=== PATIENT | female | born 1955 | race African-American/Black ===

== ENCOUNTER 2016-12-05 17:10 | Inpatient (IN) | payer OTHER ==
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
[2016-12-05 22:22] LABS: BASOPHIL 0.5 % (0-2.0); EOSINOPHIL 0.4 % (0-4.5); MCH 26.2 pg (25.7-33.7); MCHC 32.4 g/dl (32.0-36.0); MEAN CELL VOLUME 80.9 fl (80-96); MEAN PLT VOLUME 8.3 fl (7.5-11.1); PLATELET COUNT 405 K/MM3 (134-434); RDW 15.8 % (11.6-15.6); WHITE BLOOD COUNT 16.2 K/mm3 (4.0-10.0)
[2016-12-05 22:46] LABS: INR 1.49 (0.82-1.09); PROTHROMBIN TIME (PATIENT) 16.5 SEC (9.98-11.88)
[2016-12-05 22:54] LABS: ALBUMIN 1.9 g/dl (3.4-5.0); ALK PHOS 440 U/L (45-117); ANION GAP 13 (8-16); BILIRUBIN,TOTAL 1.8 mg/dL (0.2-1.0); CALCIUM 8.7 mg/dL (8.5-10.1); CO2 20 mmol/L (21-32); CREATININE 1.5 mg/dL (0.55-1.02); GLUCOSE,RANDOM 94 mg/dL (74-106); SGOT/AST 266 U/L (15-37); SGPT/ALT 178 U/L (12-78); TOT PROT 7.6 g/dl (6.4-8.2)
[2016-12-05 22:56] LABS: CPK 52 IU/L (26-192); TROPONIN I < 0.02 ng/ml (0.00-0.05)
[2016-12-06] MEDS ORDERED: FUROSEMIDE 40 MG/4 ML INJECTABLE VIAL IVPUSH ONE (00:52)
[2016-12-06 01:08] LABS: URINE APPEARANCE CLOUDY; URINE BLOOD NEGATIVE (NEGATIVE); URINE COLOR AMBER; URINE GLUCOSE (UA) NEGATIVE (NEGATIVE); URINE KETONE NEGATIVE (NEGATIVE); URINE LEUK ESTERASE NEGATIVE (NEGATIVE); URINE NITRITE NEGATIVE (NEGATIVE); URINE UROBILINOGEN 4.0 E.U/dl mg/dL (0.2-1.0)
[2016-12-06 01:10] LABS: URINE PROTEIN 1+ (NEGATIVE)
[2016-12-06 01:12] LABS: URINE BACTERIA FEW /hpf (NONE SEEN); URINE HYALINE CAST 20 /lpf; URINE MUCUS RARE; URINE RBC 1 /hpf (0-3); URINE WBC 3 /hpf (3-5)
[2016-12-06] MEDS ORDERED: ENOXAPARIN NA (PORCINE) 80 MG/0.8 ML DISP.SYRIN SQ SCH (02:30)
[2016-12-06] MEDS ORDERED: ENOXAPARIN NA (PORCINE) 80 MG/0.8 ML DISP.SYRIN SQ ONE (03:05)
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
[2016-12-06 06:11] VITALS: BMI 39.2
[2016-12-06] MEDS ORDERED: morphine CARPU-JECT 2 MG/1 ML DISP.SYRIN IVPUSH ONE (06:58)
[2016-12-06 07:07] LABS: BASOPHIL 0.4 % (0-2.0); EOSINOPHIL 0.9 % (0-4.5); MCH 25.6 pg (25.7-33.7); MCHC 31.2 g/dl (32.0-36.0); MEAN PLT VOLUME 8.4 fl (7.5-11.1); NEUTROPHILS 82.1 % (42.8-82.8); PLATELET COUNT 397 K/MM3 (134-434); RDW 15.7 % (11.6-15.6); WHITE BLOOD COUNT 17.3 K/mm3 (4.0-10.0)
[2016-12-06 08:08] LABS: ALK PHOS 439 U/L (45-117); ANION GAP 13 (8-16); BILIRUBIN,TOTAL 2.1 mg/dL (0.2-1.0); CALCIUM 8.8 mg/dL (8.5-10.1); CO2 22 mmol/L (21-32); CPK 93 IU/L (26-192); CREATININE 1.8 mg/dL (0.55-1.02); GLUCOSE,RANDOM 75 mg/dL (74-106); MAGNESIUM 2.1 mg/dL (1.8-2.4); PHOSPHOROUS 4.8 mg/dL (2.5-4.9); SGOT/AST 287 U/L (15-37); SGPT/ALT 181 U/L (12-78); TOT PROT 7.7 g/dl (6.4-8.2); TROPONIN I < 0.02 ng/ml (0.00-0.05)
--- NOTE | 2016-12-06 09:57 | CON.CARD ---
Consult Consult Specialty:: cardiology Reason for Consultation:: martinez - History of Present Illness History of Present Illness: 61 y/o F with a PMHx of hypertension, hypercholesterolemia, and basal cell cancer of the upper lip, recent diagnosis of liver mass presents to the ED with increasing dyspnea on exertion. [facility] for right sided pain. She had multiple CT scans (head, abdomen ) where she was diagnosed with a liver mass. Upon liver mass finding, she was introduced to a bingo manager/oncologist. She has called the office multiple times with no call back. She appears upset because she states she is more symptomatic. Patient also reports she has bilateral leg swelling, which she states is chronic since her bilateral knee replacement. She denies chest pain. She denies nausea, vomiting, diarrhea. She denies urinary complaints. - History Source History Provided By: Patient, Medical Record - Past Medical History Cardio/Vascular: Yes: HTN, Hyperlipdemia Gastrointestinal: Yes: GERD ...: No Psych: Yes: Other (ex ivda) - Past Surgical History Past Surgical History: Yes: Joint Replacement (TKR left) - Alcohol/Substance Use Hx Alcohol Use: No History of Substance Use: reports: Heroin - Smoking History Smoking history: Current some day smoker Have you smoked in the past 12 months: Yes Aproximately how many cigarettes per day: 3 - Social History Usual Living Arrangement: Alone History of Recent Travel: No Home Medications - Allergies Allergies/Adverse Reactions: Allergies Allergy/AdvReac Type Severity Reaction Status Date / Time No Known Allergies Allergy Verified 12/05/16 17:17 - Home Medications Home Medications: Ambulatory Orders Methadone [Dolophine -] 110 mg PO DAILY #7 tab.disper 10/01/13 Aspirin [ASA -] 81 mg PO DAILY 03/02/16 Levofloxacin [Levaquin] 500 mg PO DAILY #10 tablet 03/07/16 Lipase/Protease/Amylase [Cornel Biggs 6,000 Units Capsule] 3 cap PO TIDCM capsule. 03/07/16 Methadone [Dolophine -] 110 mg PO DAILY tablet MDD 1 03/07/16 Metronidazole [Flagyl -] 250 mg PO TID #21 tablet 03/07/16 Review of Systems - Review of Systems Constitutional: reports: No Symptoms Eyes: reports: No Symptoms HENT: reports: No Symptoms Neck: reports: No Symptoms Cardiovascular: reports: No Symptoms, Shortness of Breath Gastrointestinal: reports: No Symptoms Genitourinary: reports: No Symptoms Breasts: reports: No Symptoms Reported Musculoskeletal: reports: No Symptoms Integumentary: reports: No Symptoms Neurological: reports: No Symptoms Endocrine: reports: No Symptoms Hematology/Lymphatic: reports: No Symptoms Psychiatric: reports: No Symptoms Vital Signs: Vital Signs Temperature 98.6 F 12/06/16 08:33 Pulse Rate 102 H 12/06/16 08:33 Respiratory Rate 18 12/06/16 08:33 Blood Pressure 144/80 12/06/16 08:33 O2 Sat by Pulse Oximetry (%) 96 12/06/16 05:54 Constitutional: Yes: Well Nourished, No Distress, Calm Eyes: Yes: WNL, Conjunctiva Clear, EOM Intact HENT: Yes: WNL, Atraumatic, Normocephalic Neck: Yes: WNL, Supple, Trachea Midline Respiratory: Yes: WNL, Regular, CTA Bilaterally Gastrointestinal: Yes: WNL, Normal Bowel Sounds Renal/: Yes: WNL Cardiovascular: Yes: WNL, Regular Rate and Rhythm Musculoskeletal: Yes: WNL Extremities: Yes: WNL Edema: Yes Integumentary: Yes: WNL Neurological: Yes: WNL, Alert, Oriented ...Motor Strength: WNL Psychiatric: Yes: WNL, Alert, Oriented - Other Data Labs, Other Data: CBC, BMP 12/06/16 06:05 12/06/16 06:05 INR, PTT INR 1.49 (0.82-1.09) H D 12/05/16 21:57 Troponin, BNP 12/06/16 06:05 Troponin I < 0.02 Troponin, BNP 12/06/16 06:05 Troponin I < 0.02 Imaging - Results Chest X-ray: Image Reviewed (no i/e) EKG: Image Reviewed (s tachy) Problem List - Problems (1) Abnormal liver function tests Code(s): R79.89 - OTHER SPECIFIED ABNORMAL FINDINGS OF BLOOD CHEMISTRY (2) Anemia Code(s): D64.9 - ANEMIA, UNSPECIFIED Qualifiers: Anemia type: unspecified type Qualified Code(s): D64.9 - Anemia, unspecified (3) Edema of both legs Code(s): R60.0 - LOCALIZED EDEMA (4) Exertional dyspnea Code(s): R06.09 - OTHER FORMS OF DYSPNEA (5) Renal insufficiency Code(s): N28.9 - DISORDER OF KIDNEY AND URETER, UNSPECIFIED (6) Abdominal pain Code(s): R10.9 - UNSPECIFIED ABDOMINAL PAIN (7) Abnormal vaginal bleeding Code(s): N93.9 - ABNORMAL UTERINE AND VAGINAL BLEEDING, UNSPECIFIED (8) Headache Code(s): R51 - HEADACHE Qualifiers: Headache chronicity pattern: unspecified pattern Intractability: not intractable (9) Hypertension Code(s): I10 - ESSENTIAL (PRIMARY) HYPERTENSION (10) IBS (irritable bowel syndrome) Code(s): K58.9 - IRRITABLE BOWEL SYNDROME WITHOUT DIARRHEA (11) Lower abdominal pain Code(s): R10.30 - LOWER ABDOMINAL PAIN, UNSPECIFIED (12) Medication refill Code(s): Z76.0 - ENCOUNTER FOR ISSUE OF REPEAT PRESCRIPTION (13) Rib pain on left side Code(s): R07.81 - PLEURODYNIA (14) Viral syndrome Code(s): B34.9 - VIRAL INFECTION, UNSPECIFIED Assessment/Plan hypertension, hypercholesterolemia, basal cell cancer of the upper lip, recent diagnosis of liver mass abnormal LFT's martinez edema chf plan r/o PE/check d dimers echo obtaine records of maulik w/u at [facility] f/u
[2016-12-06] MEDS ORDERED: FUROSEMIDE 40 MG/4 ML INJECTABLE VIAL IVPUSH SCH (10:00)
[2016-12-06 12:47] LABS: CPK 57 IU/L (26-192); TROPONIN I < 0.02 ng/ml (0.00-0.05)
[2016-12-06] MEDS ORDERED: HEPARIN NA (PORCINE) 5,000 UNITS/ML 1ML VIAL IVPUSH PRN (13:33)
[2016-12-06] MEDS ORDERED: HEPARIN NA (PORCINE) 5,000 UNITS/ML 1ML VIAL IVPUSH ONE ×2 (13:37)
--- NOTE | 2016-12-06 13:57 | HOSP ---
Physical Examination Vital Signs: Vital Signs Temperature 99.4 F 12/06/16 13:40 Pulse Rate 105 H 12/06/16 13:40 Respiratory Rate 20 12/06/16 13:40 Blood Pressure 141/70 12/06/16 13:40 O2 Sat by Pulse Oximetry (%) 96 12/06/16 09:00 Findings/Remarks: ECHO results discussed with Dr. Phillips ([id number]), oscillating mass at the level of the pulmonic valve, cannot exclude thrombus. Start on heparin gtt, PE protocol Discussed with Dr. Hogan [id number]) who will evaluate the patient for V/Q scan Placed call to Dr. Alvarado ([id number]), patient will need BAM Discussed with Dr. Fernandez ([id number]), hx of IVDA (patient reports last use 1 month ago). Will start abx. Blood cultures and HIV testing ordered Current Medications Generic Name Dose Route Start Last Admin Trade Name Freq PRN Reason Stop Dose Admin Heparin Sodium (Porcine) 1,000 unit 12/06/16 13:33 Heparin - IVPUSH PRN PRN Heparin Heparin Sodium (Porcine) 5,000 unit 12/06/16 13:33 Heparin - IVPUSH PRN PRN Heparin Heparin Sodium (Porcine) 25, 500 mls @ 37.08 mls/hr 12/06/16 13:45 12/06/16 15: 57 000 unit/ Sodium Chloride IV 37.08 mls/hr TITR KEITH Administration Protocol 1,854 UNIT/HR Piperacillin Sod/Tazobactam 50 mls @ 100 mls/hr 12/07/16 09:00 Sod 2.25 gm/ Dextrose IVPB Q6H-IV KEITH Protocol Piperacillin Sod/Tazobactam 50 mls @ 100 mls/hr 12/06/16 16:30 Sod 2.25 gm/ Dextrose IVPB 12/07/16 03:29 Q6H-IV KEITH Protocol Objective: Vital Signs Period Temp Pulse Resp BP Sys/Crain Pulse Ox Last 24 Hr 98.6 F-99.4 F 80-120 18-20 121-144/70-94 96-99 Physical Exam: General: lethargic, A&Ox3 Lungs: Decreased breath sound b/l Heart: RRR, S1S2, +murmur Abd: Hepatomegaly, distended. Normoactive bowel sounds Ext: Trace b/l lower extremity edema Neuro: CN 2-12 intact CBCD WBC 17.3 K/mm3 (4.0-10.0) H 12/06/16 06:05 RBC 3.03 M/mm3 (3.60-5.2) L 12/06/16 06:05 Hgb 7.8 GM/dL (10.7-15.3) L 12/06/16 06:05 Hct 24.8 % (32.4-45.2) L 12/06/16 06:05 MCV 82.0 fl (80-96) 12/06/16 06:05 MCHC 31.2 g/dl (32.0-36.0) L 12/06/16 06:05 RDW 15.7 % (11.6-15.6) H 12/06/16 06:05 Plt Count 397 K/MM3 (134-434) 12/06/16 06:05 MPV 8.4 fl (7.5-11.1) 12/06/16 06:05 CMP Sodium 132 mmol/L (136-145) L 12/06/16 06:05 Potassium 5.3 mmol/L (3.5-5.1) H 12/06/16 06:05 Chloride 97 mmol/L (98-107) L 12/06/16 06:05 Carbon Dioxide 22 mmol/L (21-32) 12/06/16 06:05 Anion Gap 13 (8-16) 12/06/16 06:05 BUN 36 mg/dL (7-18) H D 12/06/16 06:05 Creatinine 1.8 mg/dL (0.55-1.02) H 12/06/16 06:05 Creat Clearance w eGFR 28.60 (>60) 12/06/16 06:05 Random Glucose 75 mg/dL (74-106) D 12/06/16 06:05 Calcium 8.8 mg/dL (8.5-10.1) 12/06/16 06:05 Total Bilirubin 2.1 mg/dL (0.2-1.0) H 12/06/16 06:05 AST 287 U/L (15-37) H 12/06/16 06:05 ALT 181 U/L (12-78) H 12/06/16 06:05 Alkaline Phosphatase 439 U/L (45-117) H 12/06/16 06:05 Total Protein 7.7 g/dl (6.4-8.2) 12/06/16 06:05 Albumin 2.0 g/dl (3.4-5.0) L 12/06/16 06:05 CARDIAC ENZYMES Creatine Kinase 57 IU/L (26-192) 12/06/16 11:55 Troponin I < 0.02 ng/ml (0.00-0.05) 12/06/16 11:55 Assessment: This is a 61 year old female with PMHx of basal cell carcinoma of her upper lip, hyperlipidemia, HTN, IVDA on methadone, recently diagnosed liver mass who presented to the ED with shortness of breath and dyspnea on exertion. Plan: 1) Shortness of breath, NARVAEZ - PE vs. new onset CHF - Unable to perform CTA 2/2 COLEMAN - Given Lovenox at 3am. Start on Heparin gtt with PE protocol - ECHO with echogenic, moderate size occulating mass seen at level of pulmonic valve, thrombus needs to be excluded. Hyperdynamic cardiovascular state - Lower extremity doppler negative for DVT - Discussed with Dr. Amaro, will need BAM. Dr. Amaro states he will discuss BAM with Dr. 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 Light (oncologist who evaluated the patient at [facility] ) who states suspicion for HCC. Triple phase MRI or CT was to be done as outpatient for diagnostics - EGD/colonoscopy at [facility] did not reveal any primary lesions Worsening liver functions - F/u liver ultrasound 4) Chronic anemia: - F/u iron studies 5) COLEMAN: - Retention vs. prerenal vs. lasix induced - F/u urine studies - Place landrum catheter for accurate I&O 6) Hx of IVDA - Patient reportedly on Methadone 110mg po daily. Was unable to verify today, will attempt to verify tomorrow 7) F/E/N: - Monitor electrolytes - Appears to have chronic Hyperkalemia: was taken off losartan because of it - Sodium controlled diet, NPO after midnight for possible BAM tomorrow and liver ultrasound 8) Prophylaxis: - On Heparin gtt 9) Dispo: - Requires continued inpatient care CODE STATUS: FULL CODE Labs: CBC, BMP 12/06/16 06:05 12/06/16 06:05
--- NOTE | 2016-12-06 14:24 | CON.PULM ---
Consult Consult Specialty:: PULMONARY Referred by:: HEBER Reason for Consultation:: ABN ECHO - History of Present Illness Chief Complaint: WEAKNESS/SOB/FAILURE TO THRIVE History of Present Illness: 61 y/o F with a PMHx of hypertension, hypercholesterolemia, and basal cell cancer of the upper lip, recent diagnosis of liver mass presents to the ED with increasing dyspnea on exertion. Patient was recently admitted at [facility] from 11/25 - 11/27 for right sided pain. She had multiple CT scans (head, abdomen chest) where she was diagnosed with a liver mass. Upon liver mass finding, she was introduced to a dental hygiene professor/oncologist. She has called the office multiple times with no call back. She appears upset because she states she is more symptomatic. Patient also reports she has bilateral leg swelling, which she states is chronic since her bilateral knee replacement. She denies chest pain. She denies nausea, vomiting, diarrhea. She denies urinary complaints. Former heroin addict now on 110mg methadone. Patient states she was tested a long time ago for hep b /c and hiv and was found to be negative. Our service has been called due to abn echo findings of a possible thrombus at level of pulmonic valve. 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 No: AFIB Gastrointestinal: Yes: GERD ...: No Psych: Yes: Other (ex ivda) - Past Surgical History Past Surgical History: Yes: Joint Replacement (TKR left) - Alcohol/Substance Use Hx Alcohol Use: No History of Substance Use: reports: Heroin - Smoking History Smoking history: Current some day smoker Have you smoked in the past 12 months: Yes Aproximately how many cigarettes per day: 3 - Social History Usual Living Arrangement: Alone Place of : [facility] History of Recent Travel: No Home Medications - Allergies Allergies/Adverse Reactions: Allergies Allergy/AdvReac Type Severity Reaction Status Date / Time No Known Allergies Allergy Verified 12/05/16 17:17 - Home Medications Home Medications: Ambulatory Orders Methadone [Dolophine -] 110 mg PO DAILY #7 tab.disper 10/01/13 Aspirin [ASA -] 81 mg PO DAILY 03/02/16 Levofloxacin [Levaquin] 500 mg PO DAILY #10 tablet 03/07/16 Lipase/Protease/Amylase [Cornel Biggs 6,000 Units Capsule] 3 cap PO TIDCM capsule. 03/07/16 Methadone [Dolophine -] 110 mg PO DAILY tablet MDD 1 03/07/16 Metronidazole [Flagyl -] 250 mg PO TID #21 tablet 03/07/16 Family Disease History - Family Disease History Family History: Unremarkable Review of Systems - Review of Systems Constitutional: reports: Lethargy, Loss of Appetite, Weakness HENT: denies: Difficult Swallowing Neck: denies: Decreased ROM Cardiovascular: denies: Chest Pain Respiratory: reports: SOB on Exertion. denies: Hemoptysis Gastrointestinal: reports: Abdominal Pain Genitourinary: reports: No Symptoms Physical Exam Vital Sings: Vital Signs Temperature 99.4 F 12/06/16 13:40 Pulse Rate 105 H 12/06/16 13:40 Respiratory Rate 20 12/06/16 13:40 Blood Pressure 141/70 12/06/16 13:40 O2 Sat by Pulse Oximetry (%) 96 12/06/16 09:00 Constitutional: Yes: Anxious Eyes: Yes: EOM Intact HENT: Yes: Normocephalic Neck: Yes: Trachea Midline Cardiovascular: Yes: Tachycardia, S1, S2 Respiratory: Yes: CTA Bilaterally Gastrointestinal: Yes: Other (DISTENDED TENSE ABDOMEN) Edema: LLE: 1+, RLE: 1+ Neurological: Yes: Alert Labs: CBC, BMP 12/06/16 06:05 12/06/16 06:05 REST REVIEWED Imaging - Results Chest X-ray: Image Reviewed Cat Scan: Report Reviewed (CHEST/ABD/PELVIS) Other: Report Reviewed (ECHO) Problem List - Problems (1) Abnormal liver function tests Code(s): R79.89 - OTHER SPECIFIED ABNORMAL FINDINGS OF BLOOD CHEMISTRY (2) Anemia Code(s): D64.9 - ANEMIA, UNSPECIFIED Qualifiers: Anemia type: unspecified type Qualified Code(s): D64.9 - Anemia, unspecified (3) Edema of both legs Code(s): R60.0 - LOCALIZED EDEMA (4) Renal insufficiency Code(s): N28.9 - DISORDER OF KIDNEY AND URETER, UNSPECIFIED (5) Abdominal pain Code(s): R10.9 - UNSPECIFIED ABDOMINAL PAIN (6) Liver mass, right lobe Code(s): R16.0 - HEPATOMEGALY, NOT ELSEWHERE CLASSIFIED Assessment/Plan CT REPORT OF LIVER MASS REQUIRING FURTHER DIAGNOSTIC WORKUP WHICH IS COMPLICATED BY POSSIBLE THROMBUS OF PULMONIC VALVE REQUIRING ANTICOAGULATION AGREE WITH BAM/ANTICOAGULATION FOR NOW/V/Q SCAN WILL DEPEND UPON RESULT OF BAM CHECK HEPATIC SEROLOGIES/HIV/KEEP HGB EQUAL TO OR GREATER THAN 8 GMS HAVE REVIEWED ALL REPORTS FROM [facility]. DISCUSSED PLANS WITH PATIENT Rosa ALBA MD
[2016-12-06] MEDS ORDERED: ENOXAPARIN NA (PORCINE) 100 MG/1 ML DISP.SYRIN SQ SCH (15:00)
[2016-12-06] MEDS: HEPARIN - 25,000 UNIT in SODIUM CHLORIDE 495 ML IV SCH (15:57)
[2016-12-06] MEDS ORDERED: VANCOMYCIN 1 GRAM (PRE-DOCKED) 1,000 MG/250 ML BAG IVPB ONE ×2 (16:03→23:30)
--- NOTE | 2016-12-06 16:12 | CONSULT ---
Consult Consult Specialty:: Infectious Diseases Reason for Consultation:: Leukocytosis - History of Present Illness Chief Complaint: SOB on exertion History of Present Illness: 61 year old female with a pmh of HTN, HLD, basal cell CA of the lip, b/l knee replacement, s/p hysterectomy last year and liver mass diagnosed at [facility] during her admission there for feeling ill between (11/25-11/27). At [facility] she also had an upper/lower endoscopy, which was negative for acute pathology as well as negative HBV/HCV. She presented to the ED yesterday with shortness of breath on exertion and the complaint that an oncologist never called her regarding her liver mass. TTE showed mass on pulmonic valve suspect for thrombus. She states that she is a former IV drug user (last use 1 month ago ), and that she is in a methadone program at [facility]. ID consulted for new onset leukocytosis. Patient states that she is feeling poorly and that she has left side pain. States that she has no sick contacts, HIV negative , and has no pets at home. States that she is short of breath when she exerts herself. Denies headache, chest pain, abdominal pain, nausea, vomiting, fever, chills. 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 No: AFIB Gastrointestinal: Yes: GERD ...: No Psych: Yes: Other (ex ivda) - Past Surgical History Past Surgical History: Yes: Joint Replacement (TKR left) - Alcohol/Substance Use Hx Alcohol Use: No History of Substance Use: reports: Heroin - Smoking History Smoking history: Current some day smoker Have you smoked in the past 12 months: Yes Aproximately how many cigarettes per day: 3 - Social History Usual Living Arrangement: Alone History of Recent Travel: No Home Medications - Allergies Allergies/Adverse Reactions: Allergies Allergy/AdvReac Type Severity Reaction Status Date / Time No Known Allergies Allergy Verified 12/05/16 17:17 - Home Medications Home Medications: Ambulatory Orders Methadone [Dolophine -] 110 mg PO DAILY #7 tab.disper 10/01/13 Aspirin [ASA -] 81 mg PO DAILY 03/02/16 Levofloxacin [Levaquin] 500 mg PO DAILY #10 tablet 03/07/16 Lipase/Protease/Amylase [Cornel Biggs 6,000 Units Capsule] 3 cap PO TIDCM capsule. 03/07/16 Methadone [Dolophine -] 110 mg PO DAILY tablet MDD 1 03/07/16 Metronidazole [Flagyl -] 250 mg PO TID #21 tablet 03/07/16 Review of Systems - Review of Systems Constitutional: denies: Chills, Fever, Weakness Eyes: reports: No Symptoms HENT: reports: No Symptoms Neck: reports: No Symptoms Cardiovascular: reports: Shortness of Breath. denies: Chest Pain, Edema, Palpitations Respiratory: reports: SOB on Exertion. denies: Cough Gastrointestinal: denies: Abdominal Pain, Constipation, Diarrhea, Dysphagia, Nausea, Vomiting Genitourinary: reports: No Symptoms Musculoskeletal: reports: No Symptoms Integumentary: reports: No Symptoms Neurological: reports: No Symptoms Endocrine: reports: No Symptoms Hematology/Lymphatic: reports: No Symptoms Psychiatric: reports: No Symptoms Physical Exam Vital Signs: Vital Signs Temperature 99.4 F 12/06/16 13:40 Pulse Rate 105 H 12/06/16 13:40 Respiratory Rate 20 12/06/16 13:40 Blood Pressure 141/70 12/06/16 13:40 O2 Sat by Pulse Oximetry (%) 96 12/06/16 09:00 Constitutional: Yes: No Distress, Calm, Obese Eyes: Yes: Conjunctiva Clear, EOM Intact HENT: Yes: Atraumatic, Normocephalic Neck: Yes: Supple, Trachea Midline Cardiovascular: Yes: Regular Rate and Rhythm Respiratory: Yes: Regular, CTA Bilaterally Gastrointestinal: Yes: Normal Bowel Sounds, Abdomen, Obese, Distention, Hepatomegaly ...Rectal Exam: Yes: WNL Renal/: Yes: WNL Musculoskeletal: Yes: WNL Extremities: Yes: WNL Edema: No Peripheral Pulses WNL: Yes Integumentary: Yes: WNL Neurological: Yes: Alert, Oriented ...Motor Strength: WNL Psychiatric: Yes: Alert, Oriented Labs: CBC, BMP 12/06/16 06:05 12/06/16 06:05 Imaging - Results Chest X-ray: Report Reviewed (No evidence of acute pulmonary disease) Problem List - Problems (1) Abnormal liver function tests Code(s): R79.89 - OTHER SPECIFIED ABNORMAL FINDINGS OF BLOOD CHEMISTRY (2) Leukocytosis Code(s): D72.829 - ELEVATED WHITE BLOOD CELL COUNT, UNSPECIFIED Assessment/Plan 61 year old female with extensive pmh of HTN, HLD, basal cell CA of lip, recently diagnosed liver mass, dyspnea on exertion, and TTE with mass on pulmonic valve suggestive of possible thrombus vs vegetation. -pt with worsening kidney function and hepatic mass with elevated liver enzymes -US abdomen -cover patient for leukocytosis in the setting of possible endocarditis due to recent IV drug abuse -Vanco 1gm once -check random vanc lvl tomorrow -Zosyn 2.25gm IV Q6h 7 days -HCV/HBV tests at [facility] were negative, no need to repeat -
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
[2016-12-06 17:09] LABS: HIV 1 & 2 AB NEGATIVE; HIV 1 AGp24 NEGATIVE
--- NOTE | 2016-12-06 18:40 | EKG ---
Test Reason : Blood Pressure : / mmHG Vent. Rate : 107 BPM Atrial Rate : 107 BPM P-R Int : 146 ms QRS Dur : 082 ms QT Int : 344 ms P-R-T Axes : 046 -07 028 degrees QTc Int : 459 ms POOR DATA QUALITY, INTERPRETATION MAY BE ADVERSELY AFFECTED SINUS TACHYCARDIA POSSIBLE LEFT ATRIAL ENLARGEMENT BORDERLINE ECG WHEN COMPARED WITH ECG OF 04-APR-2015 17:24, T WAVE AMPLITUDE HAS INCREASED IN ANTERIOR LEADS REPEAT EKG IF CLINICALLY INDICATED Confirmed by SANTHOSH KHAN MD ([id number]) on 12/06/2016 6:39:36 PM Referred By: Confirmed By:SANTHOSH KHAN MD
[2016-12-06] MEDS ORDERED: PIPERACILLIN/TAZOBACTAM 2.25 GM VIAL IVPB ONE (21:26)
[2016-12-06] MEDS: PIPERACILLIN/TAZOB 2.25 GM 2.25 GM in DEXTROSE 5%-WATER - 50 ML IVPB SCH (23:32)
[2016-12-07] MEDS: HEPARIN - 25,000 UNIT in SODIUM CHLORIDE 495 ML IV SCH ×3 (01:18→14:27)
[2016-12-07] MEDS: HEPARIN NA (PORCINE) 5,000 UNITS/ML 1ML VIAL IVPUSH PRN ×2 (01:30→09:00)
[2016-12-07] MEDS ORDERED: PIPERACILLIN/TAZOBACTAM 2.25 GM VIAL IVPB ONE ×4 (03:22→22:19)
[2016-12-07] MEDS ORDERED: DEXTROSE 5%-WATER - 50 ML IVPB ONE ×4 (03:23→22:19)
[2016-12-07] MEDS: PIPERACILLIN/TAZOB 2.25 GM 2.25 GM in DEXTROSE 5%-WATER - 50 ML IVPB SCH ×4 (03:30→22:25)
--- NOTE | 2016-12-07 10:23 | PN ---
Progress Note, Physician History of Present Illness: 61 y/o F with a PMHx of hypertension, hypercholesterolemia, and basal cell cancer of the upper lip, recent diagnosis of liver mass presents to the ED with increasing dyspnea on exertion. Patient was recently admitted at [facility] from 11/25 - 11/27 for right sided pain. She had multiple CT scans (head, abdomen ) where she was diagnosed with a liver mass. 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 She has called the office multiple times with no call back. She appears upset because she states she is more symptomatic. Patient also reports she has bilateral leg swelling, which she states is chronic since her bilateral knee replacement. She denies chest pain. She denies nausea, vomiting, diarrhea. She denies urinary complaints. - Current Medication List Current Medications: Active Medications Heparin Sodium (Porcine) (Heparin -) 1,000 unit IVPUSH PRN PRN PRN Reason: Heparin Last Admin: 12/07/16 01:30 Dose: 1,000 unit Heparin Sodium (Porcine) (Heparin -) 5,000 unit IVPUSH PRN PRN PRN Reason: Heparin Heparin Sodium (Porcine) 25, (000 unit/ Sodium Chloride) 500 mls @ 37.08 mls/ hr IV TITR KEITH; 1,854 UNIT/HR PRN Reason: Protocol Last Admin: 12/07/16 01:18 Dose: 39 mls/hr Piperacillin Sod/Tazobactam (Sod 2.25 gm/ Dextrose) 50 mls @ 100 mls/hr IVPB Q6H-IV KEITH PRN Reason: Protocol - Objective Vital Signs: Vital Signs Temperature 99.2 F 12/07/16 05:55 Pulse Rate 105 H 12/07/16 05:55 Respiratory Rate 20 12/07/16 05:55 Blood Pressure 142/83 12/07/16 05:55 O2 Sat by Pulse Oximetry (%) 96 12/06/16 09:00 Eyes: Yes: WNL, Conjunctiva Clear, EOM Intact HENT: Yes: WNL, Atraumatic, Normocephalic Neck: Yes: WNL, Supple, Trachea Midline Cardiovascular: Yes: WNL, Regular Rate and Rhythm Respiratory: Yes: WNL, Regular, CTA Bilaterally Gastrointestinal: Yes: WNL, Normal Bowel Sounds Genitourinary: Yes: WNL Musculoskeletal: Yes: WNL Extremities: Yes: WNL Edema: No Integumentary: Yes: WNL Neurological: Yes: WNL, Alert, Oriented ...Motor Strength: WNL Psychiatric: Yes: WNL Labs: CBC, BMP 12/06/16 06:05 12/06/16 06:05 INR, PTT INR 1.49 (0.82-1.09) H D 12/05/16 21:57 Problem List - Problems (1) Abnormal liver function tests Code(s): R79.89 - OTHER SPECIFIED ABNORMAL FINDINGS OF BLOOD CHEMISTRY (2) Anemia Code(s): D64.9 - ANEMIA, UNSPECIFIED Qualifiers: Anemia type: unspecified type Qualified Code(s): D64.9 - Anemia, unspecified (3) Edema of both legs Code(s): R60.0 - LOCALIZED EDEMA (4) Exertional dyspnea Code(s): R06.09 - OTHER FORMS OF DYSPNEA (5) Renal insufficiency Code(s): N28.9 - DISORDER OF KIDNEY AND URETER, UNSPECIFIED (6) Abdominal pain Code(s): R10.9 - UNSPECIFIED ABDOMINAL PAIN (7) Abnormal vaginal bleeding Code(s): N93.9 - ABNORMAL UTERINE AND VAGINAL BLEEDING, UNSPECIFIED (8) Headache Code(s): R51 - HEADACHE Qualifiers: Headache chronicity pattern: unspecified pattern Intractability: not intractable (9) Hypertension Code(s): I10 - ESSENTIAL (PRIMARY) HYPERTENSION (10) IBS (irritable bowel syndrome) Code(s): K58.9 - IRRITABLE BOWEL SYNDROME WITHOUT DIARRHEA (11) Lower abdominal pain Code(s): R10.30 - LOWER ABDOMINAL PAIN, UNSPECIFIED (12) Medication refill Code(s): Z76.0 - ENCOUNTER FOR ISSUE OF REPEAT PRESCRIPTION (13) Rib pain on left side Code(s): R07.81 - PLEURODYNIA (14) Viral syndrome Code(s): B34.9 - VIRAL INFECTION, UNSPECIFIED Assessment/Plan hypertension, hypercholesterolemia, basal cell cancer of the upper lip, recent diagnosis of liver mass abnormal LFT's martinez edema chf plan r/o PE/ elevated d diamers, cont AC obtaine records of maulik w/u at [facility] will f/u will review echo
--- NOTE | 2016-12-07 11:15 | PN ---
Progress Note (short form) - Note Progress Note: Subjective: The patient was seen was seen and examined at the bedside, she is complaining of dry mouth Current Medications Generic Name Dose Route Start Last Admin Trade Name Hudson PRN Reason Stop Dose Admin Heparin Sodium (Porcine) 1,000 unit 12/06/16 13:33 12/07/16 09:00 Heparin - IVPUSH 1,000 unit PRN PRN Administration Heparin Heparin Sodium (Porcine) 5,000 unit 12/06/16 13:33 Heparin - IVPUSH PRN PRN Heparin Heparin Sodium (Porcine) 25, 500 mls @ 37.08 mls/hr 12/06/16 13:45 12/07/16 09: 00 000 unit/ Sodium Chloride IV 41 mls/hr TITR KEITH Administration Protocol 1,854 UNIT/HR Piperacillin Sod/Tazobactam 50 mls @ 100 mls/hr 12/07/16 09:00 12/07/16 10:39 Sod 2.25 gm/ Dextrose IVPB 100 mls/hr Q6H-IV KEITH Administration Protocol Methadone HCl 110 mg 12/08/16 06:00 Dolophine - PO DAILY@0600 [facility] Objective: Vital Signs Period Temp Pulse Resp BP Sys/Crain Pulse Ox Last 24 Hr 99.0 F-99.4 F 100-108 20-20 115-142/66-83 Physical Exam: General: lethargic, A&Ox3 Lungs: Decreased breath sound b/l Heart: RRR, S1S2, +murmur Abd: Hepatomegaly, distended. Normoactive bowel sounds Ext: Trace b/l lower extremity edema Neuro: CN 2-12 intact CBCD WBC 17.3 K/mm3 (4.0-10.0) H 12/06/16 06:05 RBC 3.03 M/mm3 (3.60-5.2) L 12/06/16 06:05 Hgb 7.8 GM/dL (10.7-15.3) L 12/06/16 06:05 Hct 24.8 % (32.4-45.2) L 12/06/16 06:05 MCV 82.0 fl (80-96) 12/06/16 06:05 MCHC 31.2 g/dl (32.0-36.0) L 12/06/16 06:05 RDW 15.7 % (11.6-15.6) H 12/06/16 06:05 Plt Count 397 K/MM3 (134-434) 12/06/16 06:05 MPV 8.4 fl (7.5-11.1) 12/06/16 06:05 CMP Sodium 132 mmol/L (136-145) L 12/06/16 06:05 Potassium 5.3 mmol/L (3.5-5.1) H 12/06/16 06:05 Chloride 97 mmol/L (98-107) L 12/06/16 06:05 Carbon Dioxide 22 mmol/L (21-32) 12/06/16 06:05 Anion Gap 13 (8-16) 12/06/16 06:05 BUN 36 mg/dL (7-18) H D 12/06/16 06:05 Creatinine 1.8 mg/dL (0.55-1.02) H 12/06/16 06:05 Creat Clearance w eGFR 28.60 (>60) 12/06/16 06:05 Random Glucose 75 mg/dL (74-106) D 12/06/16 06:05 Calcium 8.8 mg/dL (8.5-10.1) 12/06/16 06:05 Total Bilirubin 2.1 mg/dL (0.2-1.0) H 12/06/16 06:05 AST 287 U/L (15-37) H 12/06/16 06:05 ALT 181 U/L (12-78) H 12/06/16 06:05 Alkaline Phosphatase 439 U/L (45-117) H 12/06/16 06:05 Total Protein 7.7 g/dl (6.4-8.2) 12/06/16 06:05 Albumin 2.0 g/dl (3.4-5.0) L 12/06/16 06:05 CARDIAC ENZYMES Creatine Kinase 57 IU/L (26-192) 12/06/16 11:55 Troponin I < 0.02 ng/ml (0.00-0.05) 12/06/16 11:55 Microbiology 12/06/16 01:00 Urine - Urine Clean Catch Urine Culture - Preliminary Assessment: This is a 61 year old female with PMHx of basal cell carcinoma of her upper lip, hyperlipidemia, HTN, IVDA on methadone, recently diagnosed liver mass who presented to the ED with shortness of breath and dyspnea on exertion. Plan: 1) Shortness of breath, NARVAEZ - PE vs. new onset CHF - Unable to perform CTA 2/2 COLEMAN - Given Lovenox at 3am. Start on Heparin gtt with PE protocol - ECHO with echogenic, moderate size occulating mass seen at level of pulmonic valve, thrombus needs to be excluded. Hyperdynamic cardiovascular state - Lower extremity doppler negative for DVT - Awaiting call back from Dr. Alvarado today re: BAM. Will allow the patient to eat today as she is complaining about being hungry. 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 Light (oncologist who evaluated the patient at [facility] ) who states suspicion for HCC. Triple phase MRI or CT was to be done as outpatient for diagnostics - EGD/colonoscopy at [facility] did not reveal any primary lesions Worsening liver functions - Liver ultrasound: Hepatomegaly with fatty infiltration versus hepatocellular disease. Borderline splenomegaly. Partially distended gallbladder with thickening of its wall - F/u surgery consult - F/u GI consult 4) Chronic anemia: - F/u iron studies 5) COLEMAN: - Retention vs. prerenal vs. lasix induced - F/u urine studies - Place landrum catheter for accurate I&O 6) Hx of IVDA - Patient reportedly on Methadone 110mg po daily. Was unable to verify today, will attempt to verify tomorrow 7) F/E/N: - Monitor electrolytes - Appears to have chronic Hyperkalemia: was taken off losartan because of it - Sodium controlled diet 8) Prophylaxis: - On Heparin gtt 9) Dispo: - Requires continued inpatient care CODE STATUS: FULL CODE Visit type - Emergency Visit Emergency Visit: Yes ED Registration Date: 12/06/16 Care time: The patient presented to the Emergency Department on the above date and was hospitalized for further evaluation of their emergent condition. - New Patient This patient is new to me today: No - Critical Care Critical Care patient: No
[2016-12-07 12:17] LABS: BASOPHIL 0.7 % (0-2.0); EOSINOPHIL 0.5 % (0-4.5); MCHC 32.3 g/dl (32.0-36.0); MEAN CELL VOLUME 80.4 fl (80-96); MEAN PLT VOLUME 7.8 fl (7.5-11.1); PLATELET COUNT 359 K/MM3 (134-434); RDW 16.1 % (11.6-15.6); WHITE BLOOD COUNT 17.7 K/mm3 (4.0-10.0)
[2016-12-07] MEDS ORDERED: METHADONE HCL 10 MG TABLET PO SCH ×2 (12:30)
--- NOTE | 2016-12-07 12:50 | PN ---
Progress Note, Physician History of Present Illness: 61 year old female with a pmh of HTN, HLD, basal cell CA of the lip, b/l knee replacement, s/p hysterectomy last year and liver mass diagnosed at [facility] during her admission there for feeling ill between (11/25-11/27). At [facility] she also had an upper/lower endoscopy, which was negative for acute pathology as well as negative HBV/HCV. She presented to the ED yesterday with shortness of breath on exertion and the complaint that an oncologist never called her regarding her liver mass. TTE showed mass on pulmonic valve suspect for thrombus. She states that she is a former IV drug user (last use 1 month ago ), and that she is in a methadone program at [facility]. ID consulted for new leukocytosis. States that she has no sick contacts, HIV negative, and has no pets at home. Patient seen and examined at bedside. States she feels much better than she did yesterday. She has an appetite and is eating. Denies any current complaints including headache, chest pain, shortness of breath, abdominal pain, nausea, vomiting, fever, chills. - Current Medication List Current Medications: Active Medications Heparin Sodium (Porcine) (Heparin -) 1,000 unit IVPUSH PRN PRN PRN Reason: Heparin Last Admin: 12/07/16 09:00 Dose: 1,000 unit Heparin Sodium (Porcine) (Heparin -) 5,000 unit IVPUSH PRN PRN PRN Reason: Heparin Heparin Sodium (Porcine) 25, (000 unit/ Sodium Chloride) 500 mls @ 37.08 mls/ hr IV TITR KEITH; 1,854 UNIT/HR PRN Reason: Protocol Last Admin: 12/07/16 09:00 Dose: 41 mls/hr Piperacillin Sod/Tazobactam (Sod 2.25 gm/ Dextrose) 50 mls @ 100 mls/hr IVPB Q6H-IV KEITH PRN Reason: Protocol Last Admin: 12/07/16 10:39 Dose: 100 mls/hr Methadone HCl (Dolophine -) 110 mg PO DAILY@0600 KEITH - Objective Vital Signs: Vital Signs Temperature 99.2 F 12/07/16 05:55 Pulse Rate 105 H 12/07/16 05:55 Respiratory Rate 20 12/07/16 05:55 Blood Pressure 142/83 12/07/16 05:55 O2 Sat by Pulse Oximetry (%) 96 12/06/16 09:00 Constitutional: Yes: Well Nourished, No Distress, Calm, Obese Eyes: Yes: WNL, Conjunctiva Clear, EOM Intact HENT: Yes: WNL, Atraumatic, Normocephalic Neck: Yes: WNL, Supple, Trachea Midline Cardiovascular: Yes: WNL, Regular Rate and Rhythm, Murmur (Systolic murmur noted ), S1, S2. No: Gallop, Rub Respiratory: Yes: WNL, Regular, CTA Bilaterally. No: Accessory Muscle Use, SOB , Stridor, Tachypnea, Wheezes Gastrointestinal: Yes: WNL, Normal Bowel Sounds, Soft, Abdomen, Obese, Hepatomegaly, Splenomegaly Genitourinary: Yes: Martin Present (Draining orange fluid with sediment) Musculoskeletal: Yes: WNL Extremities: Yes: WNL Edema: No Peripheral Pulses WNL: Yes Integumentary: Yes: Other (chronic scarring noted on neck, face, and stomach) Neurological: Yes: WNL, Alert, Oriented, Cran Nerves II-XII Intact ...Motor Strength: WNL Psychiatric: Yes: Alert, Oriented Labs: CBC, BMP 12/07/16 12:00 INR, PTT INR 1.49 (0.82-1.09) H D 12/05/16 21:57 - ....Imaging Ultrasound: Report Reviewed Problem List - Problems (1) Abnormal liver function tests Code(s): R79.89 - OTHER SPECIFIED ABNORMAL FINDINGS OF BLOOD CHEMISTRY (2) Leukocytosis Code(s): D72.829 - ELEVATED WHITE BLOOD CELL COUNT, UNSPECIFIED Assessment/Plan 61 year old female with extensive pmh of HTN, HLD, basal cell CA of lip, recently diagnosed liver mass, dyspnea on exertion, and TTE with mass on pulmonic valve suggestive of possible thrombus vs vegetation. -pt with worsening kidney function and hepatic mass with elevated liver enzymes -US abdomen showed hepatomegaly with fatty infiltration vs hepatocellular dz ; borderline splenomegaly; partially distended gallbladder with wall thickening and questionable trace pericholecystic fluid; no stones identified -Spoke to radiology, find films from [facility] that describe the mass and possibly obtain MRI without contrast due to renal function -continue to cover patient for leukocytosis in the setting of possible endocarditis due to recent IV drug abuse -Vanco 1gm once given yesterday -random vanc lvl pending, redose if <15 -Zosyn 2.25gm IV Q6h 7 days (day 2 today) -HCV/HBV tests at [facility] were negative, no need to repeat
--- NOTE | 2016-12-07 13:29 | PN ---
Teaching Attending Note Name of Resident: Dalton Srivastava ATTENDING PHYSICIAN STATEMENT I saw and evaluated the patient. I reviewed the resident's note and discussed the case with the resident. I agree with the resident's findings and plan as documented. SUBJECTIVE: feels better no sob hungry just ate lunch OBJECTIVE: Vital Signs Period Temp Pulse Resp BP Sys/Crain Pulse Ox Last 24 Hr 99.0 F-99.4 F 100-108 20-20 115-142/66-83 cor-rrr lungs decreased bs at bases abd firm, +liver edge ext trace edema CBC, BMP 12/07/16 12:00 Microbiology 12/06/16 01:00 Urine - Urine Clean Catch Urine Culture - Preliminary liver sonogram- no mass! partially distended GB with thickened wall ASSESSMENT AND PLAN: abnl echo- ?thrombus, ?veg awaiting BAM continue vanco based on levels continue zosyn- abnl GB on sonogram liver mass- ?repeat imaging- consider MRI of abdomen without karly awaiting GI input COLEMAN-labs pending Problem List - Problems (1) Abnormal echocardiogram Code(s): R93.1 - ABNORMAL FINDINGS ON DX IMAGING OF HEART AND COR CIRC (2) Liver mass, right lobe Code(s): R16.0 - HEPATOMEGALY, NOT ELSEWHERE CLASSIFIED (3) COLEMAN (acute kidney injury) Code(s): N17.9 - ACUTE KIDNEY FAILURE, UNSPECIFIED
[2016-12-07 13:55] LABS: ALBUMIN 1.9 g/dl (3.4-5.0); ALK PHOS 443 U/L (45-117); ANION GAP 15 (8-16); BILIRUBIN,TOTAL 3.3 mg/dL (0.2-1.0); CALCIUM 8.6 mg/dL (8.5-10.1); CO2 20 mmol/L (21-32); CREATININE 1.9 mg/dL (0.55-1.02); GLUCOSE,RANDOM 65 mg/dL (74-106); SGOT/AST 400 U/L (15-37); SGPT/ALT 190 U/L (12-78); TOT PROT 7.4 g/dl (6.4-8.2)
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
[2016-12-07] MEDS ORDERED: VANCOMYCIN 750 MG in DEXTROSE 5%-WATER - 250 ML IVPB ONE ×2 (14:48→22:30)
--- NOTE | 2016-12-07 14:56 | PN ---
Teaching Attending Note Name of Resident: Víctor Terry ATTENDING PHYSICIAN STATEMENT I saw and evaluated the patient. I reviewed the resident's note and discussed the case with the resident. I agree with the resident's findings and plan as documented. Rosa ALBA MD Problem List - Problems (1) Abnormal liver function tests Code(s): R79.89 - OTHER SPECIFIED ABNORMAL FINDINGS OF BLOOD CHEMISTRY (2) Anemia Code(s): D64.9 - ANEMIA, UNSPECIFIED Qualifiers: Qualified Code(s): D64.9 - Anemia, unspecified (3) Edema of both legs Code(s): R60.0 - LOCALIZED EDEMA (4) Renal insufficiency Code(s): N28.9 - DISORDER OF KIDNEY AND URETER, UNSPECIFIED (5) Abdominal pain Code(s): R10.9 - UNSPECIFIED ABDOMINAL PAIN (6) Liver mass, right lobe Code(s): R16.0 - HEPATOMEGALY, NOT ELSEWHERE CLASSIFIED
[2016-12-07] MEDS ORDERED: SODIUM CHLORIDE 1,000 ML IV SCH ×2 (15:30→23:00)
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
[2016-12-07] MEDS: METHADONE 80 MG, METHADONE 30 MG PO SCH (19:03)
[2016-12-07 20:49] LABS: FERRITIN 2342.05 ng/ml (6.9-282.5)
[2016-12-08] MEDS ORDERED: DEXTROSE 5%-WATER - 50 ML IVPB ONE ×4 (03:23→21:43)
[2016-12-08] MEDS ORDERED: PIPERACILLIN/TAZOBACTAM 2.25 GM VIAL IVPB ONE ×4 (03:23→21:43)
[2016-12-08] MEDS: PIPERACILLIN/TAZOB 2.25 GM 2.25 GM in DEXTROSE 5%-WATER - 50 ML IVPB SCH ×4 (03:37→22:02)
[2016-12-08] MEDS ORDERED: METHADONE HCL 10 MG TABLET PO SCH (06:00)
[2016-12-08] MEDS: METHADONE 80 MG, METHADONE 30 MG PO SCH (06:04)
[2016-12-08 06:06] LABS: SERUM IRON 16 ug/dL (27-139); TOTAL IRON BINDING CAPACITY 165 ug/dL (250-450); TRANSFERRIN 125 mg/dL (200-370); UIBC 149 ug/dL (118-369)
[2016-12-08 08:04] LABS: BASOPHIL 0.7 % (0-2.0); EOSINOPHIL 0.8 % (0-4.5); MCH 25.8 pg (25.7-33.7); MCHC 31.9 g/dl (32.0-36.0); MEAN PLT VOLUME 7.9 fl (7.5-11.1); PLATELET COUNT 365 K/MM3 (134-434); RDW 15.8 % (11.6-15.6); WHITE BLOOD COUNT 15.7 K/mm3 (4.0-10.0)
[2016-12-08 08:15] LABS: INR 1.62 (0.82-1.09)
[2016-12-08] MEDS ORDERED: PT OWN MED DRAWER 7, Y5N ONE ×2 (08:30→13:36)
--- NOTE | 2016-12-08 08:44 | PN ---
Progress Note, Physician Chief Complaint: SOB on exertion History of Present Illness: 61 year old female with a pmh of HTN, HLD, basal cell CA of the lip, b/l knee replacement, s/p hysterectomy last year and liver mass diagnosed at [facility] during her admission there for feeling ill between (11/25-11/27). At [facility] she also had an upper/lower endoscopy, which was negative for acute pathology as well as negative HBV/HCV. She presented to the ED yesterday with shortness of breath on exertion and the complaint that an oncologist never called her regarding her liver mass. TTE showed mass on pulmonic valve suspect for thrombus. She states that she is a former IV drug user (last use 1 month ago ), and that she is in a methadone program at [facility]. ID consulted for new leukocytosis. States that she has no sick contacts, HIV negative, and has no pets at home. Patient seen and examined at bedside. States she feels much better. She has an appetite and is eating. Denies any current complaints including headache, chest pain, shortness of breath, abdominal pain, nausea, vomiting, fever, chills. - Current Medication List Current Medications: Active Medications Heparin Sodium (Porcine) (Heparin -) 1,000 unit IVPUSH PRN PRN PRN Reason: Heparin Last Admin: 12/07/16 09:00 Dose: 1,000 unit Heparin Sodium (Porcine) (Heparin -) 5,000 unit IVPUSH PRN PRN PRN Reason: Heparin Heparin Sodium (Porcine) 25, (000 unit/ Sodium Chloride) 500 mls @ 37.08 mls/ hr IV TITR KEITH; 1,854 UNIT/HR PRN Reason: Protocol Last Admin: 12/07/16 14:27 Dose: 41 mls/hr Piperacillin Sod/Tazobactam (Sod 2.25 gm/ Dextrose) 50 mls @ 100 mls/hr IVPB Q6H-IV KEITH PRN Reason: Protocol Last Admin: 12/08/16 03:37 Dose: 100 mls/hr Sodium Chloride (Normal Saline -) 1,000 mls @ 50 mls/hr IV ASDIR KEITH Stop: 12/08/16 15:24 Last Admin: 12/08/16 01:00 Dose: 50 mls/hr Methadone HCl 80 mg/ Methadone (HCl 30 mg) 110 mg PO DAILY@06 KEITH Last Admin: 12/08/16 06:04 Dose: Not Given - Objective Vital Signs: Vital Signs Temperature 98 F 12/08/16 06:00 Pulse Rate 107 H 12/08/16 06:00 Respiratory Rate 20 12/08/16 06:00 Blood Pressure 130/66 12/08/16 06:00 O2 Sat by Pulse Oximetry (%) 100 12/07/16 23:17 Constitutional: Yes: Well Nourished, No Distress, Calm, Obese Eyes: Yes: WNL, Conjunctiva Clear, EOM Intact HENT: Yes: Atraumatic, Normocephalic Neck: Yes: Supple, Trachea Midline Cardiovascular: Yes: Regular Rate and Rhythm, Murmur (holosystolic murmur noted at the 2nd intercostal space), S1, S2 Respiratory: Yes: Regular, CTA Bilaterally. No: Cough, Rales, SOB, Stridor, Wheezes Gastrointestinal: Yes: Normal Bowel Sounds, Abdomen, Obese, Distention. No: Tenderness Musculoskeletal: Yes: WNL Extremities: Yes: WNL Edema: No Peripheral Pulses WNL: Yes Integumentary: Yes: Other (Chronic scarring (keloid-like) noted on face, chest/ back, and abdomen) Neurological: Yes: Alert, Oriented, Cran Nerves II-XII Intact ...Motor Strength: WNL Psychiatric: Yes: Alert, Oriented Labs: CBC, BMP 12/08/16 06:10 INR, PTT INR 1.49 (0.82-1.09) H D 12/05/16 21:57 Problem List - Problems (1) Abnormal liver function tests Code(s): R79.89 - OTHER SPECIFIED ABNORMAL FINDINGS OF BLOOD CHEMISTRY (2) Leukocytosis Code(s): D72.829 - ELEVATED WHITE BLOOD CELL COUNT, UNSPECIFIED Assessment/Plan 61 year old female with extensive pmh of HTN, HLD, basal cell CA of lip, recently diagnosed liver mass, dyspnea on exertion, and TTE with mass on pulmonic valve suggestive of possible thrombus vs vegetation. Patient is NPO and scheduled for BAM today to further assess valvular abnormality. -WBC trending down today, continue to cover patient for leukocytosis in the setting of possible endocarditis due to recent IV drug abuse -Vanco 750gm once given yesterday -obtain random vanc level in am, dose vancomycin -Zosyn 2.25gm IV Q6h 7 days (day 3 today) -HCV/HBV tests at [facility] were negative, no need to repeat -pt with worsening kidney function and hepatic mass with elevated liver enzymes -US abdomen showed hepatomegaly with fatty infiltration vs hepatocellular dz ; borderline splenomegaly; partially distended gallbladder with wall thickening and questionable trace pericholecystic fluid; no stones identified -suggest MRI abdomen w/o contrast
[2016-12-08 08:52] LABS: ALBUMIN 1.6 g/dl (3.4-5.0); ANION GAP 11 (8-16); BILIRUBIN,TOTAL 3.5 mg/dL (0.2-1.0); CALCIUM 8.2 mg/dL (8.5-10.1); CO2 20 mmol/L (21-32); CREATININE 1.9 mg/dL (0.55-1.02); GLUCOSE,RANDOM 76 mg/dL (74-106); SGPT/ALT 234 U/L (12-78); TOT PROT 7.1 g/dl (6.4-8.2)
[2016-12-08 08:53] LABS: ALK PHOS 466 U/L (45-117)
[2016-12-08 08:55] LABS: SGOT/AST 617 U/L (15-37)
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
[2016-12-08] MEDS ORDERED: BISACODYL 10 MG SUPP.RECT RC ONE (10:19)
--- NOTE | 2016-12-08 10:55 | PN ---
Progress Note, Physician Chief Complaint: Pt sitting up at bedside; says she feels "much, much better" compared to yesterday. (Breathes more easily; no abdominal pain or chest pain). History of Present Illness: 46yo Male patient w/ PmHx: HTN, HLD, 1 Stent placement (2000) presents to ED c/ o CP with left arm pain, sweating and nausea which began at 11pm, but worsened throughout the night. Patient states traveling to [facility] 6 months ago, return 1 month ago. He states he does not have a PCP at this time. Patient also took 2 baby ASA prior to arrival. He denies Abd pain, vomiting, diarrhea, fever , diff breathing, rash, or any other complaints at this time. Presenting Symptoms: Chest Pain, Nausea Timing/Duration: reports: constant, getting worse Severity/Quality: reports: mild Location: reports: substernal, back Chest Pain Radiation: reports: back Activities at Onset: reports: no specific activity Prior Chest Pain/Cardiac Workup: reports: Cardiac Cath - Current Medication List Current Medications: Active Medications Bisacodyl (Dulcolax Suppository -) 10 mg MN ONCE ONE Stop: 12/08/16 10:20 Heparin Sodium (Porcine) (Heparin -) 1,000 unit IVPUSH PRN PRN PRN Reason: Heparin Last Admin: 12/07/16 09:00 Dose: 1,000 unit Heparin Sodium (Porcine) (Heparin -) 5,000 unit IVPUSH PRN PRN PRN Reason: Heparin Heparin Sodium (Porcine) 25, (000 unit/ Sodium Chloride) 500 mls @ 37.08 mls/ hr IV TITR KEITH; 1,854 UNIT/HR PRN Reason: Protocol Last Admin: 12/07/16 14:27 Dose: 41 mls/hr Piperacillin Sod/Tazobactam (Sod 2.25 gm/ Dextrose) 50 mls @ 100 mls/hr IVPB Q6H-IV KEITH PRN Reason: Protocol Last Admin: 12/08/16 03:37 Dose: 100 mls/hr Sodium Chloride (Normal Saline -) 1,000 mls @ 50 mls/hr IV ASDIR KEITH Stop: 12/08/16 15:24 Last Admin: 12/08/16 01:00 Dose: 50 mls/hr Methadone HCl 80 mg/ Methadone (HCl 30 mg) 110 mg PO DAILY@06 KEITH Last Admin: 12/08/16 06:04 Dose: Not Given - Objective Vital Signs: Vital Signs Temperature 98 F 12/08/16 06:00 Pulse Rate 107 H 12/08/16 06:00 Respiratory Rate 20 12/08/16 06:00 Blood Pressure 130/66 12/08/16 06:00 O2 Sat by Pulse Oximetry (%) 100 12/07/16 23:17 Constitutional: Yes: Calm Eyes: Yes: WNL HENT: Yes: WNL Neck: Yes: WNL Cardiovascular: Yes: Regular Rate and Rhythm Respiratory: Yes: Diminished (right basde) Gastrointestinal: Yes: Ascites, Distention ...Rectal Exam: Yes: Deferred Genitourinary: No: Anuria Musculoskeletal: Yes: Muscle Weakness Extremities: Yes: Cool, Other (bilateral knee scars (bilateral TKR)) Edema: Yes Edema: LLE: Trace, RLE: Trace Peripheral Pulses WNL: No Peripheral Pulses: Left Doralis Pedis: 1+, Right Dorsalis Pedis: 1+ Neurological: Yes: Alert, Oriented, Weakness Psychiatric: Yes: Alert, Oriented Labs: CBC, BMP 12/08/16 06:10 12/08/16 06:10 INR, PTT INR 1.62 (0.82-1.09) H 12/08/16 06:10 Abnormal Lab Results 12/07/16 12/07/16 12/07/16 12:00 12:00 12:00 WBC 17.7 H RBC 2.98 L Hgb 7.8 L Hct 24.0 L MCHC RDW 16.1 H Neutrophils % 87.0 H Lymphocytes % 4.3 L D INR PTT (Actin FS) Sodium 133 L Carbon Dioxide 20 L BUN 47 H D Creatinine 1.9 H Random Glucose 65 L Calcium Iron 16 L TIBC 165 L Iron Saturation 10 L Transferrin 125 L Ferritin 2342.05 H Total Bilirubin 3.3 H D AST 400 H D ALT 190 H Alkaline Phosphatase 443 H Albumin 1.9 L 12/07/16 12/08/16 12/08/16 12:00 06:10 06:10 WBC 15.7 H RBC 2.88 L Hgb 7.4 L Hct 23.3 L MCHC 31.9 L RDW 15.8 H Neutrophils % 85.0 H Lymphocytes % 5.3 L D INR PTT (Actin FS) 60.9 H 44.6 H Sodium Carbon Dioxide BUN Creatinine Random Glucose Calcium Iron TIBC Iron Saturation Transferrin Ferritin Total Bilirubin AST ALT Alkaline Phosphatase Albumin 12/08/16 12/08/16 06:10 06:10 WBC RBC Hgb Hct MCHC RDW Neutrophils % Lymphocytes % INR 1.62 H PTT (Actin FS) Sodium 133 L Carbon Dioxide 20 L BUN 52 H Creatinine 1.9 H Random Glucose Calcium 8.2 L Iron TIBC Iron Saturation Transferrin Ferritin Total Bilirubin 3.5 H AST 617 H D ALT 234 H D Alkaline Phosphatase 466 H Albumin 1.6 L - ....Imaging Other: Image Reviewed (telemetry: NSR;) Problem List - Problems (1) Abnormal liver function tests Assessment/Plan: liver dysfunction. F/u workup done at [facility] (and ?[place]). Abdominal distention. Code(s): R79.89 - OTHER SPECIFIED ABNORMAL FINDINGS OF BLOOD CHEMISTRY (2) Anemia Code(s): D64.9 - ANEMIA, UNSPECIFIED Qualifiers: Anemia type: unspecified type Qualified Code(s): D64.9 - Anemia, unspecified (3) Edema of both legs Code(s): R60.0 - LOCALIZED EDEMA (4) Exertional dyspnea Code(s): R06.09 - OTHER FORMS OF DYSPNEA (5) Liver mass, right lobe Code(s): R16.0 - HEPATOMEGALY, NOT ELSEWHERE CLASSIFIED (6) Renal insufficiency Code(s): N28.9 - DISORDER OF KIDNEY AND URETER, UNSPECIFIED (7) Hypertension Code(s): I10 - ESSENTIAL (PRIMARY) HYPERTENSION (8) Lower abdominal pain Code(s): R10.30 - LOWER ABDOMINAL PAIN, UNSPECIFIED (9) Abnormal echocardiogram Assessment/Plan: For BAM to r/o pulmonary valve abnormality or thrombus. Code(s): R93.1 - ABNORMAL FINDINGS ON DX IMAGING OF HEART AND COR CIRC
[2016-12-08] MEDS: HEPARIN - 25,000 UNIT in SODIUM CHLORIDE 495 ML IV SCH (11:00)
--- NOTE | 2016-12-08 11:02 | PN ---
Teaching Attending Note Name of Resident: Dalton Srivastava ATTENDING PHYSICIAN STATEMENT I saw and evaluated the patient. I reviewed the resident's note and discussed the case with the resident. I agree with the resident's findings and plan as documented. SUBJECTIVE:Vancomycin and Zosyn NO specific complaints Blood cultures no growth OBJECTIVE: Selected Entries 12/08/16 06:00 Temperature 98 F Pulse Rate 107 H Respiratory 20 Rate Blood Pressure 130/66 ASSESSMENT AND PLAN:Ruling out endocarditis though blood cultures neg Plan Depending on BAM may stop antibiotics Workup for mass liver in progress Ivana GILBERT
[2016-12-08 11:33] LABS: C-REACTIVE PROTEIN 25.8 MG/DL (0.00-0.3)
[2016-12-08] MEDS ORDERED: LIDOCAINE VISCOUS 2% ORAL/TOP 20 ML UNIT-DOSE CUP MM ONE (12:22)
[2016-12-08] MEDS ORDERED: PROPOFOL 20 ML ONE (12:24)
--- NOTE | 2016-12-08 12:59 | PN ---
Progress Note, Physician History of Present Illness: PULMONARY ALERT,NAD,-CP,-SOB - Current Medication List Current Medications: Active Medications Heparin Sodium (Porcine) (Heparin -) 1,000 unit IVPUSH PRN PRN PRN Reason: Heparin Last Admin: 12/07/16 09:00 Dose: 1,000 unit Heparin Sodium (Porcine) (Heparin -) 5,000 unit IVPUSH PRN PRN PRN Reason: Heparin Heparin Sodium (Porcine) 25, (000 unit/ Sodium Chloride) 500 mls @ 37.08 mls/ hr IV TITR KEITH; 1,854 UNIT/HR PRN Reason: Protocol Last Admin: 12/07/16 14:27 Dose: 41 mls/hr Piperacillin Sod/Tazobactam (Sod 2.25 gm/ Dextrose) 50 mls @ 100 mls/hr IVPB Q6H-IV KEITH PRN Reason: Protocol Last Admin: 12/08/16 10:54 Dose: 100 mls/hr Sodium Chloride (Normal Saline -) 1,000 mls @ 50 mls/hr IV ASDIR KEITH Stop: 12/08/16 15:24 Last Admin: 12/08/16 01:00 Dose: 50 mls/hr Methadone HCl 80 mg/ Methadone (HCl 30 mg) 110 mg PO DAILY@06 KEITH Last Admin: 12/08/16 06:04 Dose: Not Given - Objective Vital Signs: Vital Signs Temperature 98.4 F 12/08/16 10:00 Pulse Rate 108 H 12/08/16 10:00 Respiratory Rate 20 12/08/16 10:00 Blood Pressure 118/63 12/08/16 10:00 O2 Sat by Pulse Oximetry (%) 99 12/08/16 10:00 Constitutional: Yes: Well Nourished, Calm Eyes: Yes: WNL HENT: Yes: WNL Neck: Yes: WNL Cardiovascular: Yes: Regular Rate and Rhythm, S1, S2 Respiratory: Yes: Diminished Gastrointestinal: Yes: Normal Bowel Sounds, Soft Extremities: Yes: WNL Edema: Yes Labs: CBC, BMP 12/08/16 06:10 12/08/16 06:10 INR, PTT INR 1.62 (0.82-1.09) H 12/08/16 06:10
--- NOTE | 2016-12-08 13:28 | PN ---
Progress Note, Physician Chief Complaint: SOB on exertion History of Present Illness: 61 year old female with a pmh of HTN, HLD, basal cell CA of the lip, b/l knee replacement, s/p hysterectomy last year and liver mass diagnosed at [facility] during her admission there for feeling ill between (11/25-11/27). At [facility] she also had an upper/lower endoscopy, which was negative for acute pathology as well as negative HBV/HCV. She presented to the ED yesterday with shortness of breath on exertion. TTE showed mass on pulmonic valve suspect for thrombus. She states that she is a former IV drug user (last use 1 month ago), and that she is in a methadone program at [facility]. ID consulted for new onset leukocytosis. States that she has no sick contacts, HIV negative, and has no pets at home. Patient seen and examined at bedside. States she feels much better than she did yesterday. Needs to use the restroom. Denies any current complaints including headache, chest pain, shortness of breath, abdominal pain, nausea, vomiting, fever, chills. - Current Medication List Current Medications: Active Medications Heparin Sodium (Porcine) (Heparin -) 1,000 unit IVPUSH PRN PRN PRN Reason: Heparin Last Admin: 12/07/16 09:00 Dose: 1,000 unit Heparin Sodium (Porcine) (Heparin -) 5,000 unit IVPUSH PRN PRN PRN Reason: Heparin Heparin Sodium (Porcine) 25, (000 unit/ Sodium Chloride) 500 mls @ 37.08 mls/ hr IV TITR KEITH; 1,854 UNIT/HR PRN Reason: Protocol Last Admin: 12/07/16 14:27 Dose: 41 mls/hr Piperacillin Sod/Tazobactam (Sod 2.25 gm/ Dextrose) 50 mls @ 100 mls/hr IVPB Q6H-IV KEITH PRN Reason: Protocol Last Admin: 12/08/16 10:54 Dose: 100 mls/hr Sodium Chloride (Normal Saline -) 1,000 mls @ 50 mls/hr IV ASDIR KEITH Stop: 12/08/16 15:24 Last Admin: 12/08/16 01:00 Dose: 50 mls/hr Methadone HCl 80 mg/ Methadone (HCl 30 mg) 110 mg PO DAILY@06 KEITH Last Admin: 12/08/16 06:04 Dose: Not Given - Objective Vital Signs: Vital Signs Temperature 98.2 F 12/08/16 12:33 Pulse Rate 109 H 12/08/16 12:48 Respiratory Rate 20 12/08/16 12:48 Blood Pressure 120/67 12/08/16 12:48 O2 Sat by Pulse Oximetry (%) 100 12/08/16 12:48 Constitutional: Yes: Well Nourished, No Distress, Calm Eyes: Yes: WNL, Conjunctiva Clear, EOM Intact HENT: Yes: WNL, Atraumatic, Normocephalic Neck: Yes: WNL, Supple, Trachea Midline Cardiovascular: Yes: Regular Rate and Rhythm, Murmur (systolic murmur noted), S1 , S2 Respiratory: Yes: Regular, CTA Bilaterally. No: Rales, SOB, Stridor, Wheezes Gastrointestinal: Yes: Normal Bowel Sounds, Soft, Distention Musculoskeletal: Yes: WNL Extremities: Yes: WNL Edema: No Peripheral Pulses WNL: Yes Integumentary: Yes: Other (Chronic keloid scarring noted on face, chest, back) Labs: CBC, BMP 12/08/16 06:10 12/08/16 06:10 INR, PTT INR 1.62 (0.82-1.09) H 12/08/16 06:10 Problem List - Problems (1) Leukocytosis Code(s): D72.829 - ELEVATED WHITE BLOOD CELL COUNT, UNSPECIFIED Assessment/Plan 61 year old female with extensive pmh of HTN, HLD, basal cell CA of lip, recently diagnosed liver mass, dyspnea on exertion, and TTE with mass on pulmonic valve suggestive of possible thrombus vs vegetation. Patient is NPO and scheduled for BAM today to further assess valvular abnormality. -WBC trending down today, continue to cover patient for leukocytosis in the setting of possible endocarditis due to recent IV drug abuse -f/u BAM -vancomycin -continue Zosyn 2.25gm IV Q6h 7 days (day 3 today) -may stop antibiotics pending results of BAM -pt with worsening kidney function and hepatic mass with elevated liver enzymes -US abdomen showed hepatomegaly with fatty infiltration vs hepatocellular dz ; borderline splenomegaly; partially distended gallbladder with wall thickening and questionable trace pericholecystic fluid; no stones identified -suggest MRI abdomen w/o contrast
--- NOTE | 2016-12-08 13:31 | PN ---
Progress Note (short form) - Note Progress Note: Cardiology Procedure note Risks and benefits were discussed. Consent obtained. Official report to follow Dewey Nix MD
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
[2016-12-09] MEDS: PIPERACILLIN/TAZOB 2.25 GM 2.25 GM in DEXTROSE 5%-WATER - 50 ML IVPB SCH ×2 (04:48→10:13)
[2016-12-09] MEDS: HEPARIN - 25,000 UNIT in SODIUM CHLORIDE 495 ML IV SCH ×2 (04:49→17:10)
[2016-12-09] MEDS ORDERED: METHADONE HCL 40 MG DISPERSABLE TABLET ONE (06:51)
[2016-12-09] MEDS ORDERED: METHADONE HCL 10 MG TABLET ONE (06:51)
[2016-12-09] MEDS: METHADONE 80 MG, METHADONE 30 MG PO SCH (06:56)
[2016-12-09 09:00] LABS: MCH 25.4 pg (25.7-33.7); MCHC 31.3 g/dl (32.0-36.0); MEAN PLT VOLUME 7.8 fl (7.5-11.1); PLATELET COUNT 343 K/MM3 (134-434); RDW 16.4 % (11.6-15.6); WHITE BLOOD COUNT 18.6 K/mm3 (4.0-10.0)
[2016-12-09] MEDS ORDERED: DEXTROSE 5%-WATER - 50 ML IVPB ONE (10:01)
[2016-12-09] MEDS ORDERED: PIPERACILLIN/TAZOBACTAM 2.25 GM VIAL IVPB ONE (10:01)
--- NOTE | 2016-12-09 10:42 | PN ---
Progress Note, Physician Chief Complaint: Pt denies chest pain, dyspnea, or abdominal salcido. She is depressed that her health, which had been "very good", has "all of a sudden given me all kinds of problems and hospitalizations". History of Present Illness: 46yo Male patient w/ PmHx: HTN, HLD, 1 Stent placement (2000) presents to ED c/ o CP with left arm pain, sweating and nausea which began at 11pm, but worsened throughout the night. Patient states traveling to [facility] 6 months ago, return 1 month ago. He states he does not have a PCP at this time. Patient also took 2 baby ASA prior to arrival. He denies Abd pain, vomiting, diarrhea, fever , diff breathing, rash, or any other complaints at this time. Presenting Symptoms: Chest Pain, Nausea Timing/Duration: reports: constant, getting worse Severity/Quality: reports: mild Location: reports: substernal, back Chest Pain Radiation: reports: back Activities at Onset: reports: no specific activity Prior Chest Pain/Cardiac Workup: reports: Cardiac Cath - Current Medication List Current Medications: Active Medications Heparin Sodium (Porcine) (Heparin -) 1,000 unit IVPUSH PRN PRN PRN Reason: Heparin Last Admin: 12/07/16 09:00 Dose: 1,000 unit Heparin Sodium (Porcine) (Heparin -) 5,000 unit IVPUSH PRN PRN PRN Reason: Heparin Last Admin: 12/08/16 17:20 Dose: 5,000 unit Heparin Sodium (Porcine) 25, (000 unit/ Sodium Chloride) 500 mls @ 37.08 mls/ hr IV TITR KEITH; 1,854 UNIT/HR PRN Reason: Protocol Last Admin: 12/09/16 04:49 Dose: 46 mls/hr Piperacillin Sod/Tazobactam (Sod 2.25 gm/ Dextrose) 50 mls @ 100 mls/hr IVPB Q6H-IV KEITH PRN Reason: Protocol Last Admin: 12/09/16 10:13 Dose: 100 mls/hr Methadone HCl 80 mg/ Methadone (HCl 30 mg) 110 mg PO DAILY@06 KEITH Last Admin: 12/09/16 06:56 Dose: 110 mg - Objective Vital Signs: Vital Signs Temperature 98 F 12/09/16 05:00 Pulse Rate 105 H 12/09/16 05:00 Respiratory Rate 20 12/09/16 05:00 Blood Pressure 120/58 12/09/16 05:00 O2 Sat by Pulse Oximetry (%) 97 12/08/16 21:13 Constitutional: Yes: Anxious Eyes: Yes: WNL HENT: Yes: WNL Neck: Yes: WNL Respiratory: Yes: Regular Gastrointestinal: Yes: Distention ...Rectal Exam: Yes: Deferred Genitourinary: No: Anuria Breast(s): Yes: WNL Extremities: Yes: Cool Edema: Yes Edema: LLE: 1+, RLE: 1+ Peripheral Pulses WNL: No Peripheral Pulses: Left Doralis Pedis: 1+, Right Dorsalis Pedis: 1+ Neurological: Yes: Alert, Oriented, Weakness Psychiatric: Yes: Other Labs: CBC, BMP 12/09/16 08:30 INR, PTT INR 1.62 (0.82-1.09) H 12/08/16 06:10 Problem List - Problems (1) Abnormal liver function tests Assessment/Plan: liver dysfunction. F/u workup done at [facility] (and ?[place]). Abdominal distention. Code(s): R79.89 - OTHER SPECIFIED ABNORMAL FINDINGS OF BLOOD CHEMISTRY (2) Anemia Assessment/Plan: To receive PRBCs today for drop in Hb.F/u workup for etiology. On IV heparin for presumed PE. Code(s): D64.9 - ANEMIA, UNSPECIFIED Qualifiers: Anemia type: unspecified type Qualified Code(s): D64.9 - Anemia, unspecified (3) Edema of both legs Code(s): R60.0 - LOCALIZED EDEMA (4) Exertional dyspnea Code(s): R06.09 - OTHER FORMS OF DYSPNEA (5) Liver mass, right lobe Code(s): R16.0 - HEPATOMEGALY, NOT ELSEWHERE CLASSIFIED (6) Renal insufficiency Code(s): N28.9 - DISORDER OF KIDNEY AND URETER, UNSPECIFIED (7) Hypertension Code(s): I10 - ESSENTIAL (PRIMARY) HYPERTENSION (8) Lower abdominal pain Code(s): R10.30 - LOWER ABDOMINAL PAIN, UNSPECIFIED (9) Abnormal echocardiogram Assessment/Plan: BAM (done to assess abnormalities noted on TTE): normal LVEF; no pulmonary valve abnormality; no vegetations; small pericardial effusion; RVOT abnormality is an artifact. Code(s): R93.1 - ABNORMAL FINDINGS ON DX IMAGING OF HEART AND COR CIRC
[2016-12-09 11:00] LABS: TOTAL CELLS COUNTED 100
[2016-12-09 11:08] LABS: ANISOCYTOSIS 1+; HYPOCHROMIA 1+; MICROCYTOSIS 1+; POLYCHROMASIA 1+; TEAR DROP CELLS 1+
[2016-12-09 11:35] LABS: ALBUMIN 1.6 g/dl (3.4-5.0); ALK PHOS 536 U/L (45-117); ANION GAP 17 (8-16); CALCIUM 8.7 mg/dL (8.5-10.1); CO2 16 mmol/L (21-32); CREATININE 2.3 mg/dL (0.55-1.02); GLUCOSE,RANDOM 88 mg/dL (74-106); MAGNESIUM 2.5 mg/dL (1.8-2.4); SGOT/AST 767 U/L (15-37); SGPT/ALT 294 U/L (12-78); TOT PROT 7.1 g/dl (6.4-8.2)
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
[2016-12-09 12:47] LABS: URINE MARIJUANA THC NEGATIVE ng/ml (CUTOFF=50)
--- NOTE | 2016-12-09 13:06 | PN ---
Teaching Attending Note Name of Resident: Víctor Terry ATTENDING PHYSICIAN STATEMENT I saw and evaluated the patient. I reviewed the resident's note and discussed the case with the resident. I agree with the resident's findings and plan as documented. pulmonary alert,nad,-sob,-cp, echo - IMP LIVER MASS DYSPNEA IMPROVED ANEMIA COLEMAN PLAN MRI LIVER TRANSFUSE MONITOR H+H,LYTES MONITOR RENAL FUNCTION DR ROJAS Problem List - Problems (1) COLEMAN (acute kidney injury) Code(s): N17.9 - ACUTE KIDNEY FAILURE, UNSPECIFIED (2) Abnormal liver function tests Code(s): R79.89 - OTHER SPECIFIED ABNORMAL FINDINGS OF BLOOD CHEMISTRY (3) Exertional dyspnea Code(s): R06.09 - OTHER FORMS OF DYSPNEA (4) Leukocytosis Code(s): D72.829 - ELEVATED WHITE BLOOD CELL COUNT, UNSPECIFIED (5) Liver mass, right lobe Code(s): R16.0 - HEPATOMEGALY, NOT ELSEWHERE CLASSIFIED (6) Renal insufficiency Code(s): N28.9 - DISORDER OF KIDNEY AND URETER, UNSPECIFIED
[2016-12-09 13:13] LABS: SODIUM,RANDOM URINE 11 MMOL/L
--- NOTE | 2016-12-09 13:20 | PN ---
Progress Note (short form) - Note Progress Note: ID Remains on PIp Tzobactam NO fever and no distress Microbiology 12/06/16 01:00 Urine - Urine Clean Catch Urine Culture - Final Contaminated: Please Repeat 12/06/16 14:45 Blood - Peripheral Venous Blood Culture - Preliminary NO GROWTH OBTAINED AFTER 24 HOURS, INCUBATION TO CONTINUE FOR 4 DAYS. 12/06/16 14:45 Blood - Peripheral Venous Blood Culture - Preliminary NO GROWTH OBTAINED AFTER 24 HOURS, INCUBATION TO CONTINUE FOR 4 DAYS. Selected Entries 12/09/16 09:00 Temperature 97.8 F Pulse Rate 102 H Respiratory 20 Rate Laboratory Tests 12/06/16 12/08/16 12/08/16 15:30 06:10 06:10 WBC 15.7 H Hgb 7.4 L Hct 23.3 L Plt Count 365 Total Bilirubin 3.5 H Alkaline Phosphatase 466 H Total Protein 7.1 Albumin 1.6 L HIV 1&2 Antibody Screen Negative HIV P24 Antigen Negative Assessment IN view of negative BAM for vegetations can stop antibiotic BLood cultures have been no growth 4 sets. Will stop the drug Ivana GILBERT
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
[2016-12-09 14:54] LABS: OSMOLALITY,SERUM 297 mosm/kg (278-305)
[2016-12-09] MEDS ORDERED: LORazepam 2 MG/ML SDV VIAL IVPUSH ONE (17:00)
--- NOTE | 2016-12-09 17:15 | PN ---
Progress Note (short form) - Note Progress Note: Liver Mass Transaminitis COLEMAN/ R/O hepatorenal Severe Hypoalbuminemia Current Medications mild anasarca Heparin Sodium (Porcine) (Heparin -) 1,000 unit IVPUSH PRN PRN PRN Reason: Heparin Last Admin: 12/07/16 09:00 Dose: 1,000 unit Heparin Sodium (Porcine) (Heparin -) 5,000 unit IVPUSH PRN PRN PRN Reason: Heparin Last Admin: 12/08/16 17:20 Dose: 5,000 unit Heparin Sodium (Porcine) 25, (000 unit/ Sodium Chloride) 500 mls @ 37.08 mls/ hr IV TITR KEITH; 1,854 UNIT/HR PRN Reason: Protocol Last Admin: 12/09/16 17:10 Dose: 46 mls/hr Methadone HCl 80 mg/ Methadone (HCl 30 mg) 110 mg PO DAILY@06 KEITH Last Admin: 12/09/16 06:56 Dose: 110 mg Last Vital Signs Temp Pulse Resp BP Pulse Ox 97.4 F L 92 H 20 119/68 98 12/09/16 14:04 12/09/16 14:04 12/09/16 14:04 12/09/16 14:04 12/09/16 09:00 Lungs clear Heart RRR Abd soft Ext edema CBC, BMP 12/09/16 08:30 12/09/16 08:30 IMP- coleman r/o hepatorenal syndrome May still be volume depleted intravascular since her peripheral edema is not very pronounced Plan- check urine electrolytes will eval FENa trial of normal saline at some point if urine indices are inconclusive
[2016-12-09 22:48] LABS: MCH 26.7 pg (25.7-33.7); MCHC 32.7 g/dl (32.0-36.0); MEAN CELL VOLUME 81.8 fl (80-96); MEAN PLT VOLUME 8.1 fl (7.5-11.1); PLATELET COUNT 342 K/MM3 (134-434); RDW 16.3 % (11.6-15.6); WHITE BLOOD COUNT 20.5 K/mm3 (4.0-10.0)
[2016-12-09 23:37] LABS: TOTAL CELLS COUNTED 100
[2016-12-09 23:38] LABS: METAMYELOCYTE 2 % (0-2); MYELOCYTE 1 % (0-2)
[2016-12-09 23:40] LABS: HYPOCHROMIA OCCASIONAL; PLATELET ESTIMATE ADEQUATE (NORMAL); POLYCHROMASIA 1+
[2016-12-10] MEDS: HEPARIN - 25,000 UNIT in SODIUM CHLORIDE 495 ML IV SCH ×2 (05:34→17:12)
[2016-12-10] MEDS: METHADONE 80 MG, METHADONE 30 MG PO SCH (05:35)
[2016-12-10 07:41] LABS: MCH 26.1 pg (25.7-33.7); MCHC 32.1 g/dl (32.0-36.0); MEAN CELL VOLUME 81.2 fl (80-96); MEAN PLT VOLUME 7.9 fl (7.5-11.1); PLATELET COUNT 328 K/MM3 (134-434); RDW 16.1 % (11.6-15.6); WHITE BLOOD COUNT 18.1 K/mm3 (4.0-10.0)
[2016-12-10 09:04] LABS: ALBUMIN 1.6 g/dl (3.4-5.0); ANION GAP 17 (8-16); CALCIUM 8.9 mg/dL (8.5-10.1); CO2 17 mmol/L (21-32); CREATININE 2.3 mg/dL (0.55-1.02); GLUCOSE,RANDOM 56 mg/dL (74-106); MAGNESIUM 2.7 mg/dL (1.8-2.4); SGPT/ALT 297 U/L (12-78)
[2016-12-10 09:10] LABS: ALK PHOS 505 U/L (45-117); BILIRUBIN,TOTAL 6.2 mg/dL (0.2-1.0); TOT PROT 6.9 g/dl (6.4-8.2)
[2016-12-10 09:13] LABS: SGOT/AST 666 U/L (15-37); URIC ACID 12.1 mg/dL (2.6-7.2)
[2016-12-10 10:11] LABS: METAMYELOCYTE 1 % (0-2); PLATELET ESTIMATE ADEQUATE (NORMAL); TOTAL CELLS COUNTED 100
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
--- NOTE | 2016-12-10 12:24 | PN ---
Progress Note (short form) - Note Progress Note: PULMONARY States breathing is improving. Denies abdominal pain. No fevers or chills. Last Vital Signs Temp Pulse Resp BP Pulse Ox 98.2 F 100 H 18 117/66 98 12/10/16 10:00 12/10/16 10:00 12/10/16 10:00 12/10/16 10:00 12/10/16 09:00 Intake & Output 12/07/16 12/08/16 12/09/16 12/10/16 23:59 23:59 23:59 23:59 Intake Total 1269 1472 1292 952 Output Total 1050 650 800 Balance 219 822 492 952 Weight 220 lb 3.2 oz 230 lb 229 lb 12.8 oz Gen: mildly tachypneic at rest Heart: tachycardic, regular Lung: decreased breath sounds at the bases Abd: hepatomegaly, nontender Ext: + edema CBC, BMP 12/10/16 06:00 12/10/16 06:00 Active Medications Heparin Sodium (Porcine) (Heparin -) 1,000 unit IVPUSH PRN PRN PRN Reason: Heparin Last Admin: 12/07/16 09:00 Dose: 1,000 unit Heparin Sodium (Porcine) (Heparin -) 5,000 unit IVPUSH PRN PRN PRN Reason: Heparin Last Admin: 12/08/16 17:20 Dose: 5,000 unit Heparin Sodium (Porcine) 25, (000 unit/ Sodium Chloride) 500 mls @ 37.08 mls/ hr IV TITR KEITH; 1,854 UNIT/HR PRN Reason: Protocol Last Admin: 12/10/16 05:34 Dose: 46 mls/hr Methadone HCl 80 mg/ Methadone (HCl 30 mg) 110 mg PO DAILY@06 KEITH Last Admin: 12/10/16 05:35 Dose: Not Given A/P Liver Mass/Hepatomegaly r/o PE Elevated R Hemidiaphragm from above Acute Kidney Injury Anemia - on empiric anticoagulation - V/Q scan - suspect diaphragmatic compression contributing to dyspnea - monitor H/H - monitor urine output, creatinine
[2016-12-10] MEDS ORDERED: SODIUM CHLORIDE 1,000 ML IV SCH ×3 (15:15→22:05)
[2016-12-10 18:30] LABS: ARTERIAL BLOOD GAS PO2 86.9 mmHg (80-100); ARTERIAL BLOOD GAS pH 7.34 (7.35-7.45)
[2016-12-10 18:31] LABS: ALLENS TEST POSITIVE; ART PUNCT SITE RIGHT RADIAL; ARTERIAL BLD GAS O2 SATURATION 95.7 % (90-98.9); ARTERIAL BLOOD GAS BASE EXCESS -9.9 meq/l (-2-2); LPM/O2% 21%; PT. ON O2? NO
[2016-12-10 18:32] LABS: TYPE OF O2 R/A
[2016-12-10 18:33] LABS: ARTERIAL BLOOD GAS HCO3 14.5 meq/L (22-26)
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
--- NOTE | 2016-12-10 22:08 | PN ---
Progress Note (short form) - Note Progress Note: Liver Mass Transaminitis COLEMAN/ R/O hepatorenal Severe Hypoalbuminemia Current Medications mild anasarca Current Medications Heparin Sodium (Porcine) (Heparin -) 1,000 unit IVPUSH PRN PRN PRN Reason: Heparin Last Admin: 12/07/16 09:00 Dose: 1,000 unit Heparin Sodium (Porcine) (Heparin -) 5,000 unit IVPUSH PRN PRN PRN Reason: Heparin Last Admin: 12/08/16 17:20 Dose: 5,000 unit Heparin Sodium (Porcine) 25, (000 unit/ Sodium Chloride) 500 mls @ 37.08 mls/ hr IV TITR KEITH; 1,854 UNIT/HR PRN Reason: Protocol Last Admin: 12/10/16 17:12 Dose: 46 mls/hr Sodium Chloride (Normal Saline -) 1,000 mls @ 50 mls/hr IV ASDIR KEITH Stop: 12/11/16 19:28 Methadone HCl 80 mg/ Methadone (HCl 30 mg) 110 mg PO DAILY@06 KEITH Last Admin: 12/10/16 05:35 Dose: Not Given Last Vital Signs Temp Pulse Resp BP Pulse Ox 97.8 F 102 H 18 117/71 98 12/10/16 17:58 12/10/16 17:58 12/10/16 17:58 12/10/16 17:58 12/10/16 09:00 Lungs clear Heart RRR Abd soft Ext edema CBC, BMP 12/10/16 06:00 12/10/16 06:00 IMP- [place]leman peristent azotemia, but not worsening bun and creat may have peaked r/o hepatorenal syndrome- less likely since she is non-oliguric May still be volume depleted intravascular since her peripheral edema is not very pronounced Plan- check urine electrolytes will eval FENa trial of normal saline at some point if urine indices are inconclusive increase present IVF from 50 cc to 75 cc
[2016-12-11] MEDS ORDERED: traMADol HCL 50 MG TABLET PO ONE (03:23)
[2016-12-11] MEDS: HEPARIN - 25,000 UNIT in SODIUM CHLORIDE 495 ML IV SCH (05:52)
[2016-12-11] MEDS: METHADONE 80 MG, METHADONE 30 MG PO SCH (05:52)
[2016-12-11] MEDS ORDERED: morphine CARPU-JECT 2 MG/1 ML DISP.SYRIN IVPUSH PRN (10:40)
[2016-12-11 11:12] LABS: BASOPHIL 0.7 % (0-2.0); EOSINOPHIL 0.8 % (0-4.5); MCH 25.7 pg (25.7-33.7); MCHC 31.2 g/dl (32.0-36.0); MEAN CELL VOLUME 82.3 fl (80-96); MEAN PLT VOLUME 7.4 fl (7.5-11.1); NEUTROPHILS 86.4 % (42.8-82.8); PLATELET COUNT 339 K/MM3 (134-434); RDW 16.7 % (11.6-15.6); WHITE BLOOD COUNT 20.7 K/mm3 (4.0-10.0)
[2016-12-11 11:28] LABS: INR 1.77 (0.82-1.09); PROTHROMBIN TIME (PATIENT) 19.7 SEC (9.98-11.88)
[2016-12-11] MEDS ORDERED: LORazepam 2 MG/ML SDV VIAL IVPUSH ONE ×2 (11:45→16:23)
[2016-12-11 11:53] LABS: ALBUMIN 1.6 g/dl (3.4-5.0); ANION GAP 17 (8-16); BILIRUBIN,DIRECT 5.8 mg/dL (0.0-0.2); CALCIUM 9.1 mg/dL (8.5-10.1); CO2 15 mmol/L (21-32); CREATININE 2.3 mg/dL (0.55-1.02); MAGNESIUM 2.8 mg/dL (1.8-2.4); PHOSPHOROUS 4.8 mg/dL (2.5-4.9); SGPT/ALT 314 U/L (12-78)
[2016-12-11 11:55] LABS: ALK PHOS 515 U/L (45-117); BILIRUBIN,TOTAL 6.8 mg/dL (0.2-1.0); TOT PROT 7.2 g/dl (6.4-8.2)
[2016-12-11 11:57] LABS: SGOT/AST 664 U/L (15-37)
[2016-12-11 11:59] LABS: GLUCOSE,RANDOM 42 mg/dL (74-106)
[2016-12-11] MEDS ORDERED: CEFOTAXIME SODIUM 500 MG VIAL (RESTRICTED TO ID) IVPB SCH (12:15)
[2016-12-11] MEDS ORDERED: morphine CARPU-JECT 4 MG/1 ML DISP.SYRIN IVPUSH ONE (12:26)
[2016-12-11] MEDS ORDERED: DEXTROSE 50%-WATER - 25 GM/50 ML VIAL IVPUSH ONE (12:27)
[2016-12-11] MEDS ORDERED: DEXTROSE 50%-WATER 50 ML DISP.SYRIN ONE (12:31)
--- NOTE | 2016-12-11 12:34 | PN ---
Progress Note (short form) - Note Progress Note: PULMONARY Denies shortness of breath but daughter states she is still short of breath. Denies abdominal pain. No fevers or chills. c/o poor appetite. Last Vital Signs Temp Pulse Resp BP Pulse Ox 97.2 F L 100 H 20 115/70 98 12/11/16 10:00 12/11/16 10:00 12/11/16 10:00 12/11/16 10:00 12/10/16 21:00 Gen: mildly tachypneic at rest Heart: tachycardic, regular Lung: decreased breath sounds right base Abd: hepatomegaly, nontender Ext: + edema CBC, BMP 12/11/16 10:55 12/11/16 10:55 Active Medications Cefotaxime Sodium (Claforan (Restricted To Id) -) 2 mg IVPB Q8H KEITH PRN Reason: Protocol Dextrose (D50w (Vial) -) 50 gm IVPUSH NOW ONE Stop: 12/11/16 12:28 Heparin Sodium (Porcine) (Heparin -) 1,000 unit IVPUSH PRN PRN PRN Reason: Heparin Last Admin: 12/07/16 09:00 Dose: 1,000 unit Heparin Sodium (Porcine) (Heparin -) 5,000 unit IVPUSH PRN PRN PRN Reason: Heparin Last Admin: 12/08/16 17:20 Dose: 5,000 unit Heparin Sodium (Porcine) 25, (000 unit/ Sodium Chloride) 500 mls @ 37.08 mls/ hr IV TITR KEITH; 1,854 UNIT/HR PRN Reason: Protocol Last Admin: 12/11/16 05:52 Dose: 46 mls/hr Sodium Chloride (Normal Saline -) 1,000 mls @ 75 mls/hr IV ASDIR KEITH Stop: 12/11/16 19:28 Last Admin: 12/11/16 04:05 Dose: 75 mls/hr Methadone HCl 80 mg/ Methadone (HCl 30 mg) 110 mg PO DAILY@06 KEITH Last Admin: 12/11/16 05:52 Dose: Not Given Morphine Sulfate (Morphine Injection -) 1 mg IVPUSH Q4H PRN PRN Reason: PAIN Last Admin: 12/11/16 11:45 Dose: 1 mg A/P Liver Mass/Hepatomegaly r/o PE Elevated R Hemidiaphragm from above Acute Kidney Injury Metabolic Acidosis Anemia - on empiric anticoagulation - V/Q scan - suspect diaphragmatic compression and metabolic acidosis contributing to dyspnea - monitor H/H - monitor urine output, creatinine
[2016-12-11] MEDS: DEXTROSE 50%-WATER - 25 GM/50 ML VIAL IVPUSH ONE ×2 (12:39→13:12)
[2016-12-11] MEDS ORDERED: PIPERACILLIN/TAZOB 3.375 GM/50 ML PRE-DOCKED IVPB SCH ×2 (13:45→18:00)
[2016-12-11] MEDS ORDERED: PIPERACILLIN/TAZOB 3.375 GM 3.375 GM in DEXTROSE 5%-WATER 100 ML IVPB SCH (14:15)
[2016-12-11] MEDS ORDERED: PIPERACILLIN/TAZOBACTAM 3.375 GM VIAL IVPB ONE (14:27)
[2016-12-11] MEDS ORDERED: DEXTROSE 5%-WATER 100 ML IVPB ONE (14:27)
[2016-12-11] MEDS ORDERED: PIPERACILLIN/TAZOB 3.375 GM 3.375 GM in DEXTROSE 5%-WATER 100 ML IVPB ONE (14:38)
[2016-12-11] MEDS ORDERED: DEXTROSE 5%-WATER - 1,000 ML with SODIUM BICARBONATE 8.4% - 150 MEQ IV SCH ×3 (15:30→16:45)
[2016-12-11] MEDS ORDERED: DEXTROSE 10%-WATER - 1,000 ML IV SCH (15:30)
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
--- NOTE | 2016-12-11 16:14 | PN ---
Progress Note, Physician Chief Complaint: Pt is lethargic, but responsive. Her sister is present. 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 Patient was recently admitted at [facility] from 11/25 - 11/27 for right sided pain. She had multiple CT scans (head, abdomen) where she was diagnosed with a liver mass. Upon liver mass finding, she was introduced to a physical plant manager/oncologist. She has called the office multiple times with no call back. She appears upset because she states she is more symptomatic. Patient also reports she has bilateral leg swelling, which she states is chronic since her bilateral knee replacement. She denies chest pain. She denies nausea, vomiting, diarrhea. She denies urinary complaints. PCP: Dr. Sven Chávez Surgeries: partial hysterectomy, bilateral knee replacement, multiple skin grafts (face, extremities) SHx: Current smoker (half a pack/day for 40 years) Allergies: none - Current Medication List Current Medications: Active Medications Heparin Sodium (Porcine) (Heparin -) 5,000 unit IVPUSH PRN PRN PRN Reason: Heparin Last Admin: 12/08/16 17:20 Dose: 5,000 unit Heparin Sodium (Porcine) 25, (000 unit/ Sodium Chloride) 500 mls @ 37.08 mls/ hr IV TITR KEITH; 1,854 UNIT/HR PRN Reason: Protocol Last Admin: 12/11/16 05:52 Dose: 46 mls/hr Dextrose (D10w -) 1,000 mls @ 42 mls/hr IV ASDIR KEITH Piperacillin Sod/Tazobactam (Sod 3.375 gm/ Dextrose) 50 mls @ 100 mls/hr IVPB Q8H-IV KEITH Sodium Bicarbonate 150 meq/ (Dextrose) 1,150 mls @ 125 mls/hr IV .Q10H KEITH Methadone HCl 80 mg/ Methadone (HCl 30 mg) 110 mg PO DAILY@06 KEITH Last Admin: 12/11/16 05:52 Dose: Not Given Morphine Sulfate (Morphine Injection -) 1 mg IVPUSH Q4H PRN PRN Reason: PAIN Last Admin: 12/11/16 11:45 Dose: 1 mg - Objective Vital Signs: Vital Signs Temperature 97.2 F L 12/11/16 10:00 Pulse Rate 100 H 12/11/16 10:00 Respiratory Rate 20 12/11/16 10:00 Blood Pressure 115/70 12/11/16 10:00 O2 Sat by Pulse Oximetry (%) 98 12/11/16 09:00 Constitutional: Yes: Calm Eyes: Yes: WNL HENT: Yes: WNL Neck: Yes: WNL Cardiovascular: Yes: Tachycardia, S1, S2 Respiratory: Yes: Regular Gastrointestinal: Yes: Distention. No: Tenderness ...Rectal Exam: Yes: Deferred Genitourinary: No: Anuria Musculoskeletal: Yes: Joint Swelling, Muscle Weakness Extremities: Yes: Cool Edema: Yes Edema: LLE: 2+, RLE: 2+ Peripheral Pulses WNL: No Peripheral Pulses: Left Doralis Pedis: 1+, Right Dorsalis Pedis: 1+ Neurological: Yes: Weakness Psychiatric: Yes: Other Labs: CBC, BMP 12/11/16 10:55 12/11/16 10:55 INR, PTT INR 1.77 (0.82-1.09) H 12/11/16 10:55 Problem List - Problems (1) Abnormal liver function tests Assessment/Plan: liver dysfunction. Hypoglycemic; hypokalemic; ? hepatic encepalopathy. More lethargic. Requires transfer to tertiary center. Code(s): R79.89 - OTHER SPECIFIED ABNORMAL FINDINGS OF BLOOD CHEMISTRY (2) Anemia Assessment/Plan: Received PRBCs (one unit); f/u HB, anemia workup. On IV heparin for presumed PE; future decision on PO agent to be used. Code(s): D64.9 - ANEMIA, UNSPECIFIED Qualifiers: Qualified Code(s): D64.9 - Anemia, unspecified (3) Edema of both legs Code(s): R60.0 - LOCALIZED EDEMA (4) Exertional dyspnea Code(s): R06.09 - OTHER FORMS OF DYSPNEA (5) Liver mass, right lobe Code(s): R16.0 - HEPATOMEGALY, NOT ELSEWHERE CLASSIFIED (6) Renal insufficiency Code(s): N28.9 - DISORDER OF KIDNEY AND URETER, UNSPECIFIED (7) Hypertension Code(s): I10 - ESSENTIAL (PRIMARY) HYPERTENSION (8) Lower abdominal pain Code(s): R10.30 - LOWER ABDOMINAL PAIN, UNSPECIFIED (9) Abnormal echocardiogram Assessment/Plan: BAM (done to assess abnormalities noted on TTE): normal LVEF; no pulmonary valve abnormality; no vegetations; small pericardial effusion; RVOT abnormality is an artifact. Code(s): R93.1 - ABNORMAL FINDINGS ON DX IMAGING OF HEART AND COR CIRC
[2016-12-11] MEDS ORDERED: HEPARIN NA (PORCINE) 5,000 UNITS/ML 1ML VIAL IVPUSH PRN ×4 (16:23→16:33)
[2016-12-11] MEDS ORDERED: HEPARIN - 25,000 UNIT in SODIUM CHLORIDE 495 ML IV SCH (16:23)
--- NOTE | 2016-12-11 16:24 | PN ---
Progress Note (short form) - Note Progress Note: Liver Mass Transaminitis COLEMAN/ R/O hepatorenal Severe Hypoalbuminemia Current Medications mild anasarca transferred to MICU- somnolent, hypoglycemia, r/o new hepatic encephalopathy Current Medications Heparin Sodium (Porcine) (Heparin -) 5,000 unit IVPUSH PRN PRN PRN Reason: Heparin Last Admin: 12/08/16 17:20 Dose: 5,000 unit Heparin Sodium (Porcine) 25, (000 unit/ Sodium Chloride) 500 mls @ 37.08 mls/ hr IV TITR KEITH; 1,854 UNIT/HR PRN Reason: Protocol Last Admin: 12/11/16 05:52 Dose: 46 mls/hr Dextrose (D10w -) 1,000 mls @ 42 mls/hr IV ASDIR KEITH Piperacillin Sod/Tazobactam (Sod 3.375 gm/ Dextrose) 50 mls @ 100 mls/hr IVPB Q8H-IV KEITH Sodium Bicarbonate 150 meq/ (Dextrose) 1,150 mls @ 125 mls/hr IV .Q10H KEITH Methadone HCl 80 mg/ Methadone (HCl 30 mg) 110 mg PO DAILY@06 KEITH Last Admin: 12/11/16 05:52 Dose: Not Given Morphine Sulfate (Morphine Injection -) 1 mg IVPUSH Q4H PRN PRN Reason: PAIN Last Admin: 12/11/16 11:45 Dose: 1 mg Last Vital Signs Temp Pulse Resp BP Pulse Ox 97.2 F L 100 H 20 115/70 98 12/11/16 10:00 12/11/16 10:00 12/11/16 10:00 12/11/16 10:00 12/11/16 09:00 Somnolent but responsive Lungs clear Heart RRR Abd distended, dull to percussion ( no ascites on abd sono, major component is liver mass) Ext 3+ edema IMP- Hypoglycemia / liver failue coleman peristent azotemia, but not worsening today- r/o oliguria bun and creat may have peaked r/o hepatorenal syndrome- less likely since she is non-oliguric May still be volume depleted intravascular since her peripheral edema is not very pronounced she gained 20 lbs from admission, my be 3rd spacing Plan- strict I and o landrum catheter to monitor urine output will add some albumin if urine output is decreasing
--- NOTE | 2016-12-11 16:36 | PN ---
Progress Note (short form) - Note Progress Note: GI NOte: [facility] has accepted Nedra for transfer and is looking for an ICU bed. The accepting physician is Dr. Adler . I informed Nedra's sister Chanel who is at the bedside of the grim prognosis and asked her to inform Nedra's son. Discussed with Lucía Shaw NP, Dr. Reynolds and Dr. Amaro.
[2016-12-11] MEDS ORDERED: SODIUM BICARBONATE 8.4% - 150 MEQ in DEXTROSE 5%-WATER - 1,000 ML IV SCH ×3 (16:44→16:46)
[2016-12-11] MEDS ORDERED: SODIUM BICARBONATE 8.4% - 150 MEQ in DEXTROSE 5%-WATER - 1,000 ML IVPB SCH (16:45)
--- NOTE | 2016-12-11 16:56 | DS ---
Physical Exam: SUBJECTIVE: Patient seen and examined at bedside. OBJECTIVE: Vital Signs Period Temp Pulse Resp BP Sys/Crain Pulse Ox Last 24 Hr 97.2 F-97.9 F 100-107 16-20 101-139/61-85 98-98 PHYSICAL EXAM GENERAL/NEURO: The patient is A&Ox2. In moderate distress secondary to abdominal pain. Lethargic alternating with complaining of pain. LUNGS: Diminished breath sounds RLL. No wheezes, no crackles, no accessory muscle use. HEART: Regular rate and rhythm, S1, S2 without murmur, rub or gallop. ABDOMEN: Severely distended, tender, hypoactive bowel sounds EXTREMITIES: 1-2+ bilateral lower extremity edema Laboratory Tests 12/05/16 12/05/16 12/05/16 21:57 21:57 21:57 WBC 16.2 H D RBC 3.05 L D Hgb 8.0 L D Hct 24.7 L D MCV 80.9 MCH 26.2 MCHC 32.4 RDW 15.8 H Plt Count 405 D MPV 8.3 Total Counted Neutrophils % 83.0 H D Neutrophils % (Manual) Band Neuts % (Manual) Lymphocytes % 6.5 L Lymphocytes % (Manual) Monocytes % 9.6 Monocytes % (Manual) Eosinophils % 0.4 Eosinophils % (Manual) Basophils % 0.5 Myelocytes % (Man) Hypochromia Platelet Estimate Platelet Comment Polychromasia Anisocytosis Microcytosis Tear Drop Cells ESR INR PTT (Actin FS) D-Dimer Anticoagulation Therapy Puncture Site ABG pH ABG pCO2 at Pt Temp ABG pO2 at Pt Temp ABG HCO3 ABG O2 Sat (Measured) ABG O2 Content ABG Base Excess Simon Test O2 Delivery Device Oxygen Flow Rate Vent Mode Vent Rate Mechanical Rate PEEP Pressure Support Vent Sodium 133 L Potassium 5.3 H D Chloride 100 Carbon Dioxide 20 L D Anion Gap 13 BUN 29 H D Creatinine 1.5 H D Creat Clearance w eGFR 35.30 POC Glucometer Random Glucose 94 Serum Osmolality Lactic Acid Uric Acid Calcium 8.7 Phosphorus Magnesium Iron TIBC Iron Saturation Transferrin Ferritin Total Bilirubin 1.8 H D Direct Bilirubin AST 266 H D ALT 178 H D Alkaline Phosphatase 440 H D Ammonia Creatine Kinase 52 Troponin I < 0.02 C-Reactive Protein B-Natriuretic Peptide Total Protein 7.6 Albumin 1.9 L D Tumor Marker AFP Urine Color Urine Appearance Urine pH Urine Protein Urine Glucose (UA) Urine Ketones Urine Blood Urine Nitrite Urine Bilirubin Urine Urobilinogen Ur Leukocyte Esterase Urine RBC Urine WBC Ur Epithelial Cells Urine Bacteria Hyaline Casts Urine Mucus Ur Random Sodium Ur Random Potassium Ur Random Chloride Ur Random Urea Nitrogn Urine Creatinine Stool Occult Blood Random Vancomycin Opiates Screen Methadone Screen Barbiturate Screen Phencyclidine Screen Ur Amphetamines Screen MDMA (Ecstasy) Screen Benzodiazepines Screen Cocaine Screen U Marijuana (THC) Screen HIV 1&2 Antibody Screen HIV P24 Antigen Blood Type Antibody Screen Crossmatch Spec Expiration Date 12/05/16 12/05/16 12/06/16 21:57 21:57 01:00 WBC RBC Hgb Hct MCV MCH MCHC RDW Plt Count MPV Total Counted Neutrophils % Neutrophils % (Manual) Band Neuts % (Manual) Lymphocytes % Lymphocytes % (Manual) Monocytes % Monocytes % (Manual) Eosinophils % Eosinophils % (Manual) Basophils % Myelocytes % (Man) Hypochromia Platelet Estimate Platelet Comment Polychromasia Anisocytosis Microcytosis Tear Drop Cells ESR INR 1.49 H D PTT (Actin FS) D-Dimer Anticoagulation Therapy Puncture Site ABG pH ABG pCO2 at Pt Temp ABG pO2 at Pt Temp ABG HCO3 ABG O2 Sat (Measured) ABG O2 Content ABG Base Excess Simon Test O2 Delivery Device Oxygen Flow Rate Vent Mode Vent Rate Mechanical Rate PEEP Pressure Support Vent Sodium Potassium Chloride Carbon Dioxide Anion Gap BUN Creatinine Creat Clearance w eGFR POC Glucometer Random Glucose Serum Osmolality Lactic Acid Uric Acid Calcium Phosphorus Magnesium Iron TIBC Iron Saturation Transferrin Ferritin Total Bilirubin Direct Bilirubin AST ALT Alkaline Phosphatase Ammonia Creatine Kinase Troponin I C-Reactive Protein B-Natriuretic Peptide 1050.40 H Total Protein Albumin Tumor Marker AFP Urine Color Adela Urine Appearance Cloudy Urine pH 5.0 Urine Protein 1+ H Urine Glucose (UA) Negative Urine Ketones Negative Urine Blood Negative Urine Nitrite Negative Urine Bilirubin 2.0 Urine Urobilinogen 4.0 e.u/dl H Ur Leukocyte Esterase Negative Urine RBC 1 Urine WBC 3 Ur Epithelial Cells Moderate Urine Bacteria Few Hyaline Casts 20 Urine Mucus Rare Ur Random Sodium Ur Random Potassium Ur Random Chloride Ur Random Urea Nitrogn Urine Creatinine Stool Occult Blood Random Vancomycin Opiates Screen Methadone Screen Barbiturate Screen Phencyclidine Screen Ur Amphetamines Screen MDMA (Ecstasy) Screen Benzodiazepines Screen Cocaine Screen U Marijuana (THC) Screen HIV 1&2 Antibody Screen HIV P24 Antigen Blood Type Antibody Screen Crossmatch Spec Expiration Date 12/06/16 12/06/16 12/06/16 01:35 06:05 06:05 WBC 17.3 H RBC 3.03 L Hgb 7.8 L Hct 24.8 L MCV 82.0 MCH 25.6 L MCHC 31.2 L RDW 15.7 H Plt Count 397 MPV 8.4 Total Counted Neutrophils % 82.1 Neutrophils % (Manual) Band Neuts % (Manual) Lymphocytes % 7.2 L Lymphocytes % (Manual) Monocytes % 9.4 Monocytes % (Manual) Eosinophils % 0.9 D Eosinophils % (Manual) Basophils % 0.4 Myelocytes % (Man) Hypochromia Platelet Estimate Platelet Comment Polychromasia Anisocytosis Microcytosis Tear Drop Cells ESR INR PTT (Actin FS) D-Dimer Anticoagulation Therapy Puncture Site ABG pH ABG pCO2 at Pt Temp ABG pO2 at Pt Temp ABG HCO3 ABG O2 Sat (Measured) ABG O2 Content ABG Base Excess Simon Test O2 Delivery Device Oxygen Flow Rate Vent Mode Vent Rate Mechanical Rate PEEP Pressure Support Vent Sodium 132 L Potassium 5.3 H Chloride 97 L Carbon Dioxide 22 Anion Gap 13 BUN 36 H D Creatinine 1.8 H Creat Clearance w eGFR 28.60 POC Glucometer Random Glucose 75 D Serum Osmolality Lactic Acid Uric Acid Calcium 8.8 Phosphorus 4.8 D Magnesium 2.1 Iron TIBC Iron Saturation Transferrin Ferritin Total Bilirubin 2.1 H Direct Bilirubin AST 287 H ALT 181 H Alkaline Phosphatase 439 H Ammonia Creatine Kinase 93 Troponin I < 0.02 C-Reactive Protein B-Natriuretic Peptide Total Protein 7.7 Albumin 2.0 L Tumor Marker AFP Urine Color Urine Appearance Urine pH Urine Protein Urine Glucose (UA) Urine Ketones Urine Blood Urine Nitrite Urine Bilirubin Urine Urobilinogen Ur Leukocyte Esterase Urine RBC Urine WBC Ur Epithelial Cells Urine Bacteria Hyaline Casts Urine Mucus Ur Random Sodium Ur Random Potassium Ur Random Chloride Ur Random Urea Nitrogn Urine Creatinine Stool Occult Blood Negative Random Vancomycin Opiates Screen Methadone Screen Barbiturate Screen Phencyclidine Screen Ur Amphetamines Screen MDMA (Ecstasy) Screen Benzodiazepines Screen Cocaine Screen U Marijuana (THC) Screen HIV 1&2 Antibody Screen HIV P24 Antigen Blood Type Antibody Screen Crossmatch Spec Expiration Date 12/06/16 12/06/16 12/06/16 11:05 11:55 14:45 WBC RBC Hgb Hct MCV MCH MCHC RDW Plt Count MPV Total Counted Neutrophils % Neutrophils % (Manual) Band Neuts % (Manual) Lymphocytes % Lymphocytes % (Manual) Monocytes % Monocytes % (Manual) Eosinophils % Eosinophils % (Manual) Basophils % Myelocytes % (Man) Hypochromia Platelet Estimate Platelet Comment Polychromasia Anisocytosis Microcytosis Tear Drop Cells ESR INR PTT (Actin FS) 31.1 D-Dimer 4134 H Anticoagulation Therapy Puncture Site ABG pH ABG pCO2 at Pt Temp ABG pO2 at Pt Temp ABG HCO3 ABG O2 Sat (Measured) ABG O2 Content ABG Base Excess Simon Test O2 Delivery Device Oxygen Flow Rate Vent Mode Vent Rate Mechanical Rate PEEP Pressure Support Vent Sodium Potassium Chloride Carbon Dioxide Anion Gap BUN Creatinine Creat Clearance w eGFR POC Glucometer Random Glucose Serum Osmolality Lactic Acid Uric Acid Calcium Phosphorus Magnesium Iron TIBC Iron Saturation Transferrin Ferritin Total Bilirubin Direct Bilirubin AST ALT Alkaline Phosphatase Ammonia Creatine Kinase 57 Troponin I < 0.02 C-Reactive Protein B-Natriuretic Peptide Total Protein Albumin Tumor Marker AFP Urine Color Urine Appearance Urine pH Urine Protein Urine Glucose (UA) Urine Ketones Urine Blood Urine Nitrite Urine Bilirubin Urine Urobilinogen Ur Leukocyte Esterase Urine RBC Urine WBC Ur Epithelial Cells Urine Bacteria Hyaline Casts Urine Mucus Ur Random Sodium Ur Random Potassium Ur Random Chloride Ur Random Urea Nitrogn Urine Creatinine Stool Occult Blood Random Vancomycin Opiates Screen Methadone Screen Barbiturate Screen Phencyclidine Screen Ur Amphetamines Screen MDMA (Ecstasy) Screen Benzodiazepines Screen Cocaine Screen U Marijuana (THC) Screen HIV 1&2 Antibody Screen HIV P24 Antigen Blood Type Antibody Screen Crossmatch Spec Expiration Date 12/06/16 12/06/16 12/06/16 15:30 20:00 20:00 WBC RBC Hgb Hct MCV MCH MCHC RDW Plt Count MPV Total Counted Neutrophils % Neutrophils % (Manual) Band Neuts % (Manual) Lymphocytes % Lymphocytes % (Manual) Monocytes % Monocytes % (Manual) Eosinophils % Eosinophils % (Manual) Basophils % Myelocytes % (Man) Hypochromia Platelet Estimate Platelet Comment Polychromasia Anisocytosis Microcytosis Tear Drop Cells ESR INR PTT (Actin FS) D-Dimer Anticoagulation Therapy Puncture Site ABG pH ABG pCO2 at Pt Temp ABG pO2 at Pt Temp ABG HCO3 ABG O2 Sat (Measured) ABG O2 Content ABG Base Excess Simon Test O2 Delivery Device Oxygen Flow Rate Vent Mode Vent Rate Mechanical Rate PEEP Pressure Support Vent Sodium Potassium Chloride Carbon Dioxide Anion Gap BUN Creatinine Creat Clearance w eGFR POC Glucometer Random Glucose Serum Osmolality Lactic Acid Uric Acid Calcium Phosphorus Magnesium Iron TIBC Iron Saturation Transferrin Ferritin Total Bilirubin Direct Bilirubin AST ALT Alkaline Phosphatase Ammonia Creatine Kinase Troponin I C-Reactive Protein B-Natriuretic Peptide Total Protein Albumin Tumor Marker AFP Urine Color Urine Appearance Urine pH Urine Protein Urine Glucose (UA) Urine Ketones Urine Blood Urine Nitrite Urine Bilirubin Urine Urobilinogen Ur Leukocyte Esterase Urine RBC Urine WBC Ur Epithelial Cells Urine Bacteria Hyaline Casts Urine Mucus Ur Random Sodium 51 Ur Random Potassium 38.5 Ur Random Chloride 57 Ur Random Urea Nitrogn Urine Creatinine 100.0 Stool Occult Blood Random Vancomycin Opiates Screen Methadone Screen Barbiturate Screen Phencyclidine Screen Ur Amphetamines Screen MDMA (Ecstasy) Screen Benzodiazepines Screen Cocaine Screen U Marijuana (THC) Screen HIV 1&2 Antibody Screen Negative HIV P24 Antigen Negative Blood Type Antibody Screen Crossmatch Spec Expiration Date 12/06/16 12/07/16 12/07/16 20:00 00:15 12:00 WBC RBC Hgb Hct MCV MCH MCHC RDW Plt Count MPV Total Counted Neutrophils % Neutrophils % (Manual) Band Neuts % (Manual) Lymphocytes % Lymphocytes % (Manual) Monocytes % Monocytes % (Manual) Eosinophils % Eosinophils % (Manual) Basophils % Myelocytes % (Man) Hypochromia Platelet Estimate Platelet Comment Polychromasia Anisocytosis Microcytosis Tear Drop Cells ESR INR PTT (Actin FS) 47.9 H D D-Dimer Anticoagulation Therapy Puncture Site ABG pH ABG pCO2 at Pt Temp ABG pO2 at Pt Temp ABG HCO3 ABG O2 Sat (Measured) ABG O2 Content ABG Base Excess Simon Test O2 Delivery Device Oxygen Flow Rate Vent Mode Vent Rate Mechanical Rate PEEP Pressure Support Vent Sodium Potassium Chloride Carbon Dioxide Anion Gap BUN Creatinine Creat Clearance w eGFR POC Glucometer Random Glucose Serum Osmolality Lactic Acid Uric Acid Calcium Phosphorus Magnesium Iron TIBC Iron Saturation Transferrin Ferritin Total Bilirubin Direct Bilirubin AST ALT Alkaline Phosphatase Ammonia Creatine Kinase Troponin I C-Reactive Protein B-Natriuretic Peptide Total Protein Albumin Tumor Marker AFP Urine Color Urine Appearance Urine pH Urine Protein Urine Glucose (UA) Urine Ketones Urine Blood Urine Nitrite Urine Bilirubin Urine Urobilinogen Ur Leukocyte Esterase Urine RBC Urine WBC Ur Epithelial Cells Urine Bacteria Hyaline Casts Urine Mucus Ur Random Sodium Ur Random Potassium Ur Random Chloride Ur Random Urea Nitrogn 472 Urine Creatinine Stool Occult Blood Random Vancomycin 10.380 Opiates Screen Methadone Screen Barbiturate Screen Phencyclidine Screen Ur Amphetamines Screen MDMA (Ecstasy) Screen Benzodiazepines Screen Cocaine Screen U Marijuana (THC) Screen HIV 1&2 Antibody Screen HIV P24 Antigen Blood Type Antibody Screen Crossmatch Spec Expiration Date 12/07/16 12/07/16 12/07/16 12:00 12:00 12:00 WBC 17.7 H RBC 2.98 L Hgb 7.8 L Hct 24.0 L MCV 80.4 MCH 26.0 MCHC 32.3 RDW 16.1 H Plt Count 359 MPV 7.8 Total Counted Neutrophils % 87.0 H Neutrophils % (Manual) Band Neuts % (Manual) Lymphocytes % 4.3 L D Lymphocytes % (Manual) Monocytes % 7.5 Monocytes % (Manual) Eosinophils % 0.5 Eosinophils % (Manual) Basophils % 0.7 Myelocytes % (Man) Hypochromia Platelet Estimate Platelet Comment Polychromasia Anisocytosis Microcytosis Tear Drop Cells ESR INR PTT (Actin FS) D-Dimer Anticoagulation Therapy Puncture Site ABG pH ABG pCO2 at Pt Temp ABG pO2 at Pt Temp ABG HCO3 ABG O2 Sat (Measured) ABG O2 Content ABG Base Excess Simon Test O2 Delivery Device Oxygen Flow Rate Vent Mode Vent Rate Mechanical Rate PEEP Pressure Support Vent Sodium 133 L Potassium 5.1 Chloride 98 Carbon Dioxide 20 L Anion Gap 15 BUN 47 H D Creatinine 1.9 H Creat Clearance w eGFR 26.87 POC Glucometer Random Glucose 65 L Serum Osmolality Lactic Acid Uric Acid Calcium 8.6 Phosphorus Magnesium Iron 16 L TIBC 165 L Iron Saturation 10 L Transferrin 125 L Ferritin 2342.05 H Total Bilirubin 3.3 H D Direct Bilirubin AST 400 H D ALT 190 H Alkaline Phosphatase 443 H Ammonia Creatine Kinase Troponin I C-Reactive Protein B-Natriuretic Peptide Total Protein 7.4 Albumin 1.9 L Tumor Marker AFP Urine Color Urine Appearance Urine pH Urine Protein Urine Glucose (UA) Urine Ketones Urine Blood Urine Nitrite Urine Bilirubin Urine Urobilinogen Ur Leukocyte Esterase Urine RBC Urine WBC Ur Epithelial Cells Urine Bacteria Hyaline Casts Urine Mucus Ur Random Sodium Ur Random Potassium Ur Random Chloride Ur Random Urea Nitrogn Urine Creatinine Stool Occult Blood Random Vancomycin Opiates Screen Methadone Screen Barbiturate Screen Phencyclidine Screen Ur Amphetamines Screen MDMA (Ecstasy) Screen Benzodiazepines Screen Cocaine Screen U Marijuana (THC) Screen HIV 1&2 Antibody Screen HIV P24 Antigen Blood Type Antibody Screen Crossmatch Spec Expiration Date 12/07/16 12/08/16 12/08/16 12:00 06:10 06:10 WBC RBC Hgb Hct MCV MCH MCHC RDW Plt Count MPV Total Counted Neutrophils % Neutrophils % (Manual) Band Neuts % (Manual) Lymphocytes % Lymphocytes % (Manual) Monocytes % Monocytes % (Manual) Eosinophils % Eosinophils % (Manual) Basophils % Myelocytes % (Man) Hypochromia Platelet Estimate Platelet Comment Polychromasia Anisocytosis Microcytosis Tear Drop Cells ESR INR PTT (Actin FS) 60.9 H 44.6 H D-Dimer Anticoagulation Therapy Puncture Site ABG pH ABG pCO2 at Pt Temp ABG pO2 at Pt Temp ABG HCO3 ABG O2 Sat (Measured) ABG O2 Content ABG Base Excess Simon Test O2 Delivery Device Oxygen Flow Rate Vent Mode Vent Rate Mechanical Rate PEEP Pressure Support Vent Sodium Potassium Chloride Carbon Dioxide Anion Gap BUN Creatinine Creat Clearance w eGFR POC Glucometer Random Glucose Serum Osmolality Lactic Acid Uric Acid Calcium Phosphorus Magnesium Iron TIBC Iron Saturation Transferrin Ferritin Total Bilirubin Direct Bilirubin AST ALT Alkaline Phosphatase Ammonia Creatine Kinase Troponin I C-Reactive Protein B-Natriuretic Peptide Total Protein Albumin Tumor Marker AFP Urine Color Urine Appearance Urine pH Urine Protein Urine Glucose (UA) Urine Ketones Urine Blood Urine Nitrite Urine Bilirubin Urine Urobilinogen Ur Leukocyte Esterase Urine RBC Urine WBC Ur Epithelial Cells Urine Bacteria Hyaline Casts Urine Mucus Ur Random Sodium Ur Random Potassium Ur Random Chloride Ur Random Urea Nitrogn Urine Creatinine Stool Occult Blood Random Vancomycin 13.261 Opiates Screen Methadone Screen Barbiturate Screen Phencyclidine Screen Ur Amphetamines Screen MDMA (Ecstasy) Screen Benzodiazepines Screen Cocaine Screen U Marijuana (THC) Screen HIV 1&2 Antibody Screen HIV P24 Antigen Blood Type Antibody Screen Crossmatch Spec Expiration Date 12/08/16 12/08/16 12/08/16 06:10 06:10 06:10 WBC 15.7 H RBC 2.88 L Hgb 7.4 L Hct 23.3 L MCV 81.0 MCH 25.8 MCHC 31.9 L RDW 15.8 H Plt Count 365 MPV 7.9 Total Counted Neutrophils % 85.0 H Neutrophils % (Manual) Band Neuts % (Manual) Lymphocytes % 5.3 L D Lymphocytes % (Manual) Monocytes % 8.2 Monocytes % (Manual) Eosinophils % 0.8 Eosinophils % (Manual) Basophils % 0.7 Myelocytes % (Man) Hypochromia Platelet Estimate Platelet Comment Polychromasia Anisocytosis Microcytosis Tear Drop Cells ESR INR 1.62 H PTT (Actin FS) D-Dimer Anticoagulation Therapy Puncture Site ABG pH ABG pCO2 at Pt Temp ABG pO2 at Pt Temp ABG HCO3 ABG O2 Sat (Measured) ABG O2 Content ABG Base Excess Simon Test O2 Delivery Device Oxygen Flow Rate Vent Mode Vent Rate Mechanical Rate PEEP Pressure Support Vent Sodium Potassium Chloride Carbon Dioxide Anion Gap BUN Creatinine Creat Clearance w eGFR POC Glucometer Random Glucose Serum Osmolality Lactic Acid Uric Acid Calcium Phosphorus Magnesium Iron TIBC Iron Saturation Transferrin Ferritin Total Bilirubin Direct Bilirubin AST ALT Alkaline Phosphatase Ammonia Creatine Kinase Troponin I C-Reactive Protein B-Natriuretic Peptide Total Protein Albumin Tumor Marker AFP 13.5 H Urine Color Urine Appearance Urine pH Urine Protein Urine Glucose (UA) Urine Ketones Urine Blood Urine Nitrite Urine Bilirubin Urine Urobilinogen Ur Leukocyte Esterase Urine RBC Urine WBC Ur Epithelial Cells Urine Bacteria Hyaline Casts Urine Mucus Ur Random Sodium Ur Random Potassium Ur Random Chloride Ur Random Urea Nitrogn Urine Creatinine Stool Occult Blood Random Vancomycin Opiates Screen Methadone Screen Barbiturate Screen Phencyclidine Screen Ur Amphetamines Screen MDMA (Ecstasy) Screen Benzodiazepines Screen Cocaine Screen U Marijuana (THC) Screen HIV 1&2 Antibody Screen HIV P24 Antigen Blood Type Antibody Screen Crossmatch Spec Expiration Date 12/08/16 12/08/16 12/08/16 06:10 06:10 15:15 WBC RBC Hgb Hct MCV MCH MCHC RDW Plt Count MPV Total Counted Neutrophils % Neutrophils % (Manual) Band Neuts % (Manual) Lymphocytes % Lymphocytes % (Manual) Monocytes % Monocytes % (Manual) Eosinophils % Eosinophils % (Manual) Basophils % Myelocytes % (Man) Hypochromia Platelet Estimate Platelet Comment Polychromasia Anisocytosis Microcytosis Tear Drop Cells ESR INR PTT (Actin FS) 39.5 H D-Dimer Anticoagulation Therapy Puncture Site ABG pH ABG pCO2 at Pt Temp ABG pO2 at Pt Temp ABG HCO3 ABG O2 Sat (Measured) ABG O2 Content ABG Base Excess Simon Test O2 Delivery Device Oxygen Flow Rate Vent Mode Vent Rate Mechanical Rate PEEP Pressure Support Vent Sodium 133 L Potassium 4.8 Chloride 102 Carbon Dioxide 20 L Anion Gap 11 BUN 52 H Creatinine 1.9 H Creat Clearance w eGFR 26.87 POC Glucometer Random Glucose 76 Serum Osmolality 297 Lactic Acid Uric Acid Calcium 8.2 L Phosphorus Magnesium Iron TIBC Iron Saturation Transferrin Ferritin Total Bilirubin 3.5 H Direct Bilirubin AST 617 H D ALT 234 H D Alkaline Phosphatase 466 H Ammonia Creatine Kinase Troponin I C-Reactive Protein 25.8 H Cancelled B-Natriuretic Peptide Total Protein 7.1 Albumin 1.6 L Tumor Marker AFP Urine Color Urine Appearance Urine pH Urine Protein Urine Glucose (UA) Urine Ketones Urine Blood Urine Nitrite Urine Bilirubin Urine Urobilinogen Ur Leukocyte Esterase Urine RBC Urine WBC Ur Epithelial Cells Urine Bacteria Hyaline Casts Urine Mucus Ur Random Sodium Ur Random Potassium Ur Random Chloride Ur Random Urea Nitrogn Urine Creatinine Stool Occult Blood Random Vancomycin Opiates Screen Methadone Screen Barbiturate Screen Phencyclidine Screen Ur Amphetamines Screen MDMA (Ecstasy) Screen Benzodiazepines Screen Cocaine Screen U Marijuana (THC) Screen HIV 1&2 Antibody Screen HIV P24 Antigen Blood Type Antibody Screen Crossmatch Spec Expiration Date 12/09/16 12/09/16 12/09/16 03:20 08:30 08:30 WBC 18.6 H RBC 2.74 L Hgb 6.9 L* Hct 22.1 L MCV 81.0 MCH 25.4 L MCHC 31.3 L RDW 16.4 H Plt Count 343 MPV 7.8 Total Counted 100 Neutrophils % Y Neutrophils % (Manual) 76 Band Neuts % (Manual) 11 H Lymphocytes % Y Lymphocytes % (Manual) 6 L Monocytes % Monocytes % (Manual) 6 Eosinophils % Eosinophils % (Manual) 1 Basophils % Myelocytes % (Man) Hypochromia 1+ Platelet Estimate Platelet Comment Polychromasia 1+ Anisocytosis 1+ Microcytosis 1+ Tear Drop Cells 1+ ESR > 130 H INR PTT (Actin FS) 54.4 H D D-Dimer Anticoagulation Therapy Puncture Site ABG pH ABG pCO2 at Pt Temp ABG pO2 at Pt Temp ABG HCO3 ABG O2 Sat (Measured) ABG O2 Content ABG Base Excess Simon Test O2 Delivery Device Oxygen Flow Rate Vent Mode Vent Rate Mechanical Rate PEEP Pressure Support Vent Sodium Potassium Chloride Carbon Dioxide Anion Gap BUN Creatinine Creat Clearance w eGFR POC Glucometer Random Glucose Serum Osmolality Lactic Acid Uric Acid Calcium Phosphorus Magnesium Iron TIBC Iron Saturation Transferrin Ferritin Total Bilirubin Direct Bilirubin AST ALT Alkaline Phosphatase Ammonia Creatine Kinase Troponin I C-Reactive Protein B-Natriuretic Peptide Total Protein Albumin Tumor Marker AFP Urine Color Urine Appearance Urine pH Urine Protein Urine Glucose (UA) Urine Ketones Urine Blood Urine Nitrite Urine Bilirubin Urine Urobilinogen Ur Leukocyte Esterase Urine RBC Urine WBC Ur Epithelial Cells Urine Bacteria Hyaline Casts Urine Mucus Ur Random Sodium Ur Random Potassium Ur Random Chloride Ur Random Urea Nitrogn Urine Creatinine Stool Occult Blood Random Vancomycin Opiates Screen Methadone Screen Barbiturate Screen Phencyclidine Screen Ur Amphetamines Screen MDMA (Ecstasy) Screen Benzodiazepines Screen Cocaine Screen U Marijuana (THC) Screen HIV 1&2 Antibody Screen HIV P24 Antigen Blood Type Antibody Screen Crossmatch Spec Expiration Date 12/09/16 12/09/16 12/09/16 08:30 08:55 08:55 WBC RBC Hgb Hct MCV MCH MCHC RDW Plt Count MPV Total Counted Neutrophils % Neutrophils % (Manual) Band Neuts % (Manual) Lymphocytes % Lymphocytes % (Manual) Monocytes % Monocytes % (Manual) Eosinophils % Eosinophils % (Manual) Basophils % Myelocytes % (Man) Hypochromia Platelet Estimate Platelet Comment Polychromasia Anisocytosis Microcytosis Tear Drop Cells ESR INR PTT (Actin FS) D-Dimer Anticoagulation Therapy Puncture Site ABG pH ABG pCO2 at Pt Temp ABG pO2 at Pt Temp ABG HCO3 ABG O2 Sat (Measured) ABG O2 Content ABG Base Excess Simon Test O2 Delivery Device Oxygen Flow Rate Vent Mode Vent Rate Mechanical Rate PEEP Pressure Support Vent Sodium 136 Potassium 4.9 Chloride 103 Carbon Dioxide 16 L Anion Gap 17 H BUN 61 H Creatinine 2.3 H D Creat Clearance w eGFR 21.56 POC Glucometer Random Glucose 88 Serum Osmolality Lactic Acid Uric Acid Calcium 8.7 Phosphorus Magnesium 2.5 H Iron TIBC Iron Saturation Transferrin Ferritin Total Bilirubin 4.0 H Direct Bilirubin AST 767 H D ALT 294 H D Alkaline Phosphatase 536 H Ammonia Creatine Kinase Troponin I C-Reactive Protein B-Natriuretic Peptide Total Protein 7.1 Albumin 1.6 L Tumor Marker AFP Urine Color Urine Appearance Urine pH Urine Protein Urine Glucose (UA) Urine Ketones Urine Blood Urine Nitrite Urine Bilirubin Urine Urobilinogen Ur Leukocyte Esterase Urine RBC Urine WBC Ur Epithelial Cells Urine Bacteria Hyaline Casts Urine Mucus Ur Random Sodium Ur Random Potassium Ur Random Chloride Ur Random Urea Nitrogn 632 Urine Creatinine Stool Occult Blood Random Vancomycin Opiates Screen Negative Methadone Screen Positive Barbiturate Screen Negative Phencyclidine Screen Negative Ur Amphetamines Screen Negative MDMA (Ecstasy) Screen Negative Benzodiazepines Screen Negative Cocaine Screen Negative U Marijuana (THC) Screen Negative HIV 1&2 Antibody Screen HIV P24 Antigen Blood Type Antibody Screen Crossmatch Spec Expiration Date 12/09/16 12/09/16 12/09/16 08:55 09:45 22:00 WBC 20.5 H RBC 3.37 L D Hgb 9.0 L D Hct 27.6 L D MCV 81.8 MCH 26.7 MCHC 32.7 RDW 16.3 H Plt Count 342 MPV 8.1 Total Counted 100 Neutrophils % Y Neutrophils % (Manual) 63 Band Neuts % (Manual) 20 H D Lymphocytes % Y Lymphocytes % (Manual) 6 L Monocytes % Monocytes % (Manual) 4 Eosinophils % Eosinophils % (Manual) 4 D Basophils % Myelocytes % (Man) 1 Hypochromia Occasional Platelet Estimate Adequate Platelet Comment Polychromasia 1+ Anisocytosis Microcytosis Tear Drop Cells ESR INR PTT (Actin FS) D-Dimer Anticoagulation Therapy Puncture Site ABG pH ABG pCO2 at Pt Temp ABG pO2 at Pt Temp ABG HCO3 ABG O2 Sat (Measured) ABG O2 Content ABG Base Excess Simon Test O2 Delivery Device Oxygen Flow Rate Vent Mode Vent Rate Mechanical Rate PEEP Pressure Support Vent Sodium Potassium Chloride Carbon Dioxide Anion Gap BUN Creatinine Creat Clearance w eGFR POC Glucometer Random Glucose Serum Osmolality Lactic Acid Uric Acid Calcium Phosphorus Magnesium Iron TIBC Iron Saturation Transferrin Ferritin Total Bilirubin Direct Bilirubin AST ALT Alkaline Phosphatase Ammonia Creatine Kinase Troponin I C-Reactive Protein B-Natriuretic Peptide Total Protein Albumin Tumor Marker AFP Urine Color Urine Appearance Urine pH Urine Protein Urine Glucose (UA) Urine Ketones Urine Blood Urine Nitrite Urine Bilirubin Urine Urobilinogen Ur Leukocyte Esterase Urine RBC Urine WBC Ur Epithelial Cells Urine Bacteria Hyaline Casts Urine Mucus Ur Random Sodium 11 Ur Random Potassium 48.9 Ur Random Chloride < 10 Ur Random Urea Nitrogn Urine Creatinine Stool Occult Blood Random Vancomycin Opiates Screen Methadone Screen Barbiturate Screen Phencyclidine Screen Ur Amphetamines Screen MDMA (Ecstasy) Screen Benzodiazepines Screen Cocaine Screen U Marijuana (THC) Screen HIV 1&2 Antibody Screen HIV P24 Antigen Blood Type A POSITIVE Antibody Screen Negative Crossmatch See Detail Spec Expiration Date 12/10/16 12/10/16 12/10/16 06:00 06:00 06:00 WBC 18.1 H RBC 3.30 L Hgb 8.6 L Hct 26.8 L MCV 81.2 MCH 26.1 MCHC 32.1 RDW 16.1 H Plt Count 328 MPV 7.9 Total Counted 100 Neutrophils % Y Neutrophils % (Manual) 72 Band Neuts % (Manual) 8 D Lymphocytes % Y Lymphocytes % (Manual) 10 D Monocytes % Monocytes % (Manual) 8 D Eosinophils % Eosinophils % (Manual) 1 Basophils % Myelocytes % (Man) Hypochromia Platelet Estimate Adequate Platelet Comment No clumping noted Polychromasia Anisocytosis Microcytosis Tear Drop Cells ESR INR PTT (Actin FS) 70.6 H D-Dimer Anticoagulation Therapy Puncture Site ABG pH ABG pCO2 at Pt Temp ABG pO2 at Pt Temp ABG HCO3 ABG O2 Sat (Measured) ABG O2 Content ABG Base Excess Simon Test O2 Delivery Device Oxygen Flow Rate Vent Mode Vent Rate Mechanical Rate PEEP Pressure Support Vent Sodium 138 Potassium 5.0 Chloride 104 Carbon Dioxide 17 L Anion Gap 17 H BUN 68 H Creatinine 2.3 H Creat Clearance w eGFR 21.56 POC Glucometer Random Glucose 56 L D Serum Osmolality Lactic Acid Uric Acid 12.1 H Calcium 8.9 Phosphorus Magnesium 2.7 H Iron TIBC Iron Saturation Transferrin Ferritin Total Bilirubin 6.2 H D Direct Bilirubin AST 666 H ALT 297 H Alkaline Phosphatase 505 H Ammonia Creatine Kinase Troponin I C-Reactive Protein B-Natriuretic Peptide Total Protein 6.9 Albumin 1.6 L Tumor Marker AFP Urine Color Urine Appearance Urine pH Urine Protein Urine Glucose (UA) Urine Ketones Urine Blood Urine Nitrite Urine Bilirubin Urine Urobilinogen Ur Leukocyte Esterase Urine RBC Urine WBC Ur Epithelial Cells Urine Bacteria Hyaline Casts Urine Mucus Ur Random Sodium Ur Random Potassium Ur Random Chloride Ur Random Urea Nitrogn Urine Creatinine Stool Occult Blood Random Vancomycin Opiates Screen Methadone Screen Barbiturate Screen Phencyclidine Screen Ur Amphetamines Screen MDMA (Ecstasy) Screen Benzodiazepines Screen Cocaine Screen U Marijuana (THC) Screen HIV 1&2 Antibody Screen HIV P24 Antigen Blood Type Antibody Screen Crossmatch Spec Expiration Date 12/10/16 12/10/16 12/10/16 11:45 11:45 16:00 WBC RBC Hgb Hct MCV MCH MCHC RDW Plt Count MPV Total Counted Neutrophils % Neutrophils % (Manual) Band Neuts % (Manual) Lymphocytes % Lymphocytes % (Manual) Monocytes % Monocytes % (Manual) Eosinophils % Eosinophils % (Manual) Basophils % Myelocytes % (Man) Hypochromia Platelet Estimate Platelet Comment Polychromasia Anisocytosis Microcytosis Tear Drop Cells ESR INR PTT (Actin FS) D-Dimer Anticoagulation Therapy Puncture Site ABG pH ABG pCO2 at Pt Temp ABG pO2 at Pt Temp ABG HCO3 ABG O2 Sat (Measured) ABG O2 Content ABG Base Excess Simon Test O2 Delivery Device Oxygen Flow Rate Vent Mode Vent Rate Mechanical Rate PEEP Pressure Support Vent Sodium Potassium Chloride Carbon Dioxide Anion Gap BUN Creatinine Creat Clearance w eGFR POC Glucometer Random Glucose Serum Osmolality Lactic Acid Uric Acid Calcium Phosphorus Magnesium Iron TIBC Iron Saturation Transferrin Ferritin Total Bilirubin Direct Bilirubin AST ALT Alkaline Phosphatase Ammonia < 10 L Creatine Kinase Troponin I C-Reactive Protein B-Natriuretic Peptide Total Protein Albumin Tumor Marker AFP Urine Color Urine Appearance Urine pH Urine Protein Urine Glucose (UA) Urine Ketones Urine Blood Urine Nitrite Urine Bilirubin Urine Urobilinogen Ur Leukocyte Esterase Urine RBC Urine WBC Ur Epithelial Cells Urine Bacteria Hyaline Casts Urine Mucus Ur Random Sodium 16 Ur Random Potassium Ur Random Chloride Ur Random Urea Nitrogn Urine Creatinine 127.0 Stool Occult Blood Random Vancomycin Opiates Screen Methadone Screen Barbiturate Screen Phencyclidine Screen Ur Amphetamines Screen MDMA (Ecstasy) Screen Benzodiazepines Screen Cocaine Screen U Marijuana (THC) Screen HIV 1&2 Antibody Screen HIV P24 Antigen Blood Type Antibody Screen Crossmatch Spec Expiration Date 12/10/16 12/10/16 12/11/16 16:00 18:25 10:55 WBC RBC Hgb Hct MCV MCH MCHC RDW Plt Count MPV Total Counted Neutrophils % Neutrophils % (Manual) Band Neuts % (Manual) Lymphocytes % Lymphocytes % (Manual) Monocytes % Monocytes % (Manual) Eosinophils % Eosinophils % (Manual) Basophils % Myelocytes % (Man) Hypochromia Platelet Estimate Platelet Comment Polychromasia Anisocytosis Microcytosis Tear Drop Cells ESR INR PTT (Actin FS) 52.8 H D-Dimer Anticoagulation Therapy Y Puncture Site Right radial ABG pH 7.34 L ABG pCO2 at Pt Temp 27.9 L ABG pO2 at Pt Temp 86.9 ABG HCO3 14.5 L* ABG O2 Sat (Measured) 95.7 ABG O2 Content 11.7 L ABG Base Excess -9.9 L Simon Test Positive O2 Delivery Device R/a Oxygen Flow Rate 21% Vent Mode Y Vent Rate Y Mechanical Rate Y PEEP Pressure Support Vent Y Sodium Potassium Chloride Carbon Dioxide Anion Gap BUN Creatinine Creat Clearance w eGFR POC Glucometer Random Glucose Serum Osmolality Lactic Acid 4.4 H* Uric Acid Calcium Phosphorus Magnesium Iron TIBC Iron Saturation Transferrin Ferritin Total Bilirubin Direct Bilirubin AST ALT Alkaline Phosphatase Ammonia Creatine Kinase Troponin I C-Reactive Protein B-Natriuretic Peptide Total Protein Albumin Tumor Marker AFP Urine Color Urine Appearance Urine pH Urine Protein Urine Glucose (UA) Urine Ketones Urine Blood Urine Nitrite Urine Bilirubin Urine Urobilinogen Ur Leukocyte Esterase Urine RBC Urine WBC Ur Epithelial Cells Urine Bacteria Hyaline Casts Urine Mucus Ur Random Sodium Ur Random Potassium Ur Random Chloride Ur Random Urea Nitrogn Urine Creatinine Stool Occult Blood Random Vancomycin Opiates Screen Methadone Screen Barbiturate Screen Phencyclidine Screen Ur Amphetamines Screen MDMA (Ecstasy) Screen Benzodiazepines Screen Cocaine Screen U Marijuana (THC) Screen HIV 1&2 Antibody Screen HIV P24 Antigen Blood Type Antibody Screen Crossmatch Spec Expiration Date 12/11/16 12/11/16 12/11/16 10:55 10:55 10:55 WBC 20.7 H RBC 3.45 L Hgb 8.9 L Hct 28.4 L MCV 82.3 MCH 25.7 MCHC 31.2 L RDW 16.7 H Plt Count 339 MPV 7.4 L Total Counted Neutrophils % 86.4 H Neutrophils % (Manual) Band Neuts % (Manual) Lymphocytes % 6.8 L D Lymphocytes % (Manual) Monocytes % 5.3 Monocytes % (Manual) Eosinophils % 0.8 Eosinophils % (Manual) Basophils % 0.7 Myelocytes % (Man) Hypochromia Platelet Estimate Platelet Comment Polychromasia Anisocytosis Microcytosis Tear Drop Cells ESR INR 1.77 H PTT (Actin FS) D-Dimer Anticoagulation Therapy Puncture Site ABG pH ABG pCO2 at Pt Temp ABG pO2 at Pt Temp ABG HCO3 ABG O2 Sat (Measured) ABG O2 Content ABG Base Excess Simon Test O2 Delivery Device Oxygen Flow Rate Vent Mode Vent Rate Mechanical Rate PEEP Pressure Support Vent Sodium 138 Potassium 5.3 H Chloride 106 Carbon Dioxide 15 L Anion Gap 17 H BUN 75 H Creatinine 2.3 H Creat Clearance w eGFR POC Glucometer Random Glucose 42 L* D Serum Osmolality Lactic Acid Uric Acid Calcium 9.1 Phosphorus 4.8 Magnesium 2.8 H Iron TIBC Iron Saturation Transferrin Ferritin Total Bilirubin 6.8 H Direct Bilirubin 5.8 H AST 664 H ALT 314 H Alkaline Phosphatase 515 H Ammonia Creatine Kinase Troponin I C-Reactive Protein B-Natriuretic Peptide Total Protein 7.2 Albumin 1.6 L Tumor Marker AFP Urine Color Urine Appearance Urine pH Urine Protein Urine Glucose (UA) Urine Ketones Urine Blood Urine Nitrite Urine Bilirubin Urine Urobilinogen Ur Leukocyte Esterase Urine RBC Urine WBC Ur Epithelial Cells Urine Bacteria Hyaline Casts Urine Mucus Ur Random Sodium Ur Random Potassium Ur Random Chloride Ur Random Urea Nitrogn Urine Creatinine Stool Occult Blood Random Vancomycin Opiates Screen Methadone Screen Barbiturate Screen Phencyclidine Screen Ur Amphetamines Screen MDMA (Ecstasy) Screen Benzodiazepines Screen Cocaine Screen U Marijuana (THC) Screen HIV 1&2 Antibody Screen HIV P24 Antigen Blood Type Antibody Screen Crossmatch Spec Expiration Date 12/11/16 12/11/16 12/11/16 15:22 16:31 16:40 WBC RBC Hgb Hct MCV MCH MCHC RDW Plt Count MPV Total Counted Neutrophils % Neutrophils % (Manual) Band Neuts % (Manual) Lymphocytes % Lymphocytes % (Manual) Monocytes % Monocytes % (Manual) Eosinophils % Eosinophils % (Manual) Basophils % Myelocytes % (Man) Hypochromia Platelet Estimate Platelet Comment Polychromasia Anisocytosis Microcytosis Tear Drop Cells ESR INR PTT (Actin FS) D-Dimer Anticoagulation Therapy Puncture Site Right radial ABG pH 7.30 L ABG pCO2 at Pt Temp 30.1 L ABG pO2 at Pt Temp 111.0 H D ABG HCO3 14.3 L* ABG O2 Sat (Measured) 97.6 ABG O2 Content 11.3 L ABG Base Excess -10.7 L* Simon Test Positive O2 Delivery Device Nasal Oxygen Flow Rate 2l Vent Mode Vent Rate Mechanical Rate PEEP 0.0 Pressure Support Vent Sodium Potassium Chloride Carbon Dioxide Anion Gap BUN Creatinine Creat Clearance w eGFR POC Glucometer 81 [id number] Random Glucose Serum Osmolality Lactic Acid Uric Acid Calcium Phosphorus Magnesium Iron TIBC Iron Saturation Transferrin Ferritin Total Bilirubin Direct Bilirubin AST ALT Alkaline Phosphatase Ammonia Creatine Kinase Troponin I C-Reactive Protein B-Natriuretic Peptide Total Protein Albumin Tumor Marker AFP Urine Color Urine Appearance Urine pH Urine Protein Urine Glucose (UA) Urine Ketones Urine Blood Urine Nitrite Urine Bilirubin Urine Urobilinogen Ur Leukocyte Esterase Urine RBC Urine WBC Ur Epithelial Cells Urine Bacteria Hyaline Casts Urine Mucus Ur Random Sodium Ur Random Potassium Ur Random Chloride Ur Random Urea Nitrogn Urine Creatinine Stool Occult Blood Random Vancomycin Opiates Screen Methadone Screen Barbiturate Screen Phencyclidine Screen Ur Amphetamines Screen MDMA (Ecstasy) Screen Benzodiazepines Screen Cocaine Screen U Marijuana (THC) Screen HIV 1&2 Antibody Screen HIV P24 Antigen Blood Type Antibody Screen Crossmatch Spec Expiration Date 12/11/16 18:01 WBC RBC Hgb Hct MCV MCH MCHC RDW Plt Count MPV Total Counted Neutrophils % Neutrophils % (Manual) Band Neuts % (Manual) Lymphocytes % Lymphocytes % (Manual) Monocytes % Monocytes % (Manual) Eosinophils % Eosinophils % (Manual) Basophils % Myelocytes % (Man) Hypochromia Platelet Estimate Platelet Comment Polychromasia Anisocytosis Microcytosis Tear Drop Cells ESR INR PTT (Actin FS) D-Dimer Anticoagulation Therapy Puncture Site ABG pH ABG pCO2 at Pt Temp ABG pO2 at Pt Temp ABG HCO3 ABG O2 Sat (Measured) ABG O2 Content ABG Base Excess Simon Test O2 Delivery Device Oxygen Flow Rate Vent Mode Vent Rate Mechanical Rate PEEP Pressure Support Vent Sodium Potassium Chloride Carbon Dioxide Anion Gap BUN Creatinine Creat Clearance w eGFR POC Glucometer [id number] Random Glucose Serum Osmolality Lactic Acid Uric Acid Calcium Phosphorus Magnesium Iron TIBC Iron Saturation Transferrin Ferritin Total Bilirubin Direct Bilirubin AST ALT Alkaline Phosphatase Ammonia Creatine Kinase Troponin I C-Reactive Protein B-Natriuretic Peptide Total Protein Albumin Tumor Marker AFP Urine Color Urine Appearance Urine pH Urine Protein Urine Glucose (UA) Urine Ketones Urine Blood Urine Nitrite Urine Bilirubin Urine Urobilinogen Ur Leukocyte Esterase Urine RBC Urine WBC Ur Epithelial Cells Urine Bacteria Hyaline Casts Urine Mucus Ur Random Sodium Ur Random Potassium Ur Random Chloride Ur Random Urea Nitrogn Urine Creatinine Stool Occult Blood Random Vancomycin Opiates Screen Methadone Screen Barbiturate Screen Phencyclidine Screen Ur Amphetamines Screen MDMA (Ecstasy) Screen Benzodiazepines Screen Cocaine Screen U Marijuana (THC) Screen HIV 1&2 Antibody Screen HIV P24 Antigen Blood Type Antibody Screen Crossmatch Spec Expiration Date Current Medications Generic Name Dose Route Start Last Admin Trade Name Freq PRN Reason Stop Dose Admin Heparin Sodium (Porcine) 5,000 unit 12/11/16 16:23 Heparin - IVPUSH PRN PRN Heparin Heparin Sodium (Porcine) 1,000 unit 12/11/16 16:33 Heparin - IVPUSH PRN PRN Heparin Piperacillin Sod/Tazobactam 50 mls @ 100 mls/hr 12/11/16 18:00 Sod 3.375 gm/ Dextrose IVPB Q8H-IV KEITH Heparin Sodium (Porcine) 25, 500 mls @ 37.08 mls/hr 12/11/16 16:23 000 unit/ Sodium Chloride IV TITR KEITH Protocol 1,854 UNIT/HR Sodium Bicarbonate 150 meq/ 1,150 mls @ 125 mls/hr 12/11/16 17:04 12/11/16 17: 49 Dextrose IV 125 mls/hr Q10H KEITH Administration Methadone HCl 80 mg/ Methadone 110 mg 12/12/16 06:00 HCl 30 mg PO DAILY@06 [facility] Morphine Sulfate 1 mg 12/11/16 16:23 Morphine Injection - IVPUSH Q4H PRN PAIN HOSPITAL COURSE: Date of Admission:12/06/16 Date of Discharge: 12/11/16 Pre Hospital Course 61 year-old female with a PMH significant for HTN, HLD, basal cell carcinoma, chronic lower extremity edema, and methadone dependency 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 Current every day smoker x 40 years. Recently hospitalized at [facility] from 11/25/16 to 11/27/2016 for RUQ pain and was diagnosed with a large liver mass during her hospitalization. Patient did not stay for the follow up triple phase CT scan at [facility] and opted to leave before biopsy of the liver mass. Patient presented to [facility] ED on 12/06/2016 with dyspnea on exertion and stated she had this dyspnea when seen at [facility] but it had gotten progressively worse. She also reported worsening bilateral lower extremity edema. In the ED she reported intermittent chest pain. On arrival to [place], she was noted to have HR 120, BP 141/94, and SaO2 99% room air. She had a persistent leukocytosis since arrival (15.7k<--> 20.7k) but remained afebrile throughout her hospital stay. Available Findings from [facility] 11/25/16 CT chest w/contrast: large heterogeneous mass within right lobe liver, 15 x 12.5cm, and small paracardiac lymph node HBsAb+ HBsAg (-) Hep C (-) CA 19-9 elevated @ 77 (range <34) CEA <0.5 11/25/16 Colonoscopy: mild gastritis, no varices, no neoplasms Imaging at [facility] 12/06/16 TTE: echogenic mid-sized occulating mass seen at level of the pulmonic valve - thrombus needs to be excluded 12/08/16 BAM: LV normal; RV normal; no thrombus; trace AI; small pericardial effusion, no evidence of vegetations on all valves 12/07/16 US abd: large area of heterogenous echotexture liver, may be consistent with 15cm right lobe mass; partially distended gallbladder, thickend wall, and possible trace fluid 12/11/16 US upper abd: no susan evidence of free fluid/ascites in the 4 quadrants 12/11/16 CTAP: large hypodense masslike density in right hepatic lobe; small amount of free fluid in the right flank and in the pelvis. Assessment and plan by system Neuro Altered mental status likely secondary to metabolic encephalopathy --on 12/10 began exhibiting signs of altered mental status; lethargic; unable to focus or answer questions, A&Ox2 --Tot bili 6.8, elevated transaminases; BUN 68; Cr 2.3; lactic acid 4.4; serum bicarb 15 --12/10 CT head: no acute intracranial pathology Cardiovascular r/o ACS r/o endocarditis --initial concern for possible endocarditis given h/o drug abuse; started on Vanc and Zosyn --12/08 BAM: negative for thrombus or vegetations; antibiotics stopped (2 days given) --ACS r/o: troponins neg x 3; ECG not suggestive of acute ischemic event Pulmonary Shortness of breath --r/o PE: Wells Score 8.5 high risk; echos without evidence of right heart strain --because Cr 1.5 on arrival, could not administer IV contrast for CTA --started on heparin drip --transfused 1U PRBC on 12/09 with good response, Hgb 6.9-->9.0,h/h stable since GI Liver mass Liver failure --large right lobe masslike density; abdominal girth has increased significantly over past 24 hours --bili, transaminases all trending up --serial serum glucose levels over last 24 hours trending down (88-->56-->42) --serum bicarb 15 --D5+bicarb drip started @125mL/hr; hourly fingersticks ID Persistent leukocytosis --afebrile --blood culutres (12/06, 12/07, 12/11) NGTD --urine culture 12/10 negative --empiric Zosyn started 12/11 Renal Acute Kidney Injury Azotemia --baseline Cr 1.0; on admission Cr 1.5; now Cr 2.3 --BUN 29-->75 --UOP ~30 cc's/hr Psych Methadone dependency Minutes to complete discharge: 90 Discharge Summary Reason For Visit: EDEMA OF BOTH LEGS ANEMIA EXERTIONAL DYSPNEA Current Active Problems COLEMAN (acute kidney injury) (Acute) Abnormal echocardiogram (Acute) Abnormal liver function tests (Acute) Anemia (Acute) Edema of both legs (Acute) Exertional dyspnea (Acute) Leukocytosis (Acute) Liver mass, right lobe (Acute) Renal insufficiency (Acute) - Instructions Referrals: Sven Chávez MD [Primary Care Provider] - - Home Medications Comprehensive Discharge Medication List: Ambulatory Orders Methadone [Dolophine -] 110 mg PO DAILY #7 tab.disper 10/01/13 Aspirin [ASA -] 81 mg PO DAILY 03/02/16 Levofloxacin [Levaquin] 500 mg PO DAILY #10 tablet 03/07/16 Lipase/Protease/Amylase [Cornel Biggs 6,000 Units Capsule] 3 cap PO TIDCM capsule. 03/07/16 Methadone [Dolophine -] 110 mg PO DAILY tablet MDD 1 03/07/16 Metronidazole [Flagyl -] 250 mg PO TID #21 tablet 03/07/16 This patient is new to me today: No Emergency Visit: Yes ED Registration Date: 12/06/16 Care time: The patient presented to the Emergency Department on the above date and was hospitalized for further evaluation of their emergent condition. Critical Care patient: Yes Total Critical Care Time (in minutes): 120 Critical Care Statement: The care of this patient involved high complexity decision making to prevent further life threatening deterioration of the patient 's condition and/or to evaluate & treat vital organ system(s) failure or risk of failure. - Discharge Referral Referred to [facility] Med P.C.: No
[2016-12-11 16:57] LABS: ARTERIAL BLD GAS O2 SATURATION 97.6 % (90-98.9); ARTERIAL BLOOD GAS BASE EXCESS -10.7 meq/l (-2-2)
--- NOTE | 2016-12-11 16:58 | PN ---
Progress Note (short form) - Note Progress Note: GI Addendum: Records from [facility] found: Nedra is HCV negative, HBsAb positive and HBsAg negative. Her Ca 19.9 was elevated at 77 ( range <34) and CEA < 0.5. Colonoscopy and EGD revealed mild gastritis, no varices and no neoplasms. CT revealed a 15 x 12.5cm right lobe neoplasm.
[2016-12-11 17:00] LABS: ALLENS TEST POSITIVE; ART PUNCT SITE RIGHT RADIAL; LPM/O2% 2L; PT. ON O2? YES; TYPE OF O2 NASAL
[2016-12-11 17:01] LABS: ARTERIAL BLOOD GAS HCO3 14.3 meq/L (22-26)
[2016-12-11] MEDS ORDERED: SODIUM BICARBONATE 8.4% - 50 ML ONE (17:38)
[2016-12-11] MEDS: SODIUM BICARBONATE 8.4% - 150 MEQ in DEXTROSE 5%-WATER - 1,000 ML IV SCH (17:49)
[2016-12-11] MEDS: PIPERACILLIN/TAZOB 3.375 GM 3.375 GM in DEXTROSE 5%-WATER - 50 ML IVPB SCH (18:53)
[2016-12-11 21:49] LABS: URINE APPEARANCE SLCLOUDY; URINE BILIRUBIN NEGATIVE (NEGATIVE); URINE BLOOD NEGATIVE (NEGATIVE); URINE COLOR AMBER; URINE GLUCOSE (UA) NEGATIVE (NEGATIVE); URINE KETONE NEGATIVE (NEGATIVE); URINE LEUK ESTERASE NEGATIVE (NEGATIVE); URINE NITRITE NEGATIVE (NEGATIVE); URINE PROTEIN NEGATIVE (NEGATIVE)
[2016-12-11] MEDS: morphine CARPU-JECT 2 MG/1 ML DISP.SYRIN IVPUSH PRN (22:36)
[2016-12-12] MEDS: SODIUM BICARBONATE 8.4% - 150 MEQ in DEXTROSE 5%-WATER - 1,000 ML IV SCH ×3 (00:14→09:31)
[2016-12-12] MEDS: PIPERACILLIN/TAZOB 3.375 GM 3.375 GM in DEXTROSE 5%-WATER - 50 ML IVPB SCH ×2 (01:31→09:31)
[2016-12-12] MEDS: morphine CARPU-JECT 2 MG/1 ML DISP.SYRIN IVPUSH PRN ×2 (04:00→21:35)
[2016-12-12] MEDS ORDERED: METHADONE 80 MG, METHADONE 30 MG PO SCH (06:00)
[2016-12-12 06:13] LABS: BASOPHIL 0.5 % (0-2.0); EOSINOPHIL 1.5 % (0-4.5); MCH 26.5 pg (25.7-33.7); MCHC 32.2 g/dl (32.0-36.0); MEAN CELL VOLUME 82.2 fl (80-96); MEAN PLT VOLUME 8.1 fl (7.5-11.1); NEUTROPHILS 85.1 % (42.8-82.8); PLATELET COUNT 299 K/MM3 (134-434); RDW 17.2 % (11.6-15.6)
[2016-12-12 06:38] LABS: INR 1.96 (0.82-1.09); PROTHROMBIN TIME (PATIENT) 21.9 SEC (9.98-11.88)
[2016-12-12] MEDS ORDERED: METHADONE HCL 10 MG TABLET ONE (06:44)
[2016-12-12] MEDS ORDERED: METHADONE HCL 40 MG DISPERSABLE TABLET ONE (06:44)
[2016-12-12 06:47] LABS: ALBUMIN 1.4 g/dl (3.4-5.0); ALK PHOS 459 U/L (45-117); ANION GAP 14 (8-16); BILIRUBIN,TOTAL 5.9 mg/dL (0.2-1.0); CALCIUM 8.9 mg/dL (8.5-10.1); CO2 18 mmol/L (21-32); CREATININE 2.5 mg/dL (0.55-1.02); GLUCOSE,RANDOM 90 mg/dL (74-106); MAGNESIUM 2.7 mg/dL (1.8-2.4); SGPT/ALT 339 U/L (12-78); TOT PROT 7.4 g/dl (6.4-8.2)
[2016-12-12 07:10] LABS: SGOT/AST 822 U/L (15-37)
[2016-12-12] MEDS ORDERED: SODIUM BICARBONATE 8.4% - 50 ML ONE (08:40)
--- NOTE | 2016-12-12 10:56 | PN ---
GI Progress Note Subjective: GI NOte: Nedra is lethargic but conversant when aroused. She did receive morphine overnight and got Methadone at 6AM today. Her urine output is about 20cc/hr. Her blood glucoses have been in a safe range with D5W alone. D10 would require a CVP. I am told by the pharmacy that there is a shortage of bicarbonate but still infusing at this point. Her anion gap is still elevated at 14. Her lactic acid level is 7.7. She ate minimally. - Objective Vital Signs: Vital Signs Temperature 97.6 F 12/12/16 10:00 Pulse Rate 92 H 12/12/16 10:10 Respiratory Rate 20 12/12/16 10:00 Blood Pressure 124/74 12/12/16 10:00 O2 Sat by Pulse Oximetry (%) 99 12/12/16 10:10 Laboratory Tests 12/05/16 12/08/16 12/09/16 21:57 06:10 08:30 WBC Plt Count Carbon Dioxide Anion Gap Creatinine 1.5 H D 1.9 H Lactic Acid Total Bilirubin 1.8 H D 4.0 H Direct Bilirubin AST ALT Alkaline Phosphatase Albumin 12/11/16 12/12/16 12/12/16 10:55 05:30 05:30 WBC 21.0 H Plt Count 299 Carbon Dioxide 18 L Anion Gap 14 Creatinine 2.3 H 2.5 H Lactic Acid Total Bilirubin 6.8 H 5.9 H Direct Bilirubin 5.0 H AST 822 H D ALT 339 H Alkaline Phosphatase 459 H Albumin 1.4 L 12/12/16 05:30 WBC Plt Count Carbon Dioxide Anion Gap Creatinine Lactic Acid 7.7 H* Total Bilirubin Direct Bilirubin AST ALT Alkaline Phosphatase Albumin Constitutional: Calm Gastrointestinal Inspection: Yes: Distention ...Auscultate: Yes: Hypoactive Bowel Sounds ...Palpate: Yes: Soft, Other (nontender) Labs: CBC, BMP 12/12/16 05:30 12/12/16 05:30 INR, PTT INR 1.96 (0.82-1.09) H 12/12/16 05:30 Assessment/Plan Advanced liver failure due to rapid tumor growth leading to hepatorenal syndrome and hypoglycemia. Receiving D5 and HCO3. Will increase fluids to 150cc/ hr. Believe lethargy is narcotic effect rather than hepatic encephalopathy at this point. Await transfer to [facility]. Prognosis grim.
[2016-12-12] MEDS: PIPERACILLIN/TAZOB 3.375 GM 50 ML IVPB SCH ×2 (11:15→18:21)
--- NOTE | 2016-12-12 11:50 | PN ---
Teaching Attending Note Name of Resident: Daniel Zaldivar ATTENDING PHYSICIAN STATEMENT I saw and evaluated the patient. I reviewed the resident's note and discussed the case with the resident. I agree with the resident's findings and plan as documented. SUBJECTIVE: Pt seen and examined in the ICU. Lethargic this AM but arousable. Received morphine overnight. OBJECTIVE: Last Vital Signs Temp Pulse Resp BP Pulse Ox 97.6 F 93 H 27 H 119/71 99 12/12/16 10:00 12/12/16 11:14 12/12/16 11:14 12/12/16 11:14 12/12/16 10:10 Intake & Output 12/09/16 12/10/16 12/11/16 12/12/16 23:59 23:59 23:59 23:59 Intake Total 0998 420 1925 2252 Output Total 800 500 750 825 Balance 412 028 0176 1427 Weight 230 lb 229 lb 12.8 oz 234 lb 6.4 oz 234 lb 7 oz Gen: lethargic but arousable, mildly tachypneic at rest Heart: RRR Lung: decreased breath sounds right base Abd: distended, hepatomegaly Ext: no edema CBC, BMP 12/12/16 05:30 12/12/16 05:30 ABG Results ABG pH 7.30 (7.35-7.45) L 12/11/16 16:40 ABG pCO2 at Pt Temp 30.1 mmHg (35-45) L 12/11/16 16:40 ABG pO2 at Pt Temp 111.0 mmHg (80-100) H D 12/11/16 16:40 ABG HCO3 14.3 meq/L (22-26) L* 12/11/16 16:40 ABG O2 Sat (Measured) 97.6 % (90-98.9) 12/11/16 16:40 ABG O2 Content 11.3 % vol (15-22) L 12/11/16 16:40 ABG Base Excess -10.7 meq/l (-2-2) L* 12/11/16 16:40 Active Medications Heparin Sodium (Porcine) (Heparin -) 5,000 unit IVPUSH PRN PRN PRN Reason: Heparin Heparin Sodium (Porcine) (Heparin -) 1,000 unit IVPUSH PRN PRN PRN Reason: Heparin Heparin Sodium (Porcine) 25, (000 unit/ Sodium Chloride) 500 mls @ 37.08 mls/ hr IV TITR KEITH; 1,854 UNIT/HR PRN Reason: Protocol Last Titration: 12/12/16 10:56 Dose: 2,200 unit/hr Piperacillin Sod/Tazobactam Sod (Zosyn 3.375gm Ivpb (Pre-Docked)) 50 mls @ 100 mls/hr IVPB Q8H-IV KEITH Last Admin: 12/12/16 11:15 Dose: 100 mls/hr Sodium Bicarbonate 150 meq/ (Dextrose) 1,150 mls @ 150 mls/hr IV Q10H KEITH Methadone HCl 80 mg/ Methadone (HCl 30 mg) 110 mg PO DAILY@06 KEITH Last Admin: 12/12/16 06:47 Dose: 110 mg Morphine Sulfate (Morphine Injection -) 1 mg IVPUSH Q4H PRN PRN Reason: PAIN Last Admin: 12/12/16 04:00 Dose: 1 mg ASSESSMENT AND PLAN: Liver Mass/Hepatomegaly Liver Failure with Acute Kidney Injury r/o PE Elevated R Hemidiaphragm from above Metabolic Acidosis Anemia - on empiric anticoagulation - V/Q scan although less likely PE - suspect diaphragmatic compression and metabolic acidosis contributing to dyspnea - monitor H/H - monitor urine output, creatinine - continue IVF, bicarb - for transfer to tertiary care center - poor prognosis critical care time spent in reviewing chart, evaluating patient and formulating plan 35 min
--- NOTE | 2016-12-12 13:37 | PN ---
Progress Note (short form) - Note Progress Note: in MICU Liver Mass/hepatic failure COLEMAN/ hepatorenal Severe Hypoalbuminemia mild anasarca somnolent, s/p hypoglycemia, hepatic encephalopathy Current Medications Heparin Sodium (Porcine) (Heparin -) 5,000 unit IVPUSH PRN PRN PRN Reason: Heparin Heparin Sodium (Porcine) (Heparin -) 1,000 unit IVPUSH PRN PRN PRN Reason: Heparin Heparin Sodium (Porcine) 25, (000 unit/ Sodium Chloride) 500 mls @ 37.08 mls/ hr IV TITR KEITH; 1,854 UNIT/HR PRN Reason: Protocol Last Titration: 12/12/16 10:56 Dose: 2,200 unit/hr Piperacillin Sod/Tazobactam Sod (Zosyn 3.375gm Ivpb (Pre-Docked)) 50 mls @ 100 mls/hr IVPB Q8H-IV KEITH Last Admin: 12/12/16 11:15 Dose: 100 mls/hr Sodium Bicarbonate 150 meq/ (Dextrose) 1,150 mls @ 150 mls/hr IV Q10H KEITH Methadone HCl 80 mg/ Methadone (HCl 30 mg) 110 mg PO DAILY@06 KEITH Last Admin: 12/12/16 06:47 Dose: 110 mg Morphine Sulfate (Morphine Injection -) 1 mg IVPUSH Q4H PRN PRN Reason: PAIN Last Admin: 12/12/16 04:00 Dose: 1 mg Last Vital Signs Temp Pulse Resp BP Pulse Ox 97.4 F L 90 22 111/58 99 12/12/16 12:59 12/12/16 12:59 12/12/16 12:59 12/12/16 12:59 12/12/16 10:10 Somnolent but responsive Lungs clear Heart RRR Abd distended, dull to percussion ( no ascites on abd sono, major component is liver mass) Ext 3+ edema CBC, BMP 12/12/16 05:30 12/12/16 05:30 IMP- Hypoglycemia / liver failure coleman peristent azotemia, but not worsening today- urine output 750 bun and creat may have peaked r/o hepatorenal syndrome- less likely since she is non-oliguric May still be volume depleted intravascular since her peripheral edema is not very pronounced she gained 20 lbs from admission, my be 3rd spacing Plan- continue strict I and o will add a trial of albumin for borderline low urine output
--- NOTE | 2016-12-12 14:38 | PN ---
Progress Note (short form) - Note Progress Note: Patient seen and examined lethargic/answering simple questions Last Vital Signs Temp Pulse Resp BP Pulse Ox 97.4 F L 90 22 111/58 99 12/12/16 12:59 12/12/16 12:59 12/12/16 12:59 12/12/16 12:59 12/12/16 10:10 Cor: RSR, No murmurs, No gallops Lungs: Clear to P&A Abd: Soft, Normal bowel sounds, No organomegaly Ext:No significant edema Skin: No rashes, Integument intact Abnormal Lab Results 12/09/16 12/11/16 12/11/16 09:45 16:40 20:00 WBC RBC Hgb Hct RDW Neutrophils % Lymphocytes % INR PTT (Actin FS) ABG pH 7.30 L ABG pCO2 at Pt Temp 30.1 L ABG pO2 at Pt Temp 111.0 H D ABG HCO3 14.3 L* ABG O2 Content 11.3 L ABG Base Excess -10.7 L* Carbon Dioxide BUN Creatinine Lactic Acid Phosphorus Magnesium Total Bilirubin Direct Bilirubin AST ALT Alkaline Phosphatase Albumin Urine Urobilinogen 2.0 H Crossmatch See Detail 12/12/16 12/12/16 12/12/16 05:30 05:30 05:30 WBC 21.0 H RBC 3.18 L Hgb 8.4 L Hct 26.1 L RDW 17.2 H Neutrophils % 85.1 H Lymphocytes % 6.3 L INR 1.96 H PTT (Actin FS) 88.5 H D ABG pH ABG pCO2 at Pt Temp ABG pO2 at Pt Temp ABG HCO3 ABG O2 Content ABG Base Excess Carbon Dioxide BUN Creatinine Lactic Acid Phosphorus Magnesium Total Bilirubin Direct Bilirubin AST ALT Alkaline Phosphatase Albumin Urine Urobilinogen Crossmatch 12/12/16 12/12/16 05:30 05:30 WBC RBC Hgb Hct RDW Neutrophils % Lymphocytes % INR PTT (Actin FS) ABG pH ABG pCO2 at Pt Temp ABG pO2 at Pt Temp ABG HCO3 ABG O2 Content ABG Base Excess Carbon Dioxide 18 L BUN 75 H Creatinine 2.5 H Lactic Acid 7.7 H* Phosphorus 5.0 H Magnesium 2.7 H Total Bilirubin 5.9 H Direct Bilirubin 5.0 H AST 822 H D ALT 339 H Alkaline Phosphatase 459 H Albumin 1.4 L Urine Urobilinogen Crossmatch Active Medications Generic Name Dose Route Start Last Admin Trade Name Freq PRN Reason Stop Dose Admin Albumin Human 12.5 gm 12/12/16 14:16 Albumin Human 25% IVPB 12/12/16 14:17 Q30M ONE Heparin Sodium (Porcine) 5,000 unit 12/11/16 16:23 Heparin - IVPUSH PRN PRN Heparin Heparin Sodium (Porcine) 1,000 unit 12/11/16 16:33 Heparin - IVPUSH PRN PRN Heparin Heparin Sodium (Porcine) 25, 500 mls @ 37.08 mls/hr 12/11/16 16:23 12/12/16 10: 56 000 unit/ Sodium Chloride IV 2,200 unit/hr TITR KEITH Titration Protocol 1,854 UNIT/HR Piperacillin Sod/Tazobactam Sod 50 mls @ 100 mls/hr 12/12/16 09:59 12/12/16 11: 15 Zosyn 3.375gm Ivpb (Pre-Docked) IVPB 100 mls/hr Q8H-IV KEITH Administration Sodium Bicarbonate 150 meq/ 1,150 mls @ 150 mls/hr 12/12/16 16:00 Dextrose IV Q10H KEITH Methadone HCl 80 mg/ Methadone 110 mg 12/12/16 06:00 12/12/16 06:47 HCl 30 mg PO 110 mg DAILY@06 KEITH Administration Morphine Sulfate 1 mg 12/11/16 16:23 12/12/16 04:00 Morphine Injection - IVPUSH 1 mg Q4H PRN Administration PAIN A/P 61 y/o patient with rt. lobe, liver mass, presented with worsening liver function/hepato/renal syndrome Rapidly enlarging hepatic mass/liver failure CEA/CA19.9 --nl AFP -mildly elevated will check LDH/uric acid hEp. c/Hep. BsAg neg. from [facility] HIV - ? lymphoproliferative no adenopathy on scans will hold heparin drip. Coagulopathy Monitor hepatic/renal function discussed with all teams involved awaiting transfer to [facility]
--- NOTE | 2016-12-12 15:27 | PN ---
Physical Exam: SUBJECTIVE: Patient seen and examined in ICU. Sister present. OBJECTIVE: Vital Signs Period Temp Pulse Resp BP Sys/Crain Pulse Ox Last 24 Hr 97.1 F-99 F 89-106 16-28 96-143/48-89 99-100 GENERAL/NEURO: The patient somnolent, lethargic. Answers yes or no questions put by sister and quickly falls asleep. Denies pain. In no acute distress. LUNGS: Diminished breath sounds RLL. No wheezes, no crackles, no accessory muscle use. HEART: Regular rate and rhythm, S1, S2 without murmur, rub or gallop. ABDOMEN: Severely distended, tender, hypoactive bowel sounds EXTREMITIES: Mild bilateral edema resolving. Laboratory Results - last 24 hr 12/09/16 12/11/16 12/11/16 09:45 15:22 16:31 WBC RBC Hgb Hct MCV MCH MCHC RDW Plt Count MPV Neutrophils % Lymphocytes % Monocytes % Eosinophils % Basophils % INR PTT (Actin FS) Puncture Site ABG pH ABG pCO2 at Pt Temp ABG pO2 at Pt Temp ABG HCO3 ABG O2 Sat (Measured) ABG O2 Content ABG Base Excess Simon Test O2 Delivery Device Oxygen Flow Rate PEEP Sodium Potassium Chloride Carbon Dioxide Anion Gap BUN Creatinine POC Glucometer 81 98.19219 Random Glucose Lactic Acid Calcium Phosphorus Magnesium Total Bilirubin Direct Bilirubin AST ALT Alkaline Phosphatase Total Protein Albumin Urine Color Urine Appearance Urine pH Ur Specific [place] Urine Protein Urine Glucose (UA) Urine Ketones Urine Blood Urine Nitrite Urine Bilirubin Urine Urobilinogen Ur Leukocyte Esterase Blood Type A POSITIVE Antibody Screen Negative Crossmatch See Detail Spec Expiration Date 12/11/16 12/11/16 12/11/16 16:40 18:01 20:00 WBC RBC Hgb Hct MCV MCH MCHC RDW Plt Count MPV Neutrophils % Lymphocytes % Monocytes % Eosinophils % Basophils % INR PTT (Actin FS) Puncture Site Right radial ABG pH 7.30 L ABG pCO2 at Pt Temp 30.1 L ABG pO2 at Pt Temp 111.0 H D ABG HCO3 14.3 L* ABG O2 Sat (Measured) 97.6 ABG O2 Content 11.3 L ABG Base Excess -10.7 L* Simon Test Positive O2 Delivery Device Nasal Oxygen Flow Rate 2l PEEP 0.0 Sodium Potassium Chloride Carbon Dioxide Anion Gap BUN Creatinine POC Glucometer 99.26907 Random Glucose Lactic Acid Calcium Phosphorus Magnesium Total Bilirubin Direct Bilirubin AST ALT Alkaline Phosphatase Total Protein Albumin Urine Color Adela Urine Appearance Slcloudy Urine pH 5.0 Ur Specific [place] 1.015 Urine Protein Negative Urine Glucose (UA) Negative Urine Ketones Negative Urine Blood Negative Urine Nitrite Negative Urine Bilirubin Negative Urine Urobilinogen 2.0 H Ur Leukocyte Esterase Negative Blood Type Antibody Screen Crossmatch Spec Expiration Date 12/11/16 12/11/16 12/11/16 20:36 21:25 22:45 WBC RBC Hgb Hct MCV MCH MCHC RDW Plt Count MPV Neutrophils % Lymphocytes % Monocytes % Eosinophils % Basophils % INR PTT (Actin FS) Puncture Site ABG pH ABG pCO2 at Pt Temp ABG pO2 at Pt Temp ABG HCO3 ABG O2 Sat (Measured) ABG O2 Content ABG Base Excess Simon Test O2 Delivery Device Oxygen Flow Rate PEEP Sodium Potassium Chloride Carbon Dioxide Anion Gap BUN Creatinine POC Glucometer 129.46634 127.18815 97.05738 Random Glucose Lactic Acid Calcium Phosphorus Magnesium Total Bilirubin Direct Bilirubin AST ALT Alkaline Phosphatase Total Protein Albumin Urine Color Urine Appearance Urine pH Ur Specific [place] Urine Protein Urine Glucose (UA) Urine Ketones Urine Blood Urine Nitrite Urine Bilirubin Urine Urobilinogen Ur Leukocyte Esterase Blood Type Antibody Screen Crossmatch Spec Expiration Date 12/12/16 12/12/16 12/12/16 01:50 05:30 05:30 WBC 21.0 H RBC 3.18 L Hgb 8.4 L Hct 26.1 L MCV 82.2 MCH 26.5 MCHC 32.2 RDW 17.2 H Plt Count 299 MPV 8.1 Neutrophils % 85.1 H Lymphocytes % 6.3 L Monocytes % 6.6 Eosinophils % 1.5 D Basophils % 0.5 INR PTT (Actin FS) 88.5 H D Puncture Site ABG pH ABG pCO2 at Pt Temp ABG pO2 at Pt Temp ABG HCO3 ABG O2 Sat (Measured) ABG O2 Content ABG Base Excess Simon Test O2 Delivery Device Oxygen Flow Rate PEEP Sodium Potassium Chloride Carbon Dioxide Anion Gap BUN Creatinine POC Glucometer 117.92942 Random Glucose Lactic Acid Calcium Phosphorus Magnesium Total Bilirubin Direct Bilirubin AST ALT Alkaline Phosphatase Total Protein Albumin Urine Color Urine Appearance Urine pH Ur Specific [place] Urine Protein Urine Glucose (UA) Urine Ketones Urine Blood Urine Nitrite Urine Bilirubin Urine Urobilinogen Ur Leukocyte Esterase Blood Type Antibody Screen Crossmatch Spec Expiration Date 12/12/16 12/12/16 12/12/16 05:30 05:30 05:30 WBC RBC Hgb Hct MCV MCH MCHC RDW Plt Count MPV Neutrophils % Lymphocytes % Monocytes % Eosinophils % Basophils % INR 1.96 H PTT (Actin FS) Puncture Site ABG pH ABG pCO2 at Pt Temp ABG pO2 at Pt Temp ABG HCO3 ABG O2 Sat (Measured) ABG O2 Content ABG Base Excess Simon Test O2 Delivery Device Oxygen Flow Rate PEEP Sodium 136 Potassium 5.1 Chloride 104 Carbon Dioxide 18 L Anion Gap 14 BUN 75 H Creatinine 2.5 H POC Glucometer Random Glucose 90 D Lactic Acid 7.7 H* Calcium 8.9 Phosphorus 5.0 H Magnesium 2.7 H Total Bilirubin 5.9 H Direct Bilirubin 5.0 H AST 822 H D ALT 339 H Alkaline Phosphatase 459 H Total Protein 7.4 Albumin 1.4 L Urine Color Urine Appearance Urine pH Ur Specific [place] Urine Protein Urine Glucose (UA) Urine Ketones Urine Blood Urine Nitrite Urine Bilirubin Urine Urobilinogen Ur Leukocyte Esterase Blood Type Antibody Screen Crossmatch Spec Expiration Date 12/12/16 12/12/16 12/12/16 06:06 08:34 09:28 WBC RBC Hgb Hct MCV MCH MCHC RDW Plt Count MPV Neutrophils % Lymphocytes % Monocytes % Eosinophils % Basophils % INR PTT (Actin FS) Puncture Site ABG pH ABG pCO2 at Pt Temp ABG pO2 at Pt Temp ABG HCO3 ABG O2 Sat (Measured) ABG O2 Content ABG Base Excess Simon Test O2 Delivery Device Oxygen Flow Rate PEEP Sodium Potassium Chloride Carbon Dioxide Anion Gap BUN Creatinine POC Glucometer 110.46361 121.41535 135.60081 Random Glucose Lactic Acid Calcium Phosphorus Magnesium Total Bilirubin Direct Bilirubin AST ALT Alkaline Phosphatase Total Protein Albumin Urine Color Urine Appearance Urine pH Ur Specific [place] Urine Protein Urine Glucose (UA) Urine Ketones Urine Blood Urine Nitrite Urine Bilirubin Urine Urobilinogen Ur Leukocyte Esterase Blood Type Antibody Screen Crossmatch Spec Expiration Date 12/12/16 12/12/16 11:57 14:58 WBC RBC Hgb Hct MCV MCH MCHC RDW Plt Count MPV Neutrophils % Lymphocytes % Monocytes % Eosinophils % Basophils % INR PTT (Actin FS) Puncture Site ABG pH ABG pCO2 at Pt Temp ABG pO2 at Pt Temp ABG HCO3 ABG O2 Sat (Measured) ABG O2 Content ABG Base Excess Simon Test O2 Delivery Device Oxygen Flow Rate PEEP Sodium Potassium Chloride Carbon Dioxide Anion Gap BUN Creatinine POC Glucometer 134.49213 149.48282 Random Glucose Lactic Acid Calcium Phosphorus Magnesium Total Bilirubin Direct Bilirubin AST ALT Alkaline Phosphatase Total Protein Albumin Urine Color Urine Appearance Urine pH Ur Specific [place] Urine Protein Urine Glucose (UA) Urine Ketones Urine Blood Urine Nitrite Urine Bilirubin Urine Urobilinogen Ur Leukocyte Esterase Blood Type Antibody Screen Crossmatch Spec Expiration Date Active Medications Generic Name Dose Route Start Last Admin Trade Name Freq PRN Reason Stop Dose Admin Albumin Human 12.5 gm 12/12/16 15:15 Albumin Human 25% IVPB 12/12/16 16:46 Q30M KEITH Piperacillin Sod/Tazobactam Sod 50 mls @ 100 mls/hr 12/12/16 09:59 12/12/16 11: 15 Zosyn 3.375gm Ivpb (Pre-Docked) IVPB 100 mls/hr Q8H-IV KEITH Administration Sodium Bicarbonate 150 meq/ 1,150 mls @ 150 mls/hr 12/12/16 16:00 Dextrose IV Q10H KEITH Morphine Sulfate 1 mg 12/11/16 16:23 12/12/16 04:00 Morphine Injection - IVPUSH 1 mg Q4H PRN Administration PAIN ASSESSMENT/PLAN Neuro Altered mental status likely secondary to metabolic encephalopathy --on 12/10 began exhibiting signs of altered mental status; lethargic; unable to focus or answer questions, A&Ox2 --Tot bili 5.9, elevated transaminases; BUN 75; Cr 2.5; lactic acid 7.7; serum bicarb 18 Cardiovascular r/o ACS r/o endocarditis --initial concern for possible endocarditis given h/o drug abuse; started on Vanc and Zosyn --12/08 BAM: negative for thrombus or vegetations; antibiotics stopped (2 days given) --ACS r/o: troponins neg x 3; ECG not suggestive of acute ischemic event Pulmonary Shortness of breath --was started on heparin drip early in admission for possible PE; in view of acute liver failure and INR 1.96, will stop heparin drip --discussed with Sophia Sprague, [place], consensus to stop heparin drip at this time GI Liver mass Acute Liver failure Hypoglycemia --large right lobe masslike density; abdominal girth has increased significantly over past 24 hours --bili, transaminases, INR all trending up --D51/2+bicarb drip @150mL/hr for hypoglycemia ID Persistent leukocytosis --afebrile --blood culutres (12/06, 12/07, 12/11) NGTD --urine culture 12/10 negative --empiric Zosyn started 12/11 Renal Acute Kidney Injury Azotemia --baseline Cr 1.0; on admission Cr 1.5; now Cr 2.5 --BUN 29-->75 --UOP ~20 cc's/hr Psych Methadone dependency Dispo: Full Code. Pending transfer to [facility] ICU. Continues to require ICU level care. Visit type - Emergency Visit Emergency Visit: Yes ED Registration Date: 12/06/16 Care time: The patient presented to the Emergency Department on the above date and was hospitalized for further evaluation of their emergent condition. - New Patient This patient is new to me today: No - Critical Care Critical Care patient: Yes Total Critical Care Time (in minutes): 90 Critical Care Statement: The care of this patient involved high complexity decision making to prevent further life threatening deterioration of the patient 's condition and/or to evaluate & treat vital organ system(s) failure or risk of failure.
[2016-12-12] MEDS ORDERED: SODIUM BICARBONATE 8.4% - 150 MEQ in DEXTROSE 5%-WATER - 1,000 ML IV SCH (16:00)
--- NOTE | 2016-12-12 16:18 | PN ---
Physical Exam: SUBJECTIVE: Patient seen and examined. ICU transfer to [facility] pending. OBJECTIVE: Vital Signs Period Temp Pulse Resp BP Sys/Crain Pulse Ox Last 24 Hr 97.4 F-99 F 89-106 16-28 96-143/48-89 99-100 GENERAL/NEURO: The patient somnolent, slurring words. Denies pain. In no acute distress. LUNGS: Diminished breath sounds RLL. B/L wheezes, no crackles, no accessory muscle use. HEART: Regular rate and rhythm, S1, S2 without murmur, rub or gallop. ABDOMEN: Severely distended, tender, Hepatomagalyhypoactive bowel sounds EXTREMITIES: Mild bilateral edema resolving. Laboratory Results - last 24 hr 12/09/16 12/11/16 12/11/16 09:45 16:31 16:40 WBC RBC Hgb Hct MCV MCH MCHC RDW Plt Count MPV Neutrophils % Lymphocytes % Monocytes % Eosinophils % Basophils % INR PTT (Actin FS) Puncture Site Right radial ABG pH 7.30 L ABG pCO2 at Pt Temp 30.1 L ABG pO2 at Pt Temp 111.0 H D ABG HCO3 14.3 L* ABG O2 Sat (Measured) 97.6 ABG O2 Content 11.3 L ABG Base Excess -10.7 L* Simon Test Positive O2 Delivery Device Nasal Oxygen Flow Rate 2l PEEP 0.0 Sodium Potassium Chloride Carbon Dioxide Anion Gap BUN Creatinine POC Glucometer 98.44166 Random Glucose Lactic Acid Calcium Phosphorus Magnesium Total Bilirubin Direct Bilirubin AST ALT Alkaline Phosphatase Total Protein Albumin Urine Color Urine Appearance Urine pH Ur Specific [place] Urine Protein Urine Glucose (UA) Urine Ketones Urine Blood Urine Nitrite Urine Bilirubin Urine Urobilinogen Ur Leukocyte Esterase Blood Type A POSITIVE Antibody Screen Negative Crossmatch See Detail Spec Expiration Date 12/11/16 12/11/16 12/11/16 18:01 20:00 20:36 WBC RBC Hgb Hct MCV MCH MCHC RDW Plt Count MPV Neutrophils % Lymphocytes % Monocytes % Eosinophils % Basophils % INR PTT (Actin FS) Puncture Site ABG pH ABG pCO2 at Pt Temp ABG pO2 at Pt Temp ABG HCO3 ABG O2 Sat (Measured) ABG O2 Content ABG Base Excess Simon Test O2 Delivery Device Oxygen Flow Rate PEEP Sodium Potassium Chloride Carbon Dioxide Anion Gap BUN Creatinine POC Glucometer 99.85887 129.69449 Random Glucose Lactic Acid Calcium Phosphorus Magnesium Total Bilirubin Direct Bilirubin AST ALT Alkaline Phosphatase Total Protein Albumin Urine Color Adela Urine Appearance Slcloudy Urine pH 5.0 Ur Specific [place] 1.015 Urine Protein Negative Urine Glucose (UA) Negative Urine Ketones Negative Urine Blood Negative Urine Nitrite Negative Urine Bilirubin Negative Urine Urobilinogen 2.0 H Ur Leukocyte Esterase Negative Blood Type Antibody Screen Crossmatch Spec Expiration Date 12/11/16 12/11/16 12/12/16 21:25 22:45 01:50 WBC RBC Hgb Hct MCV MCH MCHC RDW Plt Count MPV Neutrophils % Lymphocytes % Monocytes % Eosinophils % Basophils % INR PTT (Actin FS) Puncture Site ABG pH ABG pCO2 at Pt Temp ABG pO2 at Pt Temp ABG HCO3 ABG O2 Sat (Measured) ABG O2 Content ABG Base Excess Simon Test O2 Delivery Device Oxygen Flow Rate PEEP Sodium Potassium Chloride Carbon Dioxide Anion Gap BUN Creatinine POC Glucometer 127.03116 97.29525 117.44561 Random Glucose Lactic Acid Calcium Phosphorus Magnesium Total Bilirubin Direct Bilirubin AST ALT Alkaline Phosphatase Total Protein Albumin Urine Color Urine Appearance Urine pH Ur Specific [place] Urine Protein Urine Glucose (UA) Urine Ketones Urine Blood Urine Nitrite Urine Bilirubin Urine Urobilinogen Ur Leukocyte Esterase Blood Type Antibody Screen Crossmatch Spec Expiration Date 12/12/16 12/12/16 12/12/16 05:30 05:30 05:30 WBC 21.0 H RBC 3.18 L Hgb 8.4 L Hct 26.1 L MCV 82.2 MCH 26.5 MCHC 32.2 RDW 17.2 H Plt Count 299 MPV 8.1 Neutrophils % 85.1 H Lymphocytes % 6.3 L Monocytes % 6.6 Eosinophils % 1.5 D Basophils % 0.5 INR 1.96 H PTT (Actin FS) 88.5 H D Puncture Site ABG pH ABG pCO2 at Pt Temp ABG pO2 at Pt Temp ABG HCO3 ABG O2 Sat (Measured) ABG O2 Content ABG Base Excess Simon Test O2 Delivery Device Oxygen Flow Rate PEEP Sodium Potassium Chloride Carbon Dioxide Anion Gap BUN Creatinine POC Glucometer Random Glucose Lactic Acid Calcium Phosphorus Magnesium Total Bilirubin Direct Bilirubin AST ALT Alkaline Phosphatase Total Protein Albumin Urine Color Urine Appearance Urine pH Ur Specific [place] Urine Protein Urine Glucose (UA) Urine Ketones Urine Blood Urine Nitrite Urine Bilirubin Urine Urobilinogen Ur Leukocyte Esterase Blood Type Antibody Screen Crossmatch Spec Expiration Date 12/12/16 12/12/16 12/12/16 05:30 05:30 06:06 WBC RBC Hgb Hct MCV MCH MCHC RDW Plt Count MPV Neutrophils % Lymphocytes % Monocytes % Eosinophils % Basophils % INR PTT (Actin FS) Puncture Site ABG pH ABG pCO2 at Pt Temp ABG pO2 at Pt Temp ABG HCO3 ABG O2 Sat (Measured) ABG O2 Content ABG Base Excess Simon Test O2 Delivery Device Oxygen Flow Rate PEEP Sodium 136 Potassium 5.1 Chloride 104 Carbon Dioxide 18 L Anion Gap 14 BUN 75 H Creatinine 2.5 H POC Glucometer 110.76462 Random Glucose 90 D Lactic Acid 7.7 H* Calcium 8.9 Phosphorus 5.0 H Magnesium 2.7 H Total Bilirubin 5.9 H Direct Bilirubin 5.0 H AST 822 H D ALT 339 H Alkaline Phosphatase 459 H Total Protein 7.4 Albumin 1.4 L Urine Color Urine Appearance Urine pH Ur Specific [place] Urine Protein Urine Glucose (UA) Urine Ketones Urine Blood Urine Nitrite Urine Bilirubin Urine Urobilinogen Ur Leukocyte Esterase Blood Type Antibody Screen Crossmatch Spec Expiration Date 12/12/16 12/12/16 12/12/16 08:34 09:28 11:57 WBC RBC Hgb Hct MCV MCH MCHC RDW Plt Count MPV Neutrophils % Lymphocytes % Monocytes % Eosinophils % Basophils % INR PTT (Actin FS) Puncture Site ABG pH ABG pCO2 at Pt Temp ABG pO2 at Pt Temp ABG HCO3 ABG O2 Sat (Measured) ABG O2 Content ABG Base Excess Simon Test O2 Delivery Device Oxygen Flow Rate PEEP Sodium Potassium Chloride Carbon Dioxide Anion Gap BUN Creatinine POC Glucometer 121.14725 135.53071 134.15295 Random Glucose Lactic Acid Calcium Phosphorus Magnesium Total Bilirubin Direct Bilirubin AST ALT Alkaline Phosphatase Total Protein Albumin Urine Color Urine Appearance Urine pH Ur Specific [place] Urine Protein Urine Glucose (UA) Urine Ketones Urine Blood Urine Nitrite Urine Bilirubin Urine Urobilinogen Ur Leukocyte Esterase Blood Type Antibody Screen Crossmatch Spec Expiration Date 12/12/16 14:58 WBC RBC Hgb Hct MCV MCH MCHC RDW Plt Count MPV Neutrophils % Lymphocytes % Monocytes % Eosinophils % Basophils % INR PTT (Actin FS) Puncture Site ABG pH ABG pCO2 at Pt Temp ABG pO2 at Pt Temp ABG HCO3 ABG O2 Sat (Measured) ABG O2 Content ABG Base Excess Simon Test O2 Delivery Device Oxygen Flow Rate PEEP Sodium Potassium Chloride Carbon Dioxide Anion Gap BUN Creatinine POC Glucometer 149.07120 Random Glucose Lactic Acid Calcium Phosphorus Magnesium Total Bilirubin Direct Bilirubin AST ALT Alkaline Phosphatase Total Protein Albumin Urine Color Urine Appearance Urine pH Ur Specific [place] Urine Protein Urine Glucose (UA) Urine Ketones Urine Blood Urine Nitrite Urine Bilirubin Urine Urobilinogen Ur Leukocyte Esterase Blood Type Antibody Screen Crossmatch Spec Expiration Date Active Medications Generic Name Dose Route Start Last Admin Trade Name Freq PRN Reason Stop Dose Admin Albumin Human 12.5 gm 12/12/16 15:15 Albumin Human 25% IVPB 12/12/16 16:46 Q30M KEITH Piperacillin Sod/Tazobactam Sod 50 mls @ 100 mls/hr 12/12/16 09:59 12/12/16 11: 15 Zosyn 3.375gm Ivpb (Pre-Docked) IVPB 100 mls/hr Q8H-IV KEITH Administration Sodium Bicarbonate 150 meq/ 1,150 mls @ 150 mls/hr 12/12/16 16:00 Dextrose IV Q10H KEITH Morphine Sulfate 1 mg 12/11/16 16:23 12/12/16 04:00 Morphine Injection - IVPUSH 1 mg Q4H PRN Administration PAIN ASSESSMENT/PLAN: GI - on empiric anticoagulation - V/Q scan although less likely PE - suspect diaphragmatic compression and metabolic acidosis contributing to dyspnea - monitor H/H - monitor urine output, creatinine - continue IVF, bicarb - for transfer to tertiary care center. Just called [facility] transfer center they said " we keep trying to call our ICU no one in answering right now." Gave them a direct line for us to be reached at. - poor prognosis Visit type - Emergency Visit Emergency Visit: No - New Patient This patient is new to me today: Yes Date on this admission: 12/12/16 - Critical Care Critical Care patient: Yes Total Critical Care Time (in minutes): 30 Critical Care Statement: The care of this patient involved high complexity decision making to prevent further life threatening deterioration of the patient 's condition and/or to evaluate & treat vital organ system(s) failure or risk of failure.
[2016-12-12] MEDS: ALBUMIN HUMAN 25% 12.5 GM/50 ML VIAL IVPB SCH ×3 (17:19→18:19)
[2016-12-12] MEDS ORDERED: DEXTROSE IV SCH ×2 (19:30→19:42)
[2016-12-12] MEDS ORDERED: [UNRECOGNIZED DRUG - OTHER] IV SCH ×2 (19:30→19:42)
[2016-12-12] MEDS ORDERED: SODIUM BICARBONATE IV SCH ×2 (19:30→19:42)
[2016-12-12] MEDS ORDERED: morphine CARPU-JECT 2 MG/1 ML DISP.SYRIN ONE (22:40)
[2016-12-12] MEDS ORDERED: HYDROmorphone HCL CARPU-JECT 1 MG/1 ML DISP.SYRIN ONE (23:18)
[2016-12-12] MEDS ORDERED: HYDROmorphone HCL CARPU-JECT 1 MG/1 ML DISP.SYRIN IVPUSH ONE ×2 (23:20→23:36)
[2016-12-13] MEDS: morphine CARPU-JECT 2 MG/1 ML DISP.SYRIN IVPUSH PRN ×4 (00:16→08:45)
--- NOTE | 2016-12-13 00:20 | HOSP ---
Physical Examination Vital Signs: Vital Signs Temperature 97.4 F L 12/12/16 12:59 Pulse Rate 101 H 12/12/16 20:00 Respiratory Rate 21 12/12/16 20:00 Blood Pressure 108/71 12/12/16 20:00 O2 Sat by Pulse Oximetry (%) 96 12/12/16 21:00 Labs: CBC, BMP 12/12/16 05:30 12/12/16 05:30 Hospitalist Encounter Assessment: RN called and mentioned that patient has been complaining of abdominal pain. Patient had already received 3mg of IV Morphine and 1mg of Dilaudid. Went to examine the patient with Dr. Khoury. Patient mentioned she has abdominal pain, diffusely located, not relieved by pain medication. Patient mentions that she hasn't passed flatus. Vitals: BP- 108/71 mmHg; P- 83bpm; RR- 18; Temp- Afebrile General: Morbidly obese female, awake, alert, in no acute distress Lungs: B/L decreased breath sounds, no wheeze. CVS: Regular, rate and rhythm, no murmurs. Abdomen: Distended, tender, hypoactive bowel sounds, organomegaly or masses couldn't be appreciated. Extremities: B/L pitting edema. A/P: Patient is a 61 year-old female with a PMH significant for HTN, HLD, basal cell carcinoma, chronic lower extremity edema, and methadone dependency x 15 years; PSH significant for partial hysterectomy, bilateral knee replacement, multiple skin grafts for valente (face extremities) admitted for evaluation of liver mass and AMS. # Abominal tenderness Ordered Abdominal X-ray stat. IV Dialudid one time dose given Case discussed with Dr. Khoury.
--- NOTE | 2016-12-13 01:40 | HOSP ---
Subjective - Review of Symptoms Events since last encounter: Notified by RN that the patient's pain was not being controlled Abdominal Xray was ordered concern for bowel obstruction Arrived to bedside, patient is asleep, arousable to verbal and tactile stimulus Patient denies abdominal pain at present, likely secondary to pain medication given earlier by the nurse VSCarlita Abd Xray-pending Patient pending transfer to [facility] Palliative Care Consult Will Continue to monitor 03:25- Notified by RN that the patient is complaining of abdominal pain, after being medicated for pain and breakthrough pain. Ordered Dilaudid x1 now Recommend Pain Mgmt Consult- TRAVEL REGISTERED NURSE ONCOLOGY Pump or Fentanyl 0620- Notified by RN that the patient is wheezing, ordered Duoneb x1 Gastrointestinal: Yes: Abdominal Pain Physical Examination Vital Signs: Vital Signs Temperature 97.4 F L 12/12/16 12:59 Pulse Rate 101 H 12/12/16 20:00 Respiratory Rate 21 12/12/16 20:00 Blood Pressure 108/71 12/12/16 20:00 O2 Sat by Pulse Oximetry (%) 96 12/12/16 21:00 Constitutional: Yes: No Distress Eyes: Yes: PERRL HENT: Yes: WNL, Atraumatic, Normocephalic Neck: Yes: WNL, Supple, Trachea Midline Cardiovascular: Yes: WNL, Regular Rate and Rhythm, S1, S2 Respiratory: Yes: Diminished (bilaterally) Gastrointestinal: Yes: Abdomen, Obese, Distention, Hypoactive Bowel Sounds Edema: Yes (Anasarca) Integumentary: Yes: Other (multiple skin grafts to extremties/face) Neurological: Yes: Lethargy Labs: CBC, BMP 12/12/16 05:30 12/12/16 05:30 Laboratory Results - last 24 hr Microbiology 12/11/16 14:55 Blood - Peripheral Venous Blood Culture - Preliminary NO GROWTH OBTAINED AFTER 24 HOURS, INCUBATION TO CONTINUE FOR 4 DAYS. 12/11/16 14:45 Blood - Peripheral Venous Blood Culture - Preliminary NO GROWTH OBTAINED AFTER 24 HOURS, INCUBATION TO CONTINUE FOR 4 DAYS. 12/07/16 12:00 Blood - Peripheral Venous Blood Culture - Final NO GROWTH AFTER 5 DAYS INCUBATION 12/07/16 10:34 Blood - Peripheral Venous Blood Culture - Final NO GROWTH AFTER 5 DAYS INCUBATION 12/06/16 14:45 Blood - Peripheral Venous Blood Culture - Final NO GROWTH AFTER 5 DAYS INCUBATION 12/06/16 14:45 Blood - Peripheral Venous Blood Culture - Final NO GROWTH AFTER 5 DAYS INCUBATION 12/10/16 11:45 Urine - Urine Clean Catch Urine Culture - Final NO GROWTH OBTAINED 12/06/16 01:00 Urine - Urine Clean Catch Urine Culture - Final Contaminated: Please Repeat 12/12/16 12/12/16 06:06 08:34 WBC RBC Hgb Hct MCV MCH MCHC RDW Plt Count MPV Neutrophils % Lymphocytes % Monocytes % Eosinophils % Basophils % INR PTT (Actin FS) Sodium Potassium Chloride Carbon Dioxide Anion Gap BUN Creatinine POC Glucometer 110.39974 121.33625 Random Glucose Lactic Acid Calcium Phosphorus Magnesium Total Bilirubin Direct Bilirubin AST ALT Alkaline Phosphatase Total Protein Albumin Blood Type Antibody Screen Crossmatch Spec Expiration Date 12/12/16 12/12/16 12/12/16 09:28 11:57 14:58 WBC RBC Hgb Hct MCV MCH MCHC RDW Plt Count MPV Neutrophils % Lymphocytes % Monocytes % Eosinophils % Basophils % INR PTT (Actin FS) Sodium Potassium Chloride Carbon Dioxide Anion Gap BUN Creatinine POC Glucometer 135.91766 134.60927 149.19236 Random Glucose Lactic Acid Calcium Phosphorus Magnesium Total Bilirubin Direct Bilirubin AST ALT Alkaline Phosphatase Total Protein Albumin Blood Type Antibody Screen Crossmatch Spec Expiration Date 12/12/16 12/12/16 16:00 22:48 WBC RBC Hgb Hct MCV MCH MCHC RDW Plt Count MPV Neutrophils % Lymphocytes % Monocytes % Eosinophils % Basophils % INR PTT (Actin FS) 71.4 H Sodium Potassium Chloride Carbon Dioxide Anion Gap BUN Creatinine POC Glucometer 119.91519 Random Glucose Lactic Acid Calcium Phosphorus Magnesium Total Bilirubin Direct Bilirubin AST ALT Alkaline Phosphatase Total Protein Albumin Blood Type Antibody Screen Crossmatch Spec Expiration Date Intake & Output 12/10/16 12/11/16 12/12/16 12/13/16 23:59 23:59 23:59 23:59 Intake Total 952 1952 1352 Output Total 566 711 4152 Balance 452 1202 1777 Weight 104.236 kg 106.322 kg 106.339 kg Critical Care Total Critical Care Time (in minutes): 31 Critical Care Statement: The care of this patient involved high complexity decision making to prevent further life threatening deterioration of the patient 's condition and/or to evaluate & treat vital organ system(s) failure or risk of failure.
[2016-12-13] MEDS: PIPERACILLIN/TAZOB 3.375 GM 50 ML IVPB SCH ×3 (03:00→17:35)
[2016-12-13] MEDS ORDERED: HYDROmorphone HCL CARPU-JECT 1 MG/1 ML DISP.SYRIN IVPUSH ONE (03:22)
[2016-12-13 06:13] LABS: MCH 26.5 pg (25.7-33.7); MCHC 32.1 g/dl (32.0-36.0); MEAN CELL VOLUME 82.7 fl (80-96); MEAN PLT VOLUME 7.4 fl (7.5-11.1); PLATELET COUNT 223 K/MM3 (134-434); RDW 17.2 % (11.6-15.6); WHITE BLOOD COUNT 19.1 K/mm3 (4.0-10.0)
[2016-12-13] MEDS ORDERED: ALBUTEROL SO4 0.083% IH SOL 2.5 MG/3 ML VIAL.NEB. NEB ONE (06:16)
[2016-12-13] MEDS ORDERED: ALBUTEROL SO4 2.5/IPRATROPIUM 0.5 INH SOL 3 ML VIAL.NEB. NEB ONE (06:20)
[2016-12-13 06:48] LABS: ALBUMIN 2.1 g/dl (3.4-5.0); ANION GAP 19 (8-16); BILIRUBIN,TOTAL 7.2 mg/dL (0.2-1.0); CALCIUM 8.3 mg/dL (8.5-10.1); CO2 20 mmol/L (21-32); CREATININE 3.6 mg/dL (0.55-1.02); GLUCOSE,RANDOM 65 mg/dL (74-106); TOT PROT 7.3 g/dl (6.4-8.2)
[2016-12-13 06:54] LABS: ALK PHOS 524 U/L (45-117); C-REACTIVE PROTEIN 24.2 MG/DL (0.00-0.3)
[2016-12-13 07:43] LABS: SGPT/ALT 741 U/L (12-78)
[2016-12-13 07:44] LABS: URIC ACID 16.4 mg/dL (2.6-7.2)
--- NOTE | 2016-12-13 08:02 | PN ---
Physical Exam: SUBJECTIVE: Patient seen and examined. In pain this morning,, lethargic, short of breath. Still waiting for ICU bed at [facility] re: Dr. Gandhi. PAtient Intubated today and Central line for access. Will call [facility] again. OBJECTIVE: Vital Signs Period Temp Pulse Resp BP Sys/Crain Pulse Ox Last 24 Hr 97.4 F-97.6 F 90-101 17-27 103-124/57-89 96-99 Gen: lethargic, respiratory distress Heart: RRR Lung: Bilateral scattered rhonchi Abd: grossly distended, hepatomegaly Ext: (+) edema Laboratory Results - last 24 hr 12/09/16 12/12/16 12/12/16 09:45 06:06 08:34 WBC RBC Hgb Hct MCV MCH MCHC RDW Plt Count MPV Neutrophils % Lymphocytes % PTT (Actin FS) Sodium Potassium Chloride Carbon Dioxide Anion Gap BUN Creatinine Creat Clearance w eGFR POC Glucometer 110.00151 121.54376 Random Glucose Lactic Acid Uric Acid Calcium Total Bilirubin ALT Alkaline Phosphatase Ammonia C-Reactive Protein Total Protein Albumin Blood Type A POSITIVE Antibody Screen Negative Crossmatch See Detail Spec Expiration Date 12/12/16 12/12/16 12/12/16 09:28 11:57 14:58 WBC RBC Hgb Hct MCV MCH MCHC RDW Plt Count MPV Neutrophils % Lymphocytes % PTT (Actin FS) Sodium Potassium Chloride Carbon Dioxide Anion Gap BUN Creatinine Creat Clearance w eGFR POC Glucometer 135.08103 134.95208 149.93183 Random Glucose Lactic Acid Uric Acid Calcium Total Bilirubin ALT Alkaline Phosphatase Ammonia C-Reactive Protein Total Protein Albumin Blood Type Antibody Screen Crossmatch Spec Expiration Date 12/12/16 12/12/16 12/13/16 16:00 22:48 05:00 WBC RBC Hgb Hct MCV MCH MCHC RDW Plt Count MPV Neutrophils % Lymphocytes % PTT (Actin FS) 71.4 H 33.5 D Sodium Potassium Chloride Carbon Dioxide Anion Gap BUN Creatinine Creat Clearance w eGFR POC Glucometer 119.38972 Random Glucose Lactic Acid Uric Acid Calcium Total Bilirubin ALT Alkaline Phosphatase Ammonia C-Reactive Protein Total Protein Albumin Blood Type Antibody Screen Crossmatch Spec Expiration Date 12/13/16 12/13/16 12/13/16 05:00 05:00 05:00 WBC 19.1 H RBC 2.83 L Hgb 7.5 L D Hct 23.4 L MCV 82.7 MCH 26.5 MCHC 32.1 RDW 17.2 H Plt Count 223 D MPV 7.4 L Neutrophils % Y Lymphocytes % Y PTT (Actin FS) Sodium 135 L Potassium 5.6 H Chloride 96 L Carbon Dioxide 20 L Anion Gap 19 H BUN 81 H Creatinine 3.6 H D Creat Clearance w eGFR 12.85 POC Glucometer Random Glucose 65 L D Lactic Acid Uric Acid 16.4 H* D Calcium 8.3 L Total Bilirubin 7.2 H D ALT 741 H D Alkaline Phosphatase 524 H Ammonia 31.44 C-Reactive Protein 24.2 H D Total Protein 7.3 Albumin 2.1 L D Blood Type Antibody Screen Crossmatch Spec Expiration Date 12/13/16 12/13/16 05:00 05:45 WBC RBC Hgb Hct MCV MCH MCHC RDW Plt Count MPV Neutrophils % Lymphocytes % PTT (Actin FS) Sodium Potassium Chloride Carbon Dioxide Anion Gap BUN Creatinine Creat Clearance w eGFR POC Glucometer 107.42217 Random Glucose Lactic Acid 12.1 H* Uric Acid Calcium Total Bilirubin ALT Alkaline Phosphatase Ammonia C-Reactive Protein Total Protein Albumin Blood Type Antibody Screen Crossmatch Spec Expiration Date Active Medications Generic Name Dose Route Start Last Admin Trade Name Freq PRN Reason Stop Dose Admin Piperacillin Sod/Tazobactam Sod 50 mls @ 100 mls/hr 12/12/16 09:59 12/13/16 03: 00 Zosyn 3.375gm Ivpb (Pre-Docked) IVPB 100 mls/hr Q8H-IV KEITH Administration Sodium Bicarbonate 150 meq/ 1,150 mls @ 150 mls/hr 12/12/16 19:42 12/12/16 21: 37 Dextrose/Sodium Chloride IV 150 mls/hr ASDIR KEITH Administration Morphine Sulfate 1 mg 12/11/16 16:23 12/13/16 07:11 Morphine Injection - IVPUSH 1 mg Q4H PRN Administration PAIN Morphine Sulfate 2 mg 12/12/16 22:38 12/13/16 00:16 Morphine Injection - IVPUSH 2 mg Q4H PRN Administration Pain >6 ASSESSMENT/PLAN: 61 y/o patient with rt. lobe, liver mass, presented with worsening liver function/hepato/renal syndrome Resp: - Intubation with propofol sedation GI: -NG tube placement Renal: - Renal function worsening, - Continue Sodium Bicarb IV, give NG if hospital runs out of supply - Continue D51/2 with 75meq - Monitor Urine Output, creatinine, LACTATE - surgical consult called called for distended abdomen at the Request of Dr. Cortes Visit type - Emergency Visit Emergency Visit: No - New Patient This patient is new to me today: Yes Date on this admission: 12/13/16 - Critical Care Critical Care patient: Yes Total Critical Care Time (in minutes): 150 Critical Care Statement: The care of this patient involved high complexity decision making to prevent further life threatening deterioration of the patient 's condition and/or to evaluate & treat vital organ system(s) failure or risk of failure.
[2016-12-13] MEDS ORDERED: morphine CARPU-JECT 4 MG/1 ML DISP.SYRIN IVPUSH PRN (09:10)
--- NOTE | 2016-12-13 09:14 | PN ---
Physical Exam: SUBJECTIVE: Patient seen and examined in ICU. In pain. Agitated. OBJECTIVE: Vital Signs Period Temp Pulse Resp BP Sys/Crain Pulse Ox Last 24 Hr 97.4 F-97.6 F 90-101 17-27 103-124/57-82 96-99 GENERAL/NEURO: The patient is in severe distress secondary to pain. Poorly responsive. LUNGS: Tachypnic, mild wheezing, labored breathing. HEART: Regular rate and rhythm, S1, S2 without murmur, rub or gallop. ABDOMEN: Severely distended, guarding EXTREMITIES: Mild bilateral LE edema Laboratory Results - last 24 hr 12/09/16 12/12/16 12/12/16 09:45 09:28 11:57 WBC RBC Hgb Hct MCV MCH MCHC RDW Plt Count MPV Neutrophils % Lymphocytes % PTT (Actin FS) Sodium Potassium Chloride Carbon Dioxide Anion Gap BUN Creatinine Creat Clearance w eGFR POC Glucometer 135.01775 134.33128 Random Glucose Lactic Acid Uric Acid Calcium Total Bilirubin ALT Alkaline Phosphatase Ammonia C-Reactive Protein Total Protein Albumin Blood Type A POSITIVE Antibody Screen Negative Crossmatch See Detail Spec Expiration Date 12/12/16 12/12/16 12/12/16 14:58 16:00 22:48 WBC RBC Hgb Hct MCV MCH MCHC RDW Plt Count MPV Neutrophils % Lymphocytes % PTT (Actin FS) 71.4 H Sodium Potassium Chloride Carbon Dioxide Anion Gap BUN Creatinine Creat Clearance w eGFR POC Glucometer 149.68634 119.38372 Random Glucose Lactic Acid Uric Acid Calcium Total Bilirubin ALT Alkaline Phosphatase Ammonia C-Reactive Protein Total Protein Albumin Blood Type Antibody Screen Crossmatch Spec Expiration Date 12/13/16 12/13/16 12/13/16 05:00 05:00 05:00 WBC 19.1 H RBC 2.83 L Hgb 7.5 L D Hct 23.4 L MCV 82.7 MCH 26.5 MCHC 32.1 RDW 17.2 H Plt Count 223 D MPV 7.4 L Neutrophils % Y Lymphocytes % Y PTT (Actin FS) 33.5 D Sodium 135 L Potassium 5.6 H Chloride 96 L Carbon Dioxide 20 L Anion Gap 19 H BUN 81 H Creatinine 3.6 H D Creat Clearance w eGFR 12.85 POC Glucometer Random Glucose 65 L D Lactic Acid Uric Acid 16.4 H* D Calcium 8.3 L Total Bilirubin 7.2 H D ALT 741 H D Alkaline Phosphatase 524 H Ammonia C-Reactive Protein 24.2 H D Total Protein 7.3 Albumin 2.1 L D Blood Type Antibody Screen Crossmatch Spec Expiration Date 12/13/16 12/13/16 12/13/16 05:00 05:00 05:45 WBC RBC Hgb Hct MCV MCH MCHC RDW Plt Count MPV Neutrophils % Lymphocytes % PTT (Actin FS) Sodium Potassium Chloride Carbon Dioxide Anion Gap BUN Creatinine Creat Clearance w eGFR POC Glucometer 107.35203 Random Glucose Lactic Acid 12.1 H* Uric Acid Calcium Total Bilirubin ALT Alkaline Phosphatase Ammonia 31.44 C-Reactive Protein Total Protein Albumin Blood Type Antibody Screen Crossmatch Spec Expiration Date Active Medications Generic Name Dose Route Start Last Admin Trade Name Freq PRN Reason Stop Dose Admin Piperacillin Sod/Tazobactam Sod 50 mls @ 100 mls/hr 12/12/16 09:59 12/13/16 03: 00 Zosyn 3.375gm Ivpb (Pre-Docked) IVPB 100 mls/hr Q8H-IV KEITH Administration Sodium Bicarbonate 150 meq/ 1,150 mls @ 150 mls/hr 12/12/16 19:42 12/12/16 21: 37 Dextrose/Sodium Chloride IV 150 mls/hr ASDIR KEITH Administration Morphine Sulfate 3 mg 12/13/16 09:10 Morphine Injection - IVPUSH Q4H PRN Pain >6 Sodium Bicarbonate 650 mg 12/13/16 10:00 Sodium Bicarbonate - PO BID KEITH ASSESSMENT/PLAN 61 year-old female with a PMH significant for HTN, HLD, basal cell carcinoma, chronic lower extremity edema, and methadone dependency 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 Respiratory failure Metabolic Acidosis Metabolic encephalopathy --intubated earlier today Liver mass Acute Liver failure --Total bili 7.2, transaminases continue to climb, INR 2.55 --continue D51/2+bicarb drip Persistent leukocytosis --afebrile --blood culutres (12/06, 12/07, 12/11) NGTD --urine culture 12/10 negative --continue empiric Zosyn Acute Kidney Injury/Renal Failure --baseline Cr 1.0; on admission Cr 1.5; now Cr 3.6 --making ~10cc's per hour urine Dispo: Full Code. Pending transfer to [facility]. Continues to require ICU level care. Visit type - Emergency Visit Emergency Visit: Yes ED Registration Date: 12/06/16 Care time: The patient presented to the Emergency Department on the above date and was hospitalized for further evaluation of their emergent condition. - New Patient This patient is new to me today: No - Critical Care Critical Care patient: Yes Total Critical Care Time (in minutes): 90 Critical Care Statement: The care of this patient involved high complexity decision making to prevent further life threatening deterioration of the patient 's condition and/or to evaluate & treat vital organ system(s) failure or risk of failure.
[2016-12-13] MEDS: SODIUM BICARBONATE 650 MG TABLET PO SCH ×2 (09:25→22:33)
[2016-12-13 10:10] LABS: TOTAL CELLS COUNTED 100
[2016-12-13 10:11] LABS: METAMYELOCYTE 3 % (0-2); MYELOCYTE 2 % (0-2)
[2016-12-13 11:07] LABS: ARTERIAL BLD GAS O2 SATURATION 81.4 % (90-98.9); ARTERIAL BLOOD GAS BASE EXCESS -15.1 meq/l (-2-2); ARTERIAL BLOOD GAS HCO3 12.4 meq/L (22-26)
[2016-12-13] MEDS ORDERED: HYDROmorphone HCL CARPU-JECT 2 MG/1 ML DISP.SYRIN IVPUSH ONE (11:08)
[2016-12-13 11:18] LABS: ALLENS TEST POSITIVE; ART PUNCT SITE LEFT RADIAL; LPM/O2% 2L; PT. ON O2? YES; TYPE OF O2 NASAL
[2016-12-13] MEDS ORDERED: LORazepam 2 MG/ML SDV VIAL IVPUSH ONE (11:35)
[2016-12-13] MEDS ORDERED: LORazepam 2 MG/ML SDV VIAL ONE (11:36)
[2016-12-13] MEDS ORDERED: PROPOFOL 100 ML ONE ×2 (13:01→21:44)
[2016-12-13] MEDS ORDERED: MIDAZOLAM HCL 5 MG/1 ML Single Dose Vial ONE (13:05)
[2016-12-13 13:15] LABS: INR 2.55 (0.82-1.09); PROTHROMBIN TIME (PATIENT) 28.6 SEC (9.98-11.88)
[2016-12-13] MEDS ORDERED: MIDAZOLAM HCL 5 MG/1 ML Single Dose Vial IVPUSH ONE (13:21)
--- NOTE | 2016-12-13 13:27 | PN ---
Progress Note (short form) - Note Progress Note: Patient seen and examined at bedside. Unable to be aroused , just then received ativan and dilaudid reportedly for pain and agitation. general: lethargic Cor: RSR, No murmurs, No gallops Lungs: clear from anterior auscultation Abd: distended abdomen, difficult to appreciate organomegaly Ext:No significant edema Skin: healed burned like scars present Temp Pulse Resp BP Pulse Ox 97.5 F L 90 20 99/69 96 12/13/16 10:00 12/13/16 12:00 12/13/16 12:00 12/13/16 12:00 12/12/16 21:00 CBC, BMP 12/13/16 05:00 12/13/16 05:00 INR, PTT INR 1.96 (0.82-1.09) H 12/12/16 05:30 Current Medications Generic Name Dose Route Start Last Admin Trade Name Freq PRN Reason Stop Dose Admin Piperacillin Sod/Tazobactam Sod 50 mls @ 100 mls/hr 12/12/16 09:59 12/13/16 09: 24 Zosyn 3.375gm Ivpb (Pre-Docked) IVPB 100 mls/hr Q8H-IV KEITH Administration Sodium Bicarbonate 150 meq/ 1,150 mls @ 150 mls/hr 12/12/16 19:42 12/12/16 21: 37 Dextrose/Sodium Chloride IV 150 mls/hr ASDIR KEITH Administration Morphine Sulfate 3 mg 12/13/16 09:10 12/13/16 12:56 Morphine Injection - IVPUSH 3 mg Q4H PRN Administration Pain >6 Sodium Bicarbonate 650 mg 12/13/16 10:00 12/13/16 09:25 Sodium Bicarbonate - PO 650 mg BID KEITH Administration 61 y/o patient with rt. lobe, liver mass, presented with worsening liver function/hepato/renal syndrome Hepatic mass, suspicion for Lymphoproliferative disorder Liver failure [place] Hepatorenal Coagulopathy Metabolic acidosis/AMS ?Tumor Lysis chart reviewed in detail, labs reviewed. f/u LDH, uric acid sent flow cytometry of the peripheral blood. CEA/CA19.9 --nl AFP -mildly elevated hep c/Hep. BsAg neg. from [facility] HIV negative repeat coag studies, PT/INR/fibrinogen, will need biopsy to determine the etiology. Pending results might need to give Vit K/FFP prior to procedures. discussed with ICU team( attending/resident/RN). [facility] ICU team ( ) and Oncology at [facility] () aware of the case. requesting to speak to ,message conveyed. Discussed with the sister at bedside.
[2016-12-13 13:49] LABS: SGOT/AST 5078 U/L (15-37)
[2016-12-13 13:50] LABS: LDH 8002 U/L (84-246)
--- NOTE | 2016-12-13 14:10 | PN ---
Teaching Attending Note Name of Resident: Daniel Zaldivar ATTENDING PHYSICIAN STATEMENT I saw and evaluated the patient. I reviewed the resident's note and discussed the case with the resident. I agree with the resident's findings and plan as documented. SUBJECTIVE: Patient seen and examined in the ICU. More lethargic and poorly responsive. Breathing is labored. Family at the bedside. Agree to intubation with CVC placement. OBJECTIVE: Intake & Output 12/10/16 12/11/16 12/12/16 12/13/16 23:59 23:59 23:59 23:59 Intake Total 952 1952 2852 1850 Output Total 343 693 6102 200 Balance 452 1202 1777 1650 Weight 229 lb 12.8 oz 234 lb 6.4 oz 234 lb 7 oz 246 lb 11.156 oz Last Vital Signs Temp Pulse Resp BP Pulse Ox 97.5 F L 87 27 H 99/69 100 12/13/16 10:00 12/13/16 13:44 12/13/16 13:20 12/13/16 12:00 12/13/16 13:44 Active Medications Piperacillin Sod/Tazobactam Sod (Zosyn 3.375gm Ivpb (Pre-Docked)) 50 mls @ 100 mls/hr IVPB Q8H-IV KEITH Last Admin: 12/13/16 09:24 Dose: 100 mls/hr Sodium Bicarbonate 150 meq/ (Dextrose/Sodium Chloride) 1,150 mls @ 150 mls/hr IV ASDIR KEITH Last Admin: 12/12/16 21:37 Dose: 150 mls/hr Propofol (Diprivan -) 100 mls @ 3.357 mls/hr IVPB TITR KEITH; 5 MCG/KG/MIN PRN Reason: Protocol Midazolam HCl (Versed -) 5 mg IVPUSH ONCE ONE Stop: 12/13/16 13:22 Morphine Sulfate (Morphine Injection -) 3 mg IVPUSH Q4H PRN PRN Reason: Pain >6 Last Admin: 12/13/16 12:56 Dose: 3 mg Sodium Bicarbonate (Sodium Bicarbonate -) 650 mg PO BID KEITH Last Admin: 12/13/16 09:25 Dose: 650 mg Gen: lethargic, respiratory distress Heart: RRR Lung: Bilateral scattered rhonchi Abd: grossly distended, hepatomegaly Ext: (+) edema Laboratory Results - last 24 hr 12/12/16 12/12/16 12/12/16 14:58 16:00 22:48 WBC RBC Hgb Hct MCV MCH MCHC RDW Plt Count MPV Total Counted Neutrophils % Neutrophils % (Manual) Band Neuts % (Manual) Lymphocytes % Lymphocytes % (Manual) Monocytes % (Manual) Eosinophils % (Manual) Myelocytes % (Man) INR PTT (Actin FS) 71.4 H Fibrinogen Puncture Site ABG pH ABG pCO2 at Pt Temp ABG pO2 at Pt Temp ABG HCO3 ABG O2 Sat (Measured) ABG O2 Content ABG Base Excess Simon Test O2 Delivery Device Oxygen Flow Rate PEEP Sodium Potassium Chloride Carbon Dioxide Anion Gap BUN Creatinine Creat Clearance w eGFR POC Glucometer 149.50746 119.57891 Random Glucose Lactic Acid Uric Acid Calcium Total Bilirubin ALT Alkaline Phosphatase Ammonia C-Reactive Protein Total Protein Albumin 12/13/16 12/13/16 12/13/16 05:00 05:00 05:00 WBC 19.1 H RBC 2.83 L Hgb 7.5 L D Hct 23.4 L MCV 82.7 MCH 26.5 MCHC 32.1 RDW 17.2 H Plt Count 223 D MPV 7.4 L Total Counted 100 Neutrophils % Y Neutrophils % (Manual) 75 Band Neuts % (Manual) 2 D Lymphocytes % Y Lymphocytes % (Manual) 8 Monocytes % (Manual) 7 Eosinophils % (Manual) 3 D Myelocytes % (Man) 2 D INR PTT (Actin FS) 33.5 D Fibrinogen Puncture Site ABG pH ABG pCO2 at Pt Temp ABG pO2 at Pt Temp ABG HCO3 ABG O2 Sat (Measured) ABG O2 Content ABG Base Excess Simon Test O2 Delivery Device Oxygen Flow Rate PEEP Sodium 135 L Potassium 5.6 H Chloride 96 L Carbon Dioxide 20 L Anion Gap 19 H BUN 81 H Creatinine 3.6 H D Creat Clearance w eGFR 12.85 POC Glucometer Random Glucose 65 L D Lactic Acid Uric Acid 16.4 H* D Calcium 8.3 L Total Bilirubin 7.2 H D ALT 741 H D Alkaline Phosphatase 524 H Ammonia C-Reactive Protein 24.2 H D Total Protein 7.3 Albumin 2.1 L D 12/13/16 12/13/16 12/13/16 05:00 05:00 05:45 WBC RBC Hgb Hct MCV MCH MCHC RDW Plt Count MPV Total Counted Neutrophils % Neutrophils % (Manual) Band Neuts % (Manual) Lymphocytes % Lymphocytes % (Manual) Monocytes % (Manual) Eosinophils % (Manual) Myelocytes % (Man) INR PTT (Actin FS) Fibrinogen Puncture Site ABG pH ABG pCO2 at Pt Temp ABG pO2 at Pt Temp ABG HCO3 ABG O2 Sat (Measured) ABG O2 Content ABG Base Excess Simon Test O2 Delivery Device Oxygen Flow Rate PEEP Sodium Potassium Chloride Carbon Dioxide Anion Gap BUN Creatinine Creat Clearance w eGFR POC Glucometer 107.69229 Random Glucose Lactic Acid 12.1 H* Uric Acid Calcium Total Bilirubin ALT Alkaline Phosphatase Ammonia 31.44 C-Reactive Protein Total Protein Albumin 12/13/16 12/13/16 12/13/16 10:59 11:10 12:35 WBC RBC Hgb Hct MCV MCH MCHC RDW Plt Count MPV Total Counted Neutrophils % Neutrophils % (Manual) Band Neuts % (Manual) Lymphocytes % Lymphocytes % (Manual) Monocytes % (Manual) Eosinophils % (Manual) Myelocytes % (Man) INR 2.55 H D PTT (Actin FS) Fibrinogen 397.0 Puncture Site Left radial ABG pH 7.15 L* D ABG pCO2 at Pt Temp 37.7 D ABG pO2 at Pt Temp 60.0 L D ABG HCO3 12.4 L* ABG O2 Sat (Measured) 81.4 L ABG O2 Content 8.5 L* ABG Base Excess -15.1 L* Simon Test Positive O2 Delivery Device Nasal Oxygen Flow Rate 2l PEEP 0.0 Sodium Potassium Chloride Carbon Dioxide Anion Gap BUN Creatinine Creat Clearance w eGFR POC Glucometer 114.57766 Random Glucose Lactic Acid Uric Acid Calcium Total Bilirubin ALT Alkaline Phosphatase Ammonia C-Reactive Protein Total Protein Albumin ASSESSMENT AND PLAN: Liver Mass/Hepatomegaly Liver Failure with Acute Kidney Injury r/o PE Elevated R Hemidiaphragm from above Metabolic Acidosis Anemia Worsening ARF R/O Tumor Lysis Intubation CXR IVF Renal follow up Monitor H/H Monitor urine output, creatinine Sedate for vent synchrony For transfer to [facility] Dr Dozier CCTime 35" critical care time spent in reviewing chart, evaluating patient and formulating plan 35 min
--- NOTE | 2016-12-13 14:25 | PN ---
Progress Note, Physician History of Present Illness: Pt seen and examined at bedside. She is lethargic. She does not respond to verbal stimuli. She does grimace once her abdomen is palpated. - Current Medication List Current Medications: Active Medications Piperacillin Sod/Tazobactam Sod (Zosyn 3.375gm Ivpb (Pre-Docked)) 50 mls @ 100 mls/hr IVPB Q8H-IV KEITH Last Admin: 12/13/16 09:24 Dose: 100 mls/hr Sodium Bicarbonate 150 meq/ (Dextrose/Sodium Chloride) 1,150 mls @ 150 mls/hr IV ASDIR KEITH Last Admin: 12/12/16 21:37 Dose: 150 mls/hr Propofol (Diprivan -) 100 mls @ 3.357 mls/hr IVPB TITR KEITH; 5 MCG/KG/MIN PRN Reason: Protocol Midazolam HCl (Versed -) 5 mg IVPUSH ONCE ONE Stop: 12/13/16 13:22 Morphine Sulfate (Morphine Injection -) 3 mg IVPUSH Q4H PRN PRN Reason: Pain >6 Last Admin: 12/13/16 12:56 Dose: 3 mg Sodium Bicarbonate (Sodium Bicarbonate -) 650 mg PO BID KEITH Last Admin: 12/13/16 09:25 Dose: 650 mg - Objective Vital Signs: Vital Signs Temperature 97.5 F L 12/13/16 10:00 Pulse Rate 87 12/13/16 13:44 Respiratory Rate 27 H 12/13/16 13:20 Blood Pressure 99/69 12/13/16 12:00 O2 Sat by Pulse Oximetry (%) 100 12/13/16 13:44 Constitutional: Yes: Moderate Distress Eyes: Yes: Conjunctiva Clear Cardiovascular: Yes: S1, S2 Respiratory: Yes: Diminished, On Nasal O2 Gastrointestinal: Yes: Distention, Tenderness Genitourinary: Yes: Martin Present Musculoskeletal: Yes: Muscle Weakness Edema: Yes Neurological: Yes: Lethargy Labs: CBC, BMP 12/13/16 05:00 12/13/16 05:00 INR, PTT INR 2.55 (0.82-1.09) H D 12/13/16 12:35 Fibrinogen 397.0 mg/dL (238-498) 12/13/16 12:35 - ....Imaging X-ray: Report Reviewed Assessment/Plan Current Medications Generic Name Dose Route Start Last Admin Trade Name Freq PRN Reason Stop Dose Admin Piperacillin Sod/Tazobactam Sod 50 mls @ 100 mls/hr 12/12/16 09:59 12/13/16 09: 24 Zosyn 3.375gm Ivpb (Pre-Docked) IVPB 100 mls/hr Q8H-IV KEITH Administration Sodium Bicarbonate 150 meq/ 1,150 mls @ 150 mls/hr 12/12/16 19:42 12/12/16 21: 37 Dextrose/Sodium Chloride IV 150 mls/hr ASDIR KEITH Administration Propofol 100 mls @ 3.357 mls/hr 12/13/16 13:30 Diprivan - IVPB TITR KEITH Protocol 5 MCG/KG/MIN Midazolam HCl 5 mg 12/13/16 13:21 Versed - IVPUSH 12/13/16 13:22 ONCE ONE Morphine Sulfate 3 mg 12/13/16 09:10 12/13/16 12:56 Morphine Injection - IVPUSH 3 mg Q4H PRN Administration Pain >6 Sodium Bicarbonate 650 mg 12/13/16 10:00 12/13/16 09:25 Sodium Bicarbonate - PO 650 mg BID KEITH Administration Laboratory Tests 12/13/16 05:00 Lactic Acid 12.1 H* Impression 1. COLEMAN 2. anemia 3. liver mass 4. lactic acidosis 5. Liver Failure with Acute Kidney Injury 6. Metabolic Acidosis 7. lactic acidosis 8. hyperkalemia Plan - renal function is worsening - cont fluids for now - cont fluids and they will help with hyperkalemia - cont bicarb - monitor urine output - pt is being intubated, get cxr - pt is accepted for transfer to [facility] - called pharmacy to change fluids to d51/2 with 75 meq - discussed with ICU team - surgical consult called called for distended abdomen - monitor blood pressure - trend lactic acid levels Dr Smalls
[2016-12-13] MEDS ORDERED: DEXTROSE 5%-0.45% SALINE 1,000 ML with SODIUM BICARBONATE 8.4% - 75 MEQ IV SCH (14:45)
--- NOTE | 2016-12-13 15:04 | PROC ---
Intubation - Intubation Reason for Intubation: Respiratory Failure, Ventilatory Failure Intubation Method: orotracheal Blade used: Glidescope Tube Size (cm): 7.5 Tube position confirmed by: Direct visualization, CO2 detector, Chest x-ray, Breath sounds Breath Sounds after Intubation: equal Post Intubation Xray: Yes
[2016-12-13 15:09] LABS: ARTERIAL BLD GAS O2 SATURATION 96.7 % (90-98.9); ARTERIAL BLOOD GAS BASE EXCESS -17.9 meq/l (-2-2)
[2016-12-13 15:10] LABS: ARTERIAL BLOOD GAS pH 7.15 (7.35-7.45)
--- NOTE | 2016-12-13 15:10 | PROC ---
Central Line Insertion Indication: Sepsis Risks and Benefits Explained: Yes Consent on Chart: Yes Central Line: Triple Lumen Catheter Anesthesia: 1% Lidocaine Sterile Technique: Yes Ultrasound Guided Assistance: Yes Position: Right Internal Jugular Post Insertion: Yes: Bilateral Breath Sounds, Bilateral Chest Expansion, Chest X-Ray Ordered Sterile Dressing Applied: Yes
[2016-12-13 15:12] LABS: ALLENS TEST POSITIVE; ART PUNCT SITE LEFT RADIAL
[2016-12-13 15:13] LABS: LPM/O2% 100%; PT. ON O2? YES; TYPE OF O2 MEC.VENT; VENT RATE 14; VT/PRESS 500
[2016-12-13 15:15] LABS: ARTERIAL BLOOD GAS pH 7.11 (7.35-7.45)
[2016-12-13] MEDS: DEXTROSE 5%-0.45% SALINE 1,000 ML with SODIUM BICARBONATE 8.4% - 75 MEQ IV SCH (16:10)
[2016-12-13] MEDS: PROPOFOL 100 ML IVPB SCH (16:11)
[2016-12-13] MEDS ORDERED: SODIUM CHLORIDE 0.9% 1000 ML INFUS.BAG IV ONE (20:55)
[2016-12-13 22:10] LABS: ARTERIAL BLD GAS O2 SATURATION 99.6 % (90-98.9); ARTERIAL BLOOD GAS BASE EXCESS -18.5 meq/l (-2-2)
[2016-12-13 22:11] LABS: ALLENS TEST POSITIVE; ART PUNCT SITE LEFT RADIAL; ARTERIAL BLOOD GAS pH 7.13 (7.35-7.45); LPM/O2% 100%; MECH. VENT. YES; PT. ON O2? YES; TYPE OF O2 MECH VENT; VENT RATE 20; VT/PRESS 500
[2016-12-14] MEDS ORDERED: HEMOQUE TEST 1 EACH EACH ONE (01:00)
[2016-12-14] MEDS ORDERED: ATROPINE SULFATE 1 MG/10 ML DISP.SYRIN ONE (01:18)
[2016-12-14] MEDS ORDERED: DOPAMINE 400 MG/D5W - 250 ML IVPB ONE ×3 (01:20→20:44)
[2016-12-14] MEDS ORDERED: SODIUM POLYSTYRENE SULFONATE 15 GM/60 ML BOTTLE ONE (01:34)
[2016-12-14] MEDS ORDERED: CALCIUM GLUCONATE 10% - 1,000 MG/10 ML VIAL ONE ×3 (01:34→12:44)
[2016-12-14] MEDS ORDERED: DEXTROSE 50%-WATER 50 ML DISP.SYRIN ONE ×2 (01:34→12:43)
[2016-12-14] MEDS ORDERED: INSULIN REGULAR HUMAN 100 UNITS/ML *VIAL IVPUSH ONE ×2 (01:40→15:37)
[2016-12-14] MEDS ORDERED: CALCIUM GLUCONATE 10% - 1,000 MG/10 ML VIAL IVPB ONE ×2 (01:40)
[2016-12-14] MEDS ORDERED: SODIUM POLYSTYRENE SULFONATE 15 GM/60 ML BOTTLE NGT ONE (01:40)
[2016-12-14] MEDS ORDERED: DEXTROSE 50%-WATER - 25 GM/50 ML VIAL IVPUSH ONE ×2 (01:40→15:37)
[2016-12-14] MEDS: DOPAMINE 400 MG/D5W - 250 ML IVPB SCH ×2 (02:00→10:00)
[2016-12-14] MEDS: PIPERACILLIN/TAZOB 3.375 GM 50 ML IVPB SCH ×3 (02:19→17:22)
[2016-12-14 02:34] LABS: MCH 26.2 pg (25.7-33.7); MCHC 29.4 g/dl (32.0-36.0); MEAN CELL VOLUME 89.2 fl (80-96); MEAN PLT VOLUME 7.9 fl (7.5-11.1); PLATELET COUNT 190 K/MM3 (134-434); RDW 17.8 % (11.6-15.6); WHITE BLOOD COUNT 25.5 K/mm3 (4.0-10.0)
[2016-12-14] MEDS: ALBUTEROL SO4 0.083% IH SOL 2.5 MG/3 ML VIAL.NEB. NEB PRN ×2 (02:45→06:24)
[2016-12-14 03:02] LABS: ALBUMIN 1.9 g/dl (3.4-5.0); ANION GAP 30 (8-16); BILIRUBIN,TOTAL 7.4 mg/dL (0.2-1.0); CALCIUM 7.2 mg/dL (8.5-10.1); CO2 9 mmol/L (21-32); CREATININE 4.9 mg/dL (0.55-1.02); GLUCOSE,RANDOM 131 mg/dL (74-106)
[2016-12-14 03:07] LABS: ALK PHOS 685 U/L (45-117); CPK 637 IU/L (26-192); TROPONIN I 0.11 ng/ml (0.00-0.05)
[2016-12-14 03:13] LABS: SGPT/ALT 1200 U/L (12-78)
[2016-12-14] MEDS ORDERED: SODIUM CHLORIDE 1,000 ML IV STA (04:18)
--- NOTE | 2016-12-14 04:36 | PROC ---
Procedure Note Procedure: Central line Placement: Trialysis catheter Placed in Rt IJ Previous TLC remove d/t unclear placement Consent received, Chlorhexidine cleansed; time out done Sterile field applied Ultrasound used Lidocaine applied Seldinger technique 16cm Catheter placed to hub. Sutured CXR ordered 3cc propofol IV given
[2016-12-14 04:49] LABS: SGOT/AST 1150 U/L (15-37)
--- NOTE | 2016-12-14 04:49 | PN ---
Progress Note (short form) - Note Progress Note: At about 1:20am pt bradycardic to HR 39-40 and hypotensive to SBP 70's. Propofol drip held. Dopamine drip started at 5mcg/kg/min with improvement to 60' s SBP 90's MAP 60's. Hyperkalemia treatment started for previous K 5.6 with insulin, D50, calcium gluconate and kayexalate. NGT drainage apeared coffe ground. Labs sent at that time notable for K6.9, hgb 6.9. 1U PRBC given. Lactate at ~9pm 16. 2L NS total given. Pt opened eyes and moving all extremities off propofol. Trialysis cath placed in Rt IJ for pressors and possible HD. Earlier in the evening I reiterated to her family that she was gravely ill and worsening and that her prognosis was poor. They stated that they wanted everything done. CBC,CMP WBC 25.5 K/mm3 (4.0-10.0) H D 12/14/16 01:50 RBC 2.64 M/mm3 (3.60-5.2) L 12/14/16 01:50 Hgb 6.9 GM/dL (10.7-15.3) L* 12/14/16 01:50 Hct 23.5 % (32.4-45.2) L 12/14/16 01:50 MCV 89.2 fl (80-96) 12/14/16 01:50 MCH 26.2 pg (25.7-33.7) 12/14/16 01:50 MCHC 29.4 g/dl (32.0-36.0) L 12/14/16 01:50 RDW 17.8 % (11.6-15.6) H 12/14/16 01:50 Plt Count 190 K/MM3 (134-434) 12/14/16 01:50 MPV 7.9 fl (7.5-11.1) 12/14/16 01:50 Total Counted 100 12/13/16 05:00 Neutrophils % Y 12/13/16 05:00 Neutrophils % (Manual) 75 % (42.8-82.8) 12/13/16 05:00 Band Neuts % (Manual) 2 % (0-10) D 12/13/16 05:00 Lymphocytes % Y 12/13/16 05:00 Lymphocytes % (Manual) 8 % (8-40) 12/13/16 05:00 Monocytes % 6.6 % (3.8-10.2) 12/12/16 05:30 Monocytes % (Manual) 7 % (3.8-10.2) 12/13/16 05:00 Eosinophils % 1.5 % (0-4.5) D 12/12/16 05:30 Eosinophils % (Manual) 3 % (0-4.5) D 12/13/16 05:00 Basophils % 0.5 % (0-2.0) 12/12/16 05:30 Myelocytes % (Man) 2 % (0-2) D 12/13/16 05:00 Hypochromia Occasional 12/09/16 22:00 Platelet Estimate Adequate (NORMAL) 12/10/16 06:00 Platelet Comment No clumping noted 12/10/16 06:00 Polychromasia 1+ 12/09/16 22:00 Anisocytosis 1+ 12/09/16 08:30 Microcytosis 1+ 12/09/16 08:30 Tear Drop Cells 1+ 12/09/16 08:30 ESR > 130 mm/hr (0-30) H 12/09/16 08:30 Sodium 133 mmol/L (136-145) L 12/14/16 01:50 Potassium 6.9 mmol/L (3.5-5.1) H* D 12/14/16 01:50 Chloride 94 mmol/L (98-107) L 12/14/16 01:50 Carbon Dioxide 9 mmol/L (21-32) L D 12/14/16 01:50 Anion Gap 30 (8-16) H 12/14/16 01:50 BUN 86 mg/dL (7-18) H 12/14/16 01:50 Creatinine 4.9 mg/dL (0.55-1.02) H D 12/14/16 01:50 Creat Clearance w eGFR 9.01 (>60) 12/14/16 01:50 POC Glucometer 114.64975 UNITS (()) 12/13/16 11:10 Random Glucose 131 mg/dL (74-106) H D 12/14/16 01:50 Serum Osmolality 297 mosm/kg (278-305) 12/08/16 06:10 Lactic Acid 16.2 mmol/L (0.4-2.0) H* 12/13/16 21:45 Uric Acid 16.4 mg/dL (2.6-7.2) H* D 12/13/16 05:00 Calcium 7.2 mg/dL (8.5-10.1) L 12/14/16 01:50 Phosphorus 5.0 mg/dL (2.5-4.9) H 12/12/16 05:30 Magnesium 2.7 mg/dL (1.8-2.4) H 12/12/16 05:30 Iron 16 ug/dL (27-139) L 12/07/16 12:00 TIBC 165 ug/dL (250-450) L 12/07/16 12:00 Iron Saturation 10 % (15-55) L 12/07/16 12:00 Transferrin 125 mg/dL (200-370) L 12/07/16 12:00 Ferritin 2342.05 ng/ml (6.9-282.5) H 12/07/16 12:00 Total Bilirubin 7.4 mg/dL (0.2-1.0) H 12/14/16 01:50 Direct Bilirubin 5.0 mg/dL (0.0-0.2) H 12/12/16 05:30 AST 5078 U/L (15-37) H 12/13/16 05:00 ALT 1200 U/L (12-78) H D 12/14/16 01:50 Alkaline Phosphatase 685 U/L (45-117) H D 12/14/16 01:50 Ammonia 31.44 umol/L (11-32) 12/13/16 05:00 LD Total 8002 U/L (84-246) H 12/13/16 05:00 Creatine Kinase 637 IU/L (26-192) H 12/14/16 01:50 Troponin I 0.11 ng/ml (0.00-0.05) H 12/14/16 01:50 C-Reactive Protein 24.2 MG/DL (0.00-0.3) H D 12/13/16 05:00 B-Natriuretic Peptide 1050.40 pg/ml (5-125) H 12/05/16 21:57 Total Protein 7.0 g/dl (6.4-8.2) 12/14/16 01:50 Albumin 1.9 g/dl (3.4-5.0) L 12/14/16 01:50 Tumor Marker AFP 13.5 ng/ml (0.0-8.3) H 12/08/16 06:10 Vital Signs - 8 hr 12/13/16 12/13/16 12/13/16 21:00 21:45 22:00 Temperature 98 F Pulse Rate 82 83 Respiratory 20 20 21 Rate Blood Pressure 87/52 88/50 O2 Sat by Pulse 100 100 Oximetry (%) 12/13/16 12/13/16 12/14/16 22:20 23:00 00:00 Temperature Pulse Rate 85 81 Respiratory 20 23 18 Rate Blood Pressure 92/47 92/44 O2 Sat by Pulse 100 Oximetry (%) 12/14/16 12/14/16 12/14/16 00:26 01:00 01:20 Temperature Pulse Rate 96 H 56 L Respiratory 24 24 21 Rate Blood Pressure 81/50 76/40 O2 Sat by Pulse Oximetry (%) 12/14/16 12/14/16 02:00 03:03 Temperature 98 F Pulse Rate 81 Respiratory 18 20 Rate Blood Pressure 87/60 O2 Sat by Pulse Oximetry (%) ABG Results ABG pH 7.13 (7.35-7.45) L* 12/13/16 22:05 ABG pCO2 at Pt Temp 28.2 mmHg (35-45) L 12/13/16 22:05 ABG pO2 at Pt Temp 255.0 mmHg (80-100) H* 12/13/16 22:05 ABG HCO3 9.0 meq/L (22-26) L* 12/13/16 22:05 ABG O2 Sat (Measured) 99.6 % (90-98.9) H* 12/13/16 22:05 ABG O2 Content 10.2 % vol (15-22) L 12/13/16 22:05 ABG Base Excess -18.5 meq/l (-2-2) L* 12/13/16 22:05 Active Medications Generic Name Dose Route Start Last Admin Trade Name Freq PRN Reason Stop Dose Admin Albuterol Sulfate 1 amp 12/14/16 01:57 12/14/16 02:45 Ventolin 0.083% Nebulizer Soln - NEB 1 amp Q4H PRN Administration SHORT OF BREATH/WHEEZING Piperacillin Sod/Tazobactam Sod 50 mls @ 100 mls/hr 12/12/16 09:59 12/14/16 02: 19 Zosyn 3.375gm Ivpb (Pre-Docked) IVPB 100 mls/hr Q8H-IV KEITH Administration Propofol 100 mls @ 3.357 mls/hr 12/13/16 13:30 12/14/16 01:20 Diprivan - IVPB 0 mcg/kg/min TITR KEITH Titration Protocol 5 MCG/KG/MIN Sodium Bicarbonate 75 meq/ 1,075 mls @ 150 mls/hr 12/13/16 14:45 12/13/16 16:10 Dextrose/Sodium Chloride IV 150 mls/hr ASDIR KEITH Administration Sodium Chloride 1,000 mls @ 1,000 mls/hr 12/14/16 04:18 Normal Saline - IV 12/14/16 05:17 ASDIR STA Dopamine HCl/Dextrose 250 mls @ 20.981 mls/hr 12/14/16 04:30 Dopamine 400 Mg/D5w - IVPB TITR KEITH Protocol 5 MCG/KG/MIN Morphine Sulfate 3 mg 12/13/16 09:10 12/13/16 12:56 Morphine Injection - IVPUSH 3 mg Q4H PRN Administration Pain >6 Sodium Bicarbonate 650 mg 12/13/16 10:00 12/13/16 22:33 Sodium Bicarbonate - PO 650 mg BID KEITH Administration
[2016-12-14] MEDS ORDERED: INSULIN REGULAR HUMAN 100 UNITS/ML *VIAL ONE (06:35)
--- NOTE | 2016-12-14 07:45 | PN ---
Progress Note, Physician Chief Complaint: Pt is more lethargic today. 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 Patient was recently admitted at [facility] from 11/25 - 11/27 for right sided pain. She had multiple CT scans (head, abdomen) where she was diagnosed with a liver mass. Upon liver mass finding, she was introduced to a residential care officer/oncologist. She has called the office multiple times with no call back. She appears upset because she states she is more symptomatic. Patient also reports she has bilateral leg swelling, which she states is chronic since her bilateral knee replacement. She denies chest pain. She denies nausea, vomiting, diarrhea. She denies urinary complaints. PCP: Dr. Sven Chávez Surgeries: partial hysterectomy, bilateral knee replacement, multiple skin grafts (face, extremities) SHx: Current smoker (half a pack/day for 40 years) Allergies: none - Current Medication List Current Medications: Active Medications Albuterol Sulfate (Ventolin 0.083% Nebulizer Soln -) 1 amp NEB Q4H PRN PRN Reason: SHORT OF BREATH/WHEEZING Last Admin: 12/14/16 06:24 Dose: 1 amp Piperacillin Sod/Tazobactam Sod (Zosyn 3.375gm Ivpb (Pre-Docked)) 50 mls @ 100 mls/hr IVPB Q8H-IV KEITH Last Admin: 12/14/16 02:19 Dose: 100 mls/hr Propofol (Diprivan -) 100 mls @ 3.357 mls/hr IVPB TITR KEITH; 5 MCG/KG/MIN PRN Reason: Protocol Last Titration: 12/14/16 01:20 Dose: 0 mcg/kg/min Sodium Bicarbonate 75 meq/ (Dextrose/Sodium Chloride) 1,075 mls @ 150 mls/hr IV ASDIR KEITH Last Admin: 12/13/16 16:10 Dose: 150 mls/hr Dopamine HCl/Dextrose (Dopamine 400 Mg/D5w -) 250 mls @ 20.981 mls/hr IVPB TITR KEITH; 5 MCG/KG/MIN PRN Reason: Protocol Last Admin: 12/14/16 02:00 Dose: 20.981 mls/hr Morphine Sulfate (Morphine Injection -) 3 mg IVPUSH Q4H PRN PRN Reason: Pain >6 Last Admin: 12/13/16 12:56 Dose: 3 mg Sodium Bicarbonate (Sodium Bicarbonate -) 650 mg PO BID KEITH Last Admin: 12/13/16 22:33 Dose: 650 mg - Objective Vital Signs: Vital Signs Temperature 97.6 F 12/14/16 06:00 Pulse Rate 82 12/14/16 06:00 Respiratory Rate 20 12/14/16 06:27 Blood Pressure 100/58 12/14/16 06:00 O2 Sat by Pulse Oximetry (%) 100 12/13/16 22:20 Constitutional: Yes: Other (markedly distended abdomen;) Eyes: Yes: WNL HENT: Yes: WNL Neck: Yes: WNL Cardiovascular: Yes: Tachycardia Respiratory: Yes: Diminished, Tachypnea Gastrointestinal: Yes: Distention ...Rectal Exam: Yes: Deferred Genitourinary: No: Anuria Musculoskeletal: Yes: Back Pain, Joint Swelling, Muscle Weakness Extremities: Yes: Cool Edema: Yes Edema: LLE: 2+, RLE: 2+ Peripheral Pulses WNL: No Peripheral Pulses: Left Doralis Pedis: 1+, Right Dorsalis Pedis: 1+ Neurological: Yes: Weakness Psychiatric: Yes: Other Labs: CBC, BMP 12/14/16 01:50 12/14/16 01:50 INR, PTT INR 2.55 (0.82-1.09) H D 12/13/16 12:35 Fibrinogen 397.0 mg/dL (238-498) 12/13/16 12:35 - ....Imaging Other: Image Reviewed (telemetry: sinus tachycardia) Problem List - Problems (1) Abnormal liver function tests Assessment/Plan: liver dysfunction. Hypoglycemic; hypokalemic; ? hepatic encepalopathy. More lethargic. Now on HCO3. Requires transfer to tertiary center. Code(s): R79.89 - OTHER SPECIFIED ABNORMAL FINDINGS OF BLOOD CHEMISTRY (2) Anemia Assessment/Plan: Received PRBCs (one unit); f/u HB, anemia workup. On IV heparin for presumed PE, though pt's marked abdominal distention is likely severely compromising respiratory capability. Code(s): D64.9 - ANEMIA, UNSPECIFIED Qualifiers: Qualified Code(s): D64.9 - Anemia, unspecified (3) Edema of both legs Code(s): R60.0 - LOCALIZED EDEMA (4) Exertional dyspnea Code(s): R06.09 - OTHER FORMS OF DYSPNEA (5) Liver mass, right lobe Code(s): R16.0 - HEPATOMEGALY, NOT ELSEWHERE CLASSIFIED (6) Renal insufficiency Code(s): N28.9 - DISORDER OF KIDNEY AND URETER, UNSPECIFIED (7) Hypertension Code(s): I10 - ESSENTIAL (PRIMARY) HYPERTENSION (8) Lower abdominal pain Code(s): R10.30 - LOWER ABDOMINAL PAIN, UNSPECIFIED (9) Abnormal echocardiogram Assessment/Plan: BAM (done to assess abnormalities noted on TTE): normal LVEF; no pulmonary valve abnormality; no vegetations; small pericardial effusion; RVOT abnormality is an artifact. Code(s): R93.1 - ABNORMAL FINDINGS ON DX IMAGING OF HEART AND COR CIRC
[2016-12-14] MEDS: PROPOFOL 100 ML IVPB SCH (08:00)
--- NOTE | 2016-12-14 08:04 | PN ---
Progress Note, Physician Chief Complaint: Pt required intubation today due to increasing respiratory compromise. 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 Patient was recently admitted at [facility] from 11/25 - 11/27 for right sided pain. She had multiple CT scans (head, abdomen) where she was diagnosed with a liver mass. Upon liver mass finding, she was introduced to a security system technician/oncologist. She has called the office multiple times with no call back. She appears upset because she states she is more symptomatic. Patient also reports she has bilateral leg swelling, which she states is chronic since her bilateral knee replacement. She denies chest pain. She denies nausea, vomiting, diarrhea. She denies urinary complaints. PCP: Dr. Sven Chávez Surgeries: partial hysterectomy, bilateral knee replacement, multiple skin grafts (face, extremities) SHx: Current smoker (half a pack/day for 40 years) Allergies: none - Current Medication List Current Medications: Active Medications Albuterol Sulfate (Ventolin 0.083% Nebulizer Soln -) 1 amp NEB Q4H PRN PRN Reason: SHORT OF BREATH/WHEEZING Last Admin: 12/14/16 06:24 Dose: 1 amp Piperacillin Sod/Tazobactam Sod (Zosyn 3.375gm Ivpb (Pre-Docked)) 50 mls @ 100 mls/hr IVPB Q8H-IV KEITH Last Admin: 12/14/16 02:19 Dose: 100 mls/hr Propofol (Diprivan -) 100 mls @ 3.357 mls/hr IVPB TITR KEITH; 5 MCG/KG/MIN PRN Reason: Protocol Last Titration: 12/14/16 01:20 Dose: 0 mcg/kg/min Sodium Bicarbonate 75 meq/ (Dextrose/Sodium Chloride) 1,075 mls @ 150 mls/hr IV ASDIR KEITH Last Admin: 12/13/16 16:10 Dose: 150 mls/hr Dopamine HCl/Dextrose (Dopamine 400 Mg/D5w -) 250 mls @ 20.981 mls/hr IVPB TITR KEITH; 5 MCG/KG/MIN PRN Reason: Protocol Last Admin: 12/14/16 02:00 Dose: 20.981 mls/hr Morphine Sulfate (Morphine Injection -) 3 mg IVPUSH Q4H PRN PRN Reason: Pain >6 Last Admin: 12/13/16 12:56 Dose: 3 mg Sodium Bicarbonate (Sodium Bicarbonate -) 650 mg PO BID KEITH Last Admin: 12/13/16 22:33 Dose: 650 mg - Objective Vital Signs: Vital Signs Temperature 97.6 F 12/14/16 06:00 Pulse Rate 82 12/14/16 06:00 Respiratory Rate 20 12/14/16 06:27 Blood Pressure 100/58 12/14/16 06:00 O2 Sat by Pulse Oximetry (%) 100 12/13/16 22:20 Constitutional: Yes: Obese, Other Labs: CBC, BMP 12/14/16 01:50 12/14/16 01:50 INR, PTT INR 2.55 (0.82-1.09) H D 12/13/16 12:35 Fibrinogen 397.0 mg/dL (238-498) 12/13/16 12:35 Problem List - Problems (1) Abnormal liver function tests Assessment/Plan: liver mass. Hypoglycemic; hyperkalemic; hepatic encepalopathy. More lethargic; now intubated. On dopamine; sodium bicarbonate. treat hyperkalemia. Requires transfer to tertiary center. Poor prognosis. Code(s): R79.89 - OTHER SPECIFIED ABNORMAL FINDINGS OF BLOOD CHEMISTRY (2) Anemia Assessment/Plan: Received PRBCs (one unit); f/u HB, anemia workup. On IV heparin for presumed PE, though pt's marked abdominal distention is likely severely compromising respiratory capability. Code(s): D64.9 - ANEMIA, UNSPECIFIED Qualifiers: Qualified Code(s): D64.9 - Anemia, unspecified (3) Edema of both legs Code(s): R60.0 - LOCALIZED EDEMA (4) Exertional dyspnea Code(s): R06.09 - OTHER FORMS OF DYSPNEA (5) Liver mass, right lobe Code(s): R16.0 - HEPATOMEGALY, NOT ELSEWHERE CLASSIFIED (6) Renal insufficiency Code(s): N28.9 - DISORDER OF KIDNEY AND URETER, UNSPECIFIED (7) Hypertension Code(s): I10 - ESSENTIAL (PRIMARY) HYPERTENSION (8) Lower abdominal pain Code(s): R10.30 - LOWER ABDOMINAL PAIN, UNSPECIFIED (9) Abnormal echocardiogram Assessment/Plan: BAM (done to assess abnormalities noted on TTE): normal LVEF; no pulmonary valve abnormality; no vegetations; small pericardial effusion; RVOT abnormality is an artifact. Code(s): R93.1 - ABNORMAL FINDINGS ON DX IMAGING OF HEART AND COR CIRC Assessment/Plan ccu time spent 35 minutes.
[2016-12-14 08:14] LABS: MCH 26.5 pg (25.7-33.7); MCHC 29.8 g/dl (32.0-36.0); MEAN CELL VOLUME 88.7 fl (80-96); MEAN PLT VOLUME 7.4 fl (7.5-11.1); PLATELET COUNT 171 K/MM3 (134-434); RDW 17.3 % (11.6-15.6)
[2016-12-14 08:58] LABS: INR 2.75 (0.82-1.09); PROTHROMBIN TIME (PATIENT) 30.9 SEC (9.98-11.88)
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
[2016-12-14] MEDS ORDERED: NOREPINEPHRINE BITARTRATE 4 MG/4 ML ML IV ONE ×2 (11:28→18:18)
[2016-12-14] MEDS ORDERED: PHYTONADIONE 10 MG/1 ML AMP IVPB ONE (11:45)
[2016-12-14] MEDS ORDERED: NOREPINEPHRINE BITARTRATE 8,000 MCG in SODIUM CHLORIDE 0.45% 992 ML IV SCH (11:45)
[2016-12-14 11:57] LABS: ALBUMIN 1.9 g/dl (3.4-5.0); CALCIUM 7.3 mg/dL (8.5-10.1)
[2016-12-14 12:02] LABS: ANION GAP 29 (8-16); BILIRUBIN,TOTAL 8.1 mg/dL (0.2-1.0); CO2 9 mmol/L (21-32); CREATININE 5.2 mg/dL (0.55-1.02); GLUCOSE,RANDOM 117 mg/dL (74-106); MAGNESIUM 3.3 mg/dL (1.8-2.4)
[2016-12-14 12:11] LABS: ALK PHOS 856 U/L (45-117)
--- NOTE | 2016-12-14 12:22 | PN ---
Progress Note, Physician History of Present Illness: Pt seen and examined at bedside. She remains in the ICU. Pt remains intubated. She is lethargic. Her renal function is worsening. - Current Medication List Current Medications: Active Medications Albuterol Sulfate (Ventolin 0.083% Nebulizer Soln -) 1 amp NEB Q4H PRN PRN Reason: SHORT OF BREATH/WHEEZING Last Admin: 12/14/16 06:24 Dose: 1 amp Piperacillin Sod/Tazobactam Sod (Zosyn 3.375gm Ivpb (Pre-Docked)) 50 mls @ 100 mls/hr IVPB Q8H-IV KEITH Last Admin: 12/14/16 09:35 Dose: 100 mls/hr Propofol (Diprivan -) 100 mls @ 3.357 mls/hr IVPB TITR KEITH; 5 MCG/KG/MIN PRN Reason: Protocol Last Titration: 12/14/16 01:20 Dose: 0 mcg/kg/min Sodium Bicarbonate 75 meq/ (Dextrose/Sodium Chloride) 1,075 mls @ 150 mls/hr IV ASDIR KEITH Last Admin: 12/13/16 16:10 Dose: 150 mls/hr Dopamine HCl/Dextrose (Dopamine 400 Mg/D5w -) 250 mls @ 20.981 mls/hr IVPB TITR KEITH; 5 MCG/KG/MIN PRN Reason: Protocol Last Admin: 12/14/16 02:00 Dose: 20.981 mls/hr Rasburicase 6 mg/ Sodium (Chloride) 50 mls @ 100 mls/hr IVPB ONCE ONE Stop: 12/14/16 12:59 Norepinephrine Bitartrate 8, (000 mcg/ Sodium Chloride) 1,000 mls @ 37.5 mls/ hr IV TITR KEITH; 5 MCG/MIN PRN Reason: Protocol Morphine Sulfate (Morphine Injection -) 3 mg IVPUSH Q4H PRN PRN Reason: Pain >6 Last Admin: 12/13/16 12:56 Dose: 3 mg Sodium Bicarbonate (Sodium Bicarbonate -) 650 mg PO BID KEITH Last Admin: 12/13/16 22:33 Dose: 650 mg - Objective Vital Signs: Vital Signs Temperature 97.8 F 12/14/16 10:00 Pulse Rate 79 12/14/16 10:00 Respiratory Rate 20 12/14/16 11:52 Blood Pressure 95/62 12/14/16 10:00 O2 Sat by Pulse Oximetry (%) 100 12/13/16 22:20 Constitutional: Yes: Calm Eyes: Yes: Conjunctiva Clear HENT: Yes: Atraumatic Cardiovascular: Yes: S1, S2 Respiratory: Yes: Mechanically Ventilated Gastrointestinal: Yes: Distention, Tenderness Genitourinary: Yes: Martin Present, Oliguria Musculoskeletal: Yes: Muscle Weakness Edema: Yes Neurological: Yes: Lethargy Labs: CBC, BMP 12/14/16 06:00 INR, PTT INR 2.75 (0.82-1.09) H 12/14/16 06:00 Fibrinogen 397.0 mg/dL (238-498) 12/13/16 12:35 - ....Imaging Chest X-ray: Report Reviewed Assessment/Plan Current Medications Generic Name Dose Route Start Last Admin Trade Name Freq PRN Reason Stop Dose Admin Albuterol Sulfate 1 amp 12/14/16 01:57 12/14/16 06:24 Ventolin 0.083% Nebulizer Soln - NEB 1 amp Q4H PRN Administration SHORT OF BREATH/WHEEZING Piperacillin Sod/Tazobactam Sod 50 mls @ 100 mls/hr 12/12/16 09:59 12/14/16 09: 35 Zosyn 3.375gm Ivpb (Pre-Docked) IVPB 100 mls/hr Q8H-IV KEITH Administration Propofol 100 mls @ 3.357 mls/hr 12/13/16 13:30 12/14/16 01:20 Diprivan - IVPB 0 mcg/kg/min TITR KEITH Titration Protocol 5 MCG/KG/MIN Sodium Bicarbonate 75 meq/ 1,075 mls @ 150 mls/hr 12/13/16 14:45 12/13/16 16:10 Dextrose/Sodium Chloride IV 150 mls/hr ASDIR KEITH Administration Dopamine HCl/Dextrose 250 mls @ 20.981 mls/hr 12/14/16 04:30 12/14/16 02:00 Dopamine 400 Mg/D5w - IVPB 20.981 mls/hr TITR KEITH Administration Protocol 5 MCG/KG/MIN Rasburicase 6 mg/ Sodium 50 mls @ 100 mls/hr 12/14/16 12:30 Chloride IVPB 12/14/16 12:59 ONCE ONE Norepinephrine Bitartrate 8, 1,000 mls @ 37.5 mls/hr 12/14/16 11:45 000 mcg/ Sodium Chloride IV TITR KEITH Protocol 5 MCG/MIN Morphine Sulfate 3 mg 12/13/16 09:10 12/13/16 12:56 Morphine Injection - IVPUSH 3 mg Q4H PRN Administration Pain >6 Sodium Bicarbonate 650 mg 12/13/16 10:00 12/13/16 22:33 Sodium Bicarbonate - PO 650 mg BID KEITH Administration Impression 1. COLEMAN 2. anemia 3. liver mass 4. lactic acidosis 5. Liver Failure with Acute Kidney Injury 6. Metabolic Acidosis 7. lactic acidosis 8. hyperkalemia 9. hypotension Plan - called and discussed care with pts sister Chanel Blanco at [phone]. She agrees to HD - potassium was treated medically by the ICU team, follow up repeat labs - HD catheter placed - will dialyze pt today - cont bicarb for now - vent support - pt still pending transfer to liver center - discussed with ICU team - trend lactic acid levels Dr Smalls
[2016-12-14] MEDS ORDERED: RASBURICASE 6 MG in SODIUM CHLORIDE 50 ML IVPB ONE (12:30)
[2016-12-14 12:33] LABS: METAMYELOCYTE 3 % (0-2); TOTAL CELLS COUNTED 100
[2016-12-14 12:34] LABS: MYELOCYTE 1 % (0-2); PLATELET ESTIMATE ADEQUATE (NORMAL)
[2016-12-14 12:36] LABS: SGPT/ALT 1577 U/L (12-78)
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
[2016-12-14 12:39] LABS: PHOSPHOROUS 12.2 mg/dL (2.5-4.9); URIC ACID 19.2 mg/dL (2.6-7.2)
--- NOTE | 2016-12-14 13:01 | PN ---
Progress Note, Physician History of Present Illness: 61 y/o F with a PMHx of hypertension, hypercholesterolemia, and basal cell cancer of the upper lip, recent diagnosis of liver mass presents to the ED with increasing dyspnea on exertion. Patient was recently admitted at [facility] from 11/25 - 11/27 for right sided pain. She had multiple CT scans (head, abdomen ) where she was diagnosed with a liver mass. Upon liver mass finding, she was introduced to a notch grinder/oncologist. She has called the office multiple times with no call back. She appears upset because she states she is more symptomatic. Patient also reports she has bilateral leg swelling, which she states is chronic since her bilateral knee replacement. She denies chest pain. She denies nausea, vomiting, diarrhea. She denies urinary complaints. - Current Medication List Current Medications: Active Medications Albumin Human (Albumin Human 25%) 12.5 gm IVPB Q30M KEITH Stop: 12/14/16 14:01 Albuterol Sulfate (Ventolin 0.083% Nebulizer Soln -) 1 amp NEB Q4H PRN PRN Reason: SHORT OF BREATH/WHEEZING Last Admin: 12/14/16 06:24 Dose: 1 amp Piperacillin Sod/Tazobactam Sod (Zosyn 3.375gm Ivpb (Pre-Docked)) 50 mls @ 100 mls/hr IVPB Q8H-IV KEITH Last Admin: 12/14/16 09:35 Dose: 100 mls/hr Propofol (Diprivan -) 100 mls @ 3.357 mls/hr IVPB TITR KEITH; 5 MCG/KG/MIN PRN Reason: Protocol Last Titration: 12/14/16 01:20 Dose: 0 mcg/kg/min Sodium Bicarbonate 75 meq/ (Dextrose/Sodium Chloride) 1,075 mls @ 150 mls/hr IV ASDIR KEITH Last Admin: 12/13/16 16:10 Dose: 150 mls/hr Dopamine HCl/Dextrose (Dopamine 400 Mg/D5w -) 250 mls @ 20.981 mls/hr IVPB TITR KEITH; 5 MCG/KG/MIN PRN Reason: Protocol Last Admin: 12/14/16 02:00 Dose: 20.981 mls/hr Norepinephrine Bitartrate 8, (000 mcg/ Sodium Chloride) 1,000 mls @ 37.5 mls/ hr IV TITR KEITH; 5 MCG/MIN PRN Reason: Protocol Morphine Sulfate (Morphine Injection -) 3 mg IVPUSH Q4H PRN PRN Reason: Pain >6 Last Admin: 12/13/16 12:56 Dose: 3 mg Sodium Bicarbonate (Sodium Bicarbonate -) 650 mg PO BID KEITH Last Admin: 12/13/16 22:33 Dose: 650 mg - Objective Vital Signs: Vital Signs Temperature 97.8 F 12/14/16 10:00 Pulse Rate 54 L 12/14/16 12:37 Respiratory Rate 20 12/14/16 12:37 Blood Pressure 97/49 12/14/16 12:37 O2 Sat by Pulse Oximetry (%) 100 12/13/16 22:20 Eyes: Yes: WNL, Conjunctiva Clear, EOM Intact HENT: Yes: WNL, Atraumatic, Normocephalic Neck: Yes: WNL, Supple, Trachea Midline Cardiovascular: Yes: WNL, Regular Rate and Rhythm Respiratory: Yes: Intubated, Mechanically Ventilated Gastrointestinal: Yes: WNL, Normal Bowel Sounds Genitourinary: Yes: WNL Musculoskeletal: Yes: WNL Extremities: Yes: WNL Edema: No Integumentary: Yes: WNL ...Motor Strength: WNL Psychiatric: Yes: WNL Labs: CBC, BMP 12/14/16 06:00 12/14/16 12:20 INR, PTT INR 2.75 (0.82-1.09) H 12/14/16 06:00 Fibrinogen 397.0 mg/dL (238-498) 12/13/16 12:35 Problem List - Problems (1) Abnormal liver function tests Code(s): R79.89 - OTHER SPECIFIED ABNORMAL FINDINGS OF BLOOD CHEMISTRY (2) Anemia Code(s): D64.9 - ANEMIA, UNSPECIFIED Qualifiers: Qualified Code(s): D64.9 - Anemia, unspecified (3) Edema of both legs Code(s): R60.0 - LOCALIZED EDEMA (4) Exertional dyspnea Code(s): R06.09 - OTHER FORMS OF DYSPNEA (5) Renal insufficiency Code(s): N28.9 - DISORDER OF KIDNEY AND URETER, UNSPECIFIED (6) Abdominal pain Code(s): R10.9 - UNSPECIFIED ABDOMINAL PAIN (7) Abnormal vaginal bleeding Code(s): N93.9 - ABNORMAL UTERINE AND VAGINAL BLEEDING, UNSPECIFIED (8) Headache Code(s): R51 - HEADACHE (9) Hypertension Code(s): I10 - ESSENTIAL (PRIMARY) HYPERTENSION (10) IBS (irritable bowel syndrome) Code(s): K58.9 - IRRITABLE BOWEL SYNDROME WITHOUT DIARRHEA (11) Lower abdominal pain Code(s): R10.30 - LOWER ABDOMINAL PAIN, UNSPECIFIED (12) Medication refill Code(s): Z76.0 - ENCOUNTER FOR ISSUE OF REPEAT PRESCRIPTION (13) Rib pain on left side Code(s): R07.81 - PLEURODYNIA (14) Viral syndrome Code(s): B34.9 - VIRAL INFECTION, UNSPECIFIED Assessment/Plan - Problems (1) Abnormal liver function tests Assessment/Plan: liver mass. Hypoglycemic; hyperkalemic; hepatic encepalopathy. More lethargic; now intubated. On dopamine; sodium bicarbonate. treat hyperkalemia. Requires transfer to tertiary center. Poor prognosis. Code(s): R79.89 - OTHER SPECIFIED ABNORMAL FINDINGS OF BLOOD CHEMISTRY (2) Anemia Assessment/Plan: Received PRBCs (one unit); f/u HB, anemia workup. On IV heparin for presumed PE, though pt's marked abdominal distention is likely severely compromising respiratory capability. Code(s): D64.9 - ANEMIA, UNSPECIFIED Qualifiers: Qualified Code(s): D64.9 - Anemia, unspecified (3) Edema of both legs Code(s): R60.0 - LOCALIZED EDEMA (4) Exertional dyspnea Code(s): R06.09 - OTHER FORMS OF DYSPNEA (5) Liver mass, right lobe Code(s): R16.0 - HEPATOMEGALY, NOT ELSEWHERE CLASSIFIED (6) Renal insufficiency Code(s): N28.9 - DISORDER OF KIDNEY AND URETER, UNSPECIFIED (7) Hypertension Code(s): I10 - ESSENTIAL (PRIMARY) HYPERTENSION (8) Lower abdominal pain Code(s): R10.30 - LOWER ABDOMINAL PAIN, UNSPECIFIED (9) Abnormal echocardiogram Assessment/Plan: BAM (done to assess abnormalities noted on TTE): normal LVEF; no pulmonary valve abnormality; no vegetations; small pericardial effusion; RVOT abnormality is an artifact. Code(s): R93.1 - ABNORMAL FINDINGS ON DX IMAGING OF HEART AND COR CIRC Assessment/Plan ccu time spent 35 minutes.
[2016-12-14] MEDS: SODIUM BICARBONATE 650 MG TABLET PO SCH (13:13)
[2016-12-14 13:57] LABS: SGOT/AST 5751 U/L (15-37)
--- NOTE | 2016-12-14 13:57 | PATH ---
Surgical Pathology Report Patient Name: SUNITA BRYANT [facility]. Rec. #: [id number] /Age/Gender: 1955 (Age: 61) / F Account: [id number] Location: [facility] GENERAL CLERK Taken: 12/13/2016 Received: 12/13/2016 Reported: 12/14/2016 Physicians: Radha Kruse M.D. Specimen(s) Received PERIPHERAL BLOOD Clinical History Leukocytosis; r/o lymphoproliferative disorder Final Diagnosis FLOW CYTOMETRY PERFORMED AND INTERPRETED AT [place], [place] ([id number]) SHOWED THE FOLLOWING: INTERPRETATION: Slightly left shifted granulocytes. In the sample analyzed there is no evidence of B or T-cell proliferative disorders or increased blasts. Comment: Correlations with molecular studies may be beneficial in order to assess the peripheral blood involvement by a myeloproliferative process. Phenotype: In the sample analyzed, there is a mixed population of granulocytes, monocytes and lymphoid cells. CD34+ myeloblasts are < 0.1%. Granulocytes are 91% of total cells. Monocytes are 5% of total cells. There is no overt abnormal myeloid antigen expression. The B-cells (<1% of total) appear polytypic. The T-cells (2% of total) show no salcido T-cell antigenic deletion. The CD4:CD8 ratio is 7.6:1. Cytomorphology: Leukocytosis is slightly left shifted neutrophilia; nucleated red blood cells present. Electronically Signed Christiano Peralta M.D. Addendum Reported: 12/16/2016 Addendum Diagnosis BCR-ABL GENE REARRANGEMENT-QUANTITATIVE REAL TIME PCR ANALYSIS (IS) PERFORMED AND INTERPRETED AT [facility] [place], [place] ([id number]) SHOWED THE FOLLOWING: RESULTS: NEGATIVE BCR/ABL MAJOR BREAKPOINTS (b2a2 AND b3a2): NOT DETECTED. BCR/ABL MINOR BREAKPOINT (e1a2): NOT DETECTED. INTERPRETATION: NO BCR-ABL TRANSLOCATION WAS DETECTED IN THIS SAMPLE. Christiano Peralta M.D. Addendum Reported: 12/16/2016 Addendum Diagnosis JAK2 V617F MUTATION ANALYSIS BY PCR PERFORMED AND INTERPRETED AT [facility] [place], [place] ([id number]) SHOWED THE FOLLOWING: RESULTS: ONLY THE WILD-TYPE JAK2 SEQUENCE WAS DETECTED. INTERPRETATION: NEGATIVE FOR JAK2 V617F MUTATION. Christiano Peralta M.D. Addendum Reported: 12/22/2016 Addendum Diagnosis CALRETICULIN (CALR) PERFORMED AND INTERPRETED AT [facility], [place], [place] ([id number]) SHOWED THE FOLLOWING: RESULTS: No mutation was detected in exon 9 of the calreticulin gene (CALR) by PCR fragment analysis. INTERPRETATION: CALR MUTATION (exon 9): Not Detected. Comment: Among the JAK2 V617F negative MPNs, CALR mutations are detected in 67% of those with ET and 88% of those with PMF and are much less commonly seen in other hematopoietic neoplasms. CALR mutations are mutually exclusive with JAK2 or MPL mutations. CALR mutation testing also has prognostic value since CALR mutations are associated with longer survival and fewer thrombotic events as compared to JAK2 mutations. Christiano Peralta M.D. Gross Description Received are 2 green top tubes of blood which are sent to [facility]. 12/13/201612/13/2016
--- NOTE | 2016-12-14 14:01 | PN ---
Teaching Attending Note Name of Resident: Scout Parkinson ATTENDING PHYSICIAN STATEMENT I saw and evaluated the patient. I reviewed the resident's note and discussed the case with the resident. I agree with the resident's findings and plan as documented. SUBJECTIVE: Pt seen and examined in the ICU. Events overnight noted. Remains intubated, sedated on dopamine gtt. OBJECTIVE: Last Vital Signs Temp Pulse Resp BP Pulse Ox 97.8 F 54 L 20 97/49 100 12/14/16 10:00 12/14/16 12:37 12/14/16 12:37 12/14/16 12:37 12/13/16 22:20 Intake & Output 12/11/16 12/12/16 12/13/16 12/14/16 23:59 23:59 23:59 23:59 Intake Total 1952 2852 3874 3819.9 Output Total 750 1075 450 0 Balance 1202 1777 3424 3819.9 Weight 234 lb 6.4 oz 234 lb 7 oz 246 lb 11.156 oz 263 lb 9.6 oz Gen: intubated, sedated, tachypneic Heart: RRR Lung: decreased breath sounds at the bases Abd: distended, tense Ext: + edema CBC, BMP 12/14/16 06:00 12/14/16 12:20 Active Medications Albumin Human (Albumin Human 25%) 12.5 gm IVPB Q30M KEITH Stop: 12/14/16 14:01 Albuterol Sulfate (Ventolin 0.083% Nebulizer Soln -) 1 amp NEB Q4H PRN PRN Reason: SHORT OF BREATH/WHEEZING Last Admin: 12/14/16 06:24 Dose: 1 amp Albuterol Sulfate (Ventolin 0.083% Nebulizer Soln -) 1 amp NEB Q15M KEITH Stop: 12/14/16 14:31 Piperacillin Sod/Tazobactam Sod (Zosyn 3.375gm Ivpb (Pre-Docked)) 50 mls @ 100 mls/hr IVPB Q8H-IV KEITH Last Admin: 12/14/16 09:35 Dose: 100 mls/hr Propofol (Diprivan -) 100 mls @ 3.357 mls/hr IVPB TITR KEITH; 5 MCG/KG/MIN PRN Reason: Protocol Last Titration: 12/14/16 01:20 Dose: 0 mcg/kg/min Sodium Bicarbonate 75 meq/ (Dextrose/Sodium Chloride) 1,075 mls @ 150 mls/hr IV ASDIR KEITH Last Admin: 12/13/16 16:10 Dose: 150 mls/hr Dopamine HCl/Dextrose (Dopamine 400 Mg/D5w -) 250 mls @ 20.981 mls/hr IVPB TITR KEITH; 5 MCG/KG/MIN PRN Reason: Protocol Last Admin: 12/14/16 02:00 Dose: 20.981 mls/hr Norepinephrine Bitartrate 8, (000 mcg/ Sodium Chloride) 1,000 mls @ 37.5 mls/ hr IV TITR KEITH; 5 MCG/MIN PRN Reason: Protocol Morphine Sulfate (Morphine Injection -) 3 mg IVPUSH Q4H PRN PRN Reason: Pain >6 Last Admin: 12/13/16 12:56 Dose: 3 mg Sodium Bicarbonate (Sodium Bicarbonate -) 650 mg PO BID KEITH Last Admin: 12/14/16 13:13 Dose: Not Given ASSESSMENT AND PLAN: Liver Mass/Hepatomegaly Acute Liver Failure Acute Kidney Injury Hyperkalemia r/o Tumor Lysis Syndrome Elevated R Hemidiaphragm from above Severe Metabolic Acidosis Lactic Acidosis Anemia - on empiric antibiotics - add levophed gtt to dopamine gtt to maintain MAP >65 - will need urgent HD - monitor urine output, creatinine - continue IVF, bicarb - albuterol standing - for transfer to tertiary care center - poor overall prognosis critical care time spent in reviewing chart, evaluating patient and formulating plan 35 min
[2016-12-14 15:03] LABS: LDH 13836 U/L (84-246)
--- NOTE | 2016-12-14 15:17 | PN ---
Progress Note (short form) - Note Progress Note: Initially call was made to [facility] in morning: sill waiting for ICu bed call was made to [facility] for transfer of patient. Case discussed with with Dr cano. condition of patient was discussed. They didnt accept the patient as her liver mass is [id number] so she is nt a candiade for liver transplant. They also states that patient is critically ill on venti support, presser support, liver failure, renal failure. Dr Cano states that patient is not stable enough to be transferred.
[2016-12-14] MEDS ORDERED: SODIUM BICARBONATE 4.2% 5 MEQ/10 ML DISP.SYRIN IVPUSH ONE (15:37)
[2016-12-14] MEDS: ALBUTEROL SO4 0.083% IH SOL 2.5 MG/3 ML VIAL.NEB. NEB SCH ×2 (15:37→15:38)
[2016-12-14] MEDS ORDERED: CALCIUM GLUCONATE 10% - 1,000 MG/10 ML VIAL IVPUSH ONE (15:38)
--- NOTE | 2016-12-14 16:18 | PN ---
GI Progress Note Subjective: Sedated on vent On pressors Receiving hemodialysis - Objective Vital Signs: Vital Signs Temperature 97.6 F 12/14/16 14:13 Pulse Rate 56 L 12/14/16 14:13 Respiratory Rate 18 12/14/16 15:00 Blood Pressure 95/36 12/14/16 14:13 O2 Sat by Pulse Oximetry (%) 98 12/14/16 15:00 Constitutional: Calm Eyes: Yes: Sclera Icterus Cardiovascular: Yes: Bradycardia Respiratory: Yes: Diminished (at bases bilaterally) Gastrointestinal Inspection: Yes: Distention (protuberant) ...Auscultate: Yes: Normoactive Bowel Sounds ...Palpate: No: Tenderness (No grimacing upon palpation) ...Percussion: No: Tympanitic Edema: Yes Edema: LLE: 1+, RLE: 1+ Neurological: Yes: Other (sedated on vent) Labs: CBC, BMP 12/14/16 06:00 12/14/16 12:20 INR, PTT INR 2.75 (0.82-1.09) H 12/14/16 06:00 Fibrinogen 397.0 mg/dL (238-498) 12/13/16 12:35 Problem List - Problems (1) Liver mass, right lobe Assessment/Plan: Clinically decompensated now on pressors Transfer to [facility] arranged however unclear if patient's clinical status will permit. Unstable for attempt at biopsy at this time Overall grim prognosis Code(s): R16.0 - HEPATOMEGALY, NOT ELSEWHERE CLASSIFIED
[2016-12-14] MEDS: ALBUMIN HUMAN 25% 12.5 GM/50 ML VIAL IVPB SCH ×4 (17:15→18:45)
[2016-12-14] MEDS: DEXTROSE 5%-0.45% SALINE 1,000 ML with SODIUM BICARBONATE 8.4% - 75 MEQ IV SCH (17:25)
[2016-12-14] MEDS ORDERED: PROPOFOL 100 ML ONE (21:07)
[2016-12-14 21:25] LABS: ANION GAP 32 (8-16); CO2 8 mmol/L (21-32); CREATININE 5.4 mg/dL (0.55-1.02); GLUCOSE,RANDOM 224 mg/dL (74-106)
[2016-12-14 21:45] LABS: CALCIUM 7.3 mg/dL (8.5-10.1)
[2016-12-14 21:58] VITALS: TEMP 97.8
[2016-12-14 21:59] VITALS: BP 120/64; PULSE 90
[2016-12-14 23:41] LABS: ANION GAP 24 (8-16); CALCIUM 7.6 mg/dL (8.5-10.1); CO2 19 mmol/L (21-32); CREATININE 3.3 mg/dL (0.55-1.02); GLUCOSE,RANDOM 182 mg/dL (74-106)
[2016-12-15 00:12] LABS: A/G RATIO 0.5 (0.7-1.7); ALBUMIN 2.4 g/dL (2.9-4.4); GLOBULIN, TOTAL 4.6 g/dL (2.2-3.9)
[2016-12-15 00:12] LABS: HEP B SURFACE AB Reactive (.)
[2016-12-20 00:06] LABS: ALBUMIN FOR UPE 16.4 % (.); M-SPIKE, % Comment: % (Not Observed)
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
== END 2016-12-14 21:30 | disposition short-term general hospital (02) | DRG 441 ==
LOC: JER 17:10 → JERBED 12-06 02:48 → J7W 12-06 05:53 → J4W 12-06 17:23 → JICU 12-11 17:08
PROVIDERS: ADMIT Internal Medicine; ATTEND Nurse Practitioner Acute Care
PROC: B246ZZ4 Ultrasonography of Right and Left Heart, Transesophageal (ICD-10-PCS; 2016-12-08)
PROC: 30233H1 Transfusion of Nonautologous Whole Blood into Peripheral Vein, Percutaneous Approach (ICD-10-PCS; 2016-12-11)
PROC: 0BH17EZ Insertion of Endotracheal Airway into Trachea, Via Natural or Artificial Opening (ICD-10-PCS; principal; 2016-12-13)
PROC: 05HM33Z Insertion of Infusion Device into Right Internal Jugular Vein, Percutaneous Approach (ICD-10-PCS; 2016-12-13)
PROC: B513ZZA Fluoroscopy of Right Jugular Veins, Guidance (ICD-10-PCS; 2016-12-13)
PROC: 5A1935Z Respiratory Ventilation, Less than 24 Consecutive Hours (ICD-10-PCS; 2016-12-14)
PROC: 05PY33Z Removal of Infusion Device from Upper Vein, Percutaneous Approach (ICD-10-PCS; 2016-12-14)
PROC: 05HM33Z Insertion of Infusion Device into Right Internal Jugular Vein, Percutaneous Approach (ICD-10-PCS; 2016-12-14)
PROC: B543ZZA Ultrasonography of Right Jugular Veins, Guidance (ICD-10-PCS; 2016-12-14)
PROC: 5A1D00Z (ICD-10-PCS; 2016-12-14)
DX: R16.0 Hepatomegaly, not elsewhere classified (principal); K72.00 Acute and subacute hepatic failure without coma; G93.41 Metabolic encephalopathy; K76.7 Hepatorenal syndrome; J96.00 Acute respiratory failure, unspecified whether with hypoxia or hypercapnia; F11.20 Opioid dependence, uncomplicated; N17.9 Acute kidney failure, unspecified; E87.2 Acidosis; Z68.42 Body mass index [BMI] 45.0-49.9, adult; I50.9 Heart failure, unspecified; E16.2 Hypoglycemia, unspecified; E87.5 Hyperkalemia; E87.6 Hypokalemia; E66.9 Obesity, unspecified; I95.9 Hypotension, unspecified; R62.7 Adult failure to thrive; I10 Essential (primary) hypertension; E78.5 Hyperlipidemia, unspecified; Z85.819 Personal history of malignant neoplasm of unspecified site of lip, oral cavity, and pharynx; Z96.652 Presence of left artificial knee joint; F17.210 Nicotine dependence, cigarettes, uncomplicated; D64.9 Anemia, unspecified; D72.829 Elevated white blood cell count, unspecified; Z95.5 Presence of coronary angioplasty implant and graft; R74.0 Nonspecific elevation of levels of transaminase and lactic acid dehydrogenase [LDH]
CPT/HCPCS: 31500; 36415; 36430; 36600; 70450-TC; 71010-TC; 74000-TC; 74176-TC; 76700-TC; 76705-TC; 80048; 80053; 80076; 80307; 81003; 81015; 82105; 82140; 82272; 82436; 82553; 82570; 82728; 82784; 82803; 82955; 83540; 83550; 83605; 83615; 83735; 83880; 83930; 84100; 84133; 84155; 84156; 84157; 84165; 84300; 84466; 84484; 84540; 84550; 85025; 85027; 85041; 85379; 85384; 85610; 85651; 85730; 86140; 86704; 86706; 86708; 86803; 86850; 86880; 86900; 86901; 86922; 87040; 87086; 87340; 87389; 88300-TC; 93005; 93010; 93306-TC; 93312; 93325; 93970-TC; 94002; 94640; 99283-25; G0480; J1644; P9038; P9047; P9058